=== PATIENT | female | born 1940 | race Caucasian/White ===

== ENCOUNTER → 2019-06-14 13:57 | Outpatient (BNVA) | payer MEDICARE, OTHER, SELFPAY | PROVIDERS: Family Provider Family Medicine; PCP Family Medicine; Visit Provider Urology | DX: N39.0 Urinary tract infection, site not specified (principal); R33.9 Retention of urine, unspecified | CPT/HCPCS: 81001 ==

== ENCOUNTER 2019-09-08 13:03 | Outpatient (RCR) | payer MEDICARE, OTHER, SELFPAY | END 2019-09-08 23:59 | disposition home or self-care (01) | LOC: WOUND 13:03 | PROVIDERS: Family Provider Family Medicine; PCP Family Medicine; Referring Provider Nurse Practitioner Family; Visit Provider Nurse Practitioner Family | DX: E11.621 Type 2 diabetes mellitus with foot ulcer (principal); L97.512 Non-pressure chronic ulcer of other part of right foot with fat layer exposed | CPT/HCPCS: 11042; 99213; A6545; L3260 ==

== ENCOUNTER 2019-09-22 12:56 | Outpatient (CLI) | payer MEDICARE, OTHER, SELFPAY | END 2019-09-22 12:57 | disposition home or self-care (01) | LOC: WOUND 12:59 | PROVIDERS: Family Provider Family Medicine; PCP Family Medicine; Visit Provider Nurse Practitioner Family | DX: E11.621 Type 2 diabetes mellitus with foot ulcer (principal); L97.512 Non-pressure chronic ulcer of other part of right foot with fat layer exposed | CPT/HCPCS: 11042 ==

== ENCOUNTER → 2019-10-05 12:59 | Outpatient (BNVA) | payer MEDICARE, OTHER, SELFPAY | PROVIDERS: Family Provider Family Medicine; PCP Family Medicine; Visit Provider Nurse Practitioner Family | DX: N39.0 Urinary tract infection, site not specified (principal) | CPT/HCPCS: 81001 ==

== ENCOUNTER 2019-12-26 10:13 | Day surgery (SDC) | payer MEDICARE, OTHER, SELFPAY ==
[2019-12-23 08:43] VITALS: BMI 20.2
[2019-12-26 10:37] VITALS: BP 118/62; PULSE 63; RESP 18; TEMP 37.1; O2SAT 98
[2019-12-26] MEDS: sodium chloride 0.9% 1,000 ML 30 ML IV (10:45)
[2019-12-26 10:52] LABS: Glucose Point of Care 121 mg/dL (70-110)
--- NOTE | 2019-12-26 11:08 | ANES.PREANE2 ---
Pre-Anesthetic Assessment Pre-Anesthetic Assessment: Height/Weight: Height 1.65 m Weight 55.338 kg Temp Pulse Resp BP Pulse Ox 98.7 F 63 18 118/62 98 12/26/19 10:37 12/26/19 10:37 12/26/19 10:37 12/26/19 10:37 12/26/19 10:37 Preop Diagnosis: history of BE Proposed Procedure: Operation Date: 12/26/19 11:30 Proposed Procedures p EGD 64779 K22.70(Not Applicable) - Shahriar Lee MD Familial anesthetic complications: none Was Beta Chris taken within 24 hours: Yes Last intake: Intake Last Liquid Date 12/25/19 Last Liquid Time 17:00 Last Solid Date 12/25/19 Last Solid Time 17:00 Social: Social History: No alcohol and No tobacco Airway: Submandibular: WNL Cervical ROM: WNL MP: 1 Dentition: Chipped and False Pulmonary: Pulmonary: None reported CV/HEM: CV/HEM: Afib and HTN : : UTI Hepatic: Hepatic: None reported GI: GI: GERD (controlled) Metabolic: Metabolic: DM and Hyperlipidemia Musc/skel: Musc/skel: OA/DJD Neuropsych: Neuropsych: None reported Anesthetic Plan: ASA status: 3 Anesthesia: MAC Risk of > 500 ml blood loss (7ml/kg in children): No Meds/Allergies Current Medications: Current Medications Generic Name Dose Route Start Last Admin Trade Name Freq PRN Reason Stop Dose Admin Sodium Chloride 1,000 mls @ 30 ml s/hr 12/26/19 10:30 12/26/19 10:45 Sodium Chloride 0.9% IV 12/27/19 10:29 30 mls/hr .Q24H PARVIN Administration PFSH Anesthesia PFSH: Medical History (Updated 12/22/19 @ 15:03 by Shahriar Lee MD) Amputated toe of right foot Cataract BILATERAL REMOVAL Incomplete emptying of bladder Recurrent UTI Surgical History H/O shoulder surgery History of appendectomy History of hysterectomy History of knee replacement RIGHT KNEE History of tonsillectomy Family History Other Bleeding disorder Diabetes Seizure Social History (Updated 12/22/19 @ 14:20 by Manjula Pleasant, CT) Smoking and tobacco status: never smoked Alcohol intake: never Adopted: No Caregiver/support person: No Lives independently: Yes Marital status: / Current occupational status: retired History of recent travel: No Data Anesthesia Other Labs: Laboratory Results - last 48 hr 12/26/19 10:47 POC Glucose 121 Cardiac Studies: No Data to Display
--- NOTE | 2019-12-26 11:14 | W.PM.OPSUD ---
Surgery/Procedure H&P Update DATE OF PROCEDURE: December 26, 2019 DATE H&P PERFORMED: 12/22/19 PREOP DIAGNOSIS: history of BE PLANNED PROCEDURE: Operation Date: 12/26/19 11:30 Proposed Procedures p EGD 62000 K22.70(Not Applicable) - Shahriar Lee MD
[2019-12-26 11:24] VITALS: BP 106/54; PULSE 54; RESP 16; TEMP 36.6; O2SAT 98
[2019-12-26 11:40] VITALS: BP 100/55; PULSE 55; RESP 18; O2SAT 98
== END 2019-12-26 11:55 | disposition home or self-care (01) ==
PROVIDERS: PCP Family Medicine; Visit Provider Internal Medicine
PROC: 0DJ08ZZ Inspection of Upper Intestinal Tract, Via Natural or Artificial Opening Endoscopic (ICD-10-PCS; CPT 43235; principal; 2019-12-26 11:30)
DX: K22.70 Barrett's esophagus without dysplasia (principal); K44.9 Diaphragmatic hernia without obstruction or gangrene; R63.4 Abnormal weight loss; I48.91 Unspecified atrial fibrillation; I10 Essential (primary) hypertension; E11.9 Type 2 diabetes mellitus without complications; E78.5 Hyperlipidemia, unspecified; Z79.01 Long term (current) use of anticoagulants; Z79.84 Long term (current) use of oral hypoglycemic drugs
CPT/HCPCS: 12345; 36416; 43239; 82962; 88305; J2704; J7030

== ENCOUNTER 2020-01-11 15:08 | Outpatient (CLI) | payer MEDICARE, OTHER, SELFPAY | END 2020-01-11 15:09 | disposition home or self-care (01) | LOC: WOUND 15:09 | PROVIDERS: PCP Family Medicine; Visit Provider Emergency Medicine | DX: E11.621 Type 2 diabetes mellitus with foot ulcer (principal); L97.512 Non-pressure chronic ulcer of other part of right foot with fat layer exposed; L97.422 Non-pressure chronic ulcer of left heel and midfoot with fat layer exposed | CPT/HCPCS: 11042; 87070; 87077; 87176; 87186; 87205; G0463 ==

== ENCOUNTER 2020-01-17 12:44 | Outpatient (CLI) | payer MEDICARE, OTHER, SELFPAY ==
--- NOTE | 2020-01-17 12:51 | XRR_ITS ---
PROCEDURE INFORMATION: Exam: XR Right Foot Complete Exam date and time: 01/17/2020 1:16 PM Age: 79 years old Clinical indication: Condition or disease; Other: Pain/redness/non healing ulcer/? Osteomyelitis; Prior surgery; Surgery type: Digit amputation TECHNIQUE: Imaging protocol: XR Right foot. Views: 3 or more views. COMPARISON: CR Foot 3 views, RIGHT* [id number] 08/15/2016 2:35 PM FINDINGS: Bones/joints: No acute fracture. Interval amputation of the 1st distal phalanx, prior amputations of the distal 2nd and 3rd phalanges. No definite cortical destruction. Soft tissues: Soft tissue swelling in the great toe. XR/XR foot RT min 3V* [id number] IMPRESSION: Postoperative changes, soft tissue swelling. Consider follow-up MRI if indicated.
--- NOTE | 2020-01-17 12:51 | XRR_ITS ---
PROCEDURE INFORMATION: Exam: XR Left Foot Complete Exam date and time: 01/17/2020 1:26 PM Age: 79 years old Clinical indication: Condition or disease; Other: Pain/redness/nonhealing ulcer/? Osteomyelitis; Prior surgery; Surgery type: Digit amputation TECHNIQUE: Imaging protocol: XR Left foot. Views: 3 or more views. COMPARISON: CR Foot 3 views, LEFT* [id number] 07/23/2016 2:58 PM FINDINGS: Bones/joints: No fracture or destructive bone lesion. Osteopenia. Soft tissues: Soft tissue swelling. No soft tissue air/gas. XR/XR foot LT min 3V* [id number] IMPRESSION: Soft tissue swelling.
== END 2020-01-17 12:45 | disposition home or self-care (01) ==
LOC: RAD 12:48
PROVIDERS: PCP Family Medicine; Visit Provider Emergency Medicine
DX: M79.672 Pain in left foot (principal); M79.671 Pain in right foot; M79.89 Other specified soft tissue disorders; L53.9 Erythematous condition, unspecified; L97.529 Non-pressure chronic ulcer of other part of left foot with unspecified severity; L97.519 Non-pressure chronic ulcer of other part of right foot with unspecified severity
CPT/HCPCS: 73630

== ENCOUNTER 2020-01-18 14:45 | Outpatient (CLI) | payer MEDICARE, OTHER, SELFPAY | END 2020-01-18 14:46 | disposition home or self-care (01) | LOC: WOUND 14:46 | PROVIDERS: PCP Family Medicine; Visit Provider Emergency Medicine | DX: E11.621 Type 2 diabetes mellitus with foot ulcer (principal); L97.512 Non-pressure chronic ulcer of other part of right foot with fat layer exposed; L97.422 Non-pressure chronic ulcer of left heel and midfoot with fat layer exposed | CPT/HCPCS: 11042 ==

== ENCOUNTER 2020-01-24 12:38 | Outpatient (CLI) | payer MEDICARE, OTHER, SELFPAY ==
--- NOTE | 2020-01-24 12:48 | USCV_ITS ---
Stella Kang Age: 79 Gender: F : 1940 Exam Date: 01/24/2020 12:38 Ordering Phys: Jodi Menchaca DO Technologist: Exam Location: [facility] – [place]_ Indication: PAIN, REDNESS NONHEALING ULCER RIGHT LEFT Brachial 134.00 mmHg Brachial 137.00 mmHg Pressure (mmHg) Waveform Pressure (mmHg) Waveform Above Knee 167.00 135.00 Below Knee 188.00 145.00 SEISMIC PROSPECTING OBSERVER HELPER 168.00 163.00 DPA 141.00 1.19 Ankle/Brachial Index 1.23 102.00 Pre-Exercise Toe Pressure 88.00 0.74 Pre-Exercise Toe/Brachial Index 0.64 FINDINGS Normal resting ABIs bilaterally Normal resting TBI on the right side with a slightly diminished resting TBI on the left side CONCLUSIONS 1. No significant arterial obstruction on the right side. 2. Normal resting SUKI with a slightly diminished resting TBI on the left side, suggestive of mild peripheral artery disease, involving the distal vessels Dr Selam Mitchell MD [facility] (Electronically Signed) Final Date: 24 January 2020 13:49 S
== END 2020-01-24 12:39 | disposition home or self-care (01) ==
LOC: RAD 12:42
PROVIDERS: PCP Family Medicine; Visit Provider Emergency Medicine
DX: M79.604 Pain in right leg (principal); M79.605 Pain in left leg; L53.9 Erythematous condition, unspecified; L97.529 Non-pressure chronic ulcer of other part of left foot with unspecified severity; L97.519 Non-pressure chronic ulcer of other part of right foot with unspecified severity
CPT/HCPCS: 93923

== ENCOUNTER 2020-01-25 14:19 | Outpatient (CLI) | payer MEDICARE, OTHER, SELFPAY ==
[2020-01-25 16:03] LABS: Basophils % 0.6 %; Eosinophils # 0.1 10^3/uL (0.0-0.8); Eosinophils % 2.6 %; Hematocrit 33.7 % (37.0-47.0); Hemoglobin 10.6 g/dL (11.5-15.3); Lymphocytes # 1.1 10^3/uL (0.8-4.8); Lymphocytes % 19.6 %; Mean Corpuscular HGB Conc 31.5 g/dL (30.0-36.0); Mean Corpuscular Volume 92.3 fL (81-99); Mean Platelet Volume 9.6 fL (7.4-10.4); Monocytes # 0.5 10^3/uL (0.2-0.9); Monocytes % 8.8 %; Neutrophils % 67.8 %; Nucleated Red Blood Cells % 0 %; Platelet Count 319 10^3/cmm (130-400); Red Blood Count 3.65 10^6/uL (4.1-5.3); Red Cell Distribution Width 14.3 % (12.1-15.1); White Blood Count 5.5 10^3/uL (4.0-10.0)
[2020-01-25 16:46] LABS: Estmated Average Glucose 123; Hemoglobin A1C 5.9 % (4.0-6.0)
[2020-01-25 17:21] LABS: Alanine Aminotransferase 8 U/L (0-33); Albumin Level 3.9 g/dL (3.5-5.2); Alkaline Phosphatase 59 IU/L (35-105); Anion Gap 15.6 (5-19); Aspartate Amino Transferase 12 U/L (0-32); Blood Urea Nitrogen 13 mg/dL (8-23); Calcium 8.8 mg/dL (8.5-10.5); Carbon Dioxide 25 mmol/L (22-29); Chloride 99 mmol/L (98-107); Globulin 3.5 g/dL (1.3-4.6); Glucose 139 mg/dL (65-115); Osmolality Calculated 282 mOsm/kg (285-295); Potassium 4.6 mmol/L (3.5-5.1); Prealbumin 19.7 mg/dL (20-40); Sodium 135 mmol/L (136-145); Total Bilirubin 0.3 mg/dL (0.15-1.2); Total Protein 7.4 g/dL (6.6-8.7)
[2020-01-25 17:54] LABS: Erythrocyte Sedimentation Rate 54 mm/hr (0-15)
== END 2020-01-25 14:20 | disposition home or self-care (01) ==
LOC: WOUND 14:20
PROVIDERS: PCP Family Medicine; Visit Provider Emergency Medicine
DX: E11.621 Type 2 diabetes mellitus with foot ulcer (principal); L97.512 Non-pressure chronic ulcer of other part of right foot with fat layer exposed; L97.422 Non-pressure chronic ulcer of left heel and midfoot with fat layer exposed
CPT/HCPCS: 11042; 36415; 80053; 83036; 84134; 85025; 85651; 86140

== ENCOUNTER 2020-01-30 09:16 | Outpatient (RCR) | payer MEDICARE, OTHER, SELFPAY ==
--- NOTE | 2020-01-23 07:41 | XR_ITS ---
WS: [id number] EXAM: LEFT FOOT: 3 VIEWS DATE OF EXAMINATION: 01/23/2020, 0839 hours COMPARISON: Left foot examination from 01/17/2020. HISTORY: 79 years old with pain and redness. Nonhealing ulcer. FINDINGS: Bone density is markedly decreased. Slight arthritis first metatarsal phalangeal joint with slight bu nion formation medial first metatarsal head as well as slight hallux valgus deformity. Slight arteria l calcified plaque changes. Slight arthritis talonavicular articulation. 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 Slight talar beaking. Generalized soft tissue edema seen over the metatarsal r egions. No fracture, lytic or blastic process is seen. No gas in the soft tissue seen. Arterial ather osclerotic plaque changes noted. XR/XR foot LT min 3V* [id number] IMPRESSION: Decreased bone density. Changes as described. Findings suggesting subtalar coal ition. No acute bony abnormality. Generalized soft tissue edema suggesting cell ulitis.
--- NOTE | 2020-01-23 07:41 | XR_ITS ---
WS: [id number] EXAM: RIGHT FOOT: 3 VIEWS DATE OF EXAMINATION: 01/23/2020, 0835 hours COMPARISON: Right foot examination from 01/17/2020 and 08/15/2016 HISTORY: 79 years old with nonhealing ulcers. Status post distal first great toe resection. FINDINGS: Bone density remains decreased. Amputation of the distal phalanx of the great toe is similar. General ized soft tissue edema seen in the foot. There is amputation of the second and third toes beyond the proximal phalanges again noted. No bony destruction to suggest ongoing osteomyelitis is seen. There a ppears to be irregularity involving the great toe remaining tip soft tissues suggesting a nonhealing wound. Soft tissue edema in the lower leg with calcifications suggesting multiple bouts of prior cell ulitis. Heel spur plantar aponeurosis insertion. No fracture, lytic or blastic process is seen. No so ft tissue abnormality noted. XR/XR foot RT min 3V* [id number] IMPRESSION: Amputation of the first, second and third distal toes as described. No definite findings of osteomyelitis. Generalized soft tissue edema suggesting cellulitis.
--- NOTE | 2020-01-23 07:41 | USCV_ITS ---
Stella Kang Age: 79 Gender: F : 1940 Exam Date: 01/23/2020 07:55 Ordering Phys: Jodi Menchaca DO Technologist: He Modi Exam Location: [facility] [place] Indication: HISTORY: Lower extremity edema. PROCEDURES: FINDINGS: All deep veins demonstrated compressibility without evidence of intraluminal thrombus or increased echogenicity. Spectral analysis of Doppler signals demonstrates normal response to compression maneuvers indicating patency without obstruction. Reflux determinations were made with the patient in the dependent position, the weight being on the contralateral leg. Vein measurements and reflux times are listed below were applicable. SIGNIFICANT REFLUX IN RT LESSER SAPH. SIGNIFICANT REFLUX IN LT GSV DIST CONCLUSIONS No evidence of DVT in the above-mentioned identifiable veins. Significant venous reflux of greater than 500 milliseconds(2529) were noted at the right proximal small saphenous vein segment, which was 0.3 cm in diameter and 1.2 cm deep from the surface. Significant venous reflux of greater than 500 ms(2009) was also noted at the distal greater saphenous vein segment on the left side, found to be 0.58 cm in diameter and 1.64 cm deep from the surface. No significant venous reflux was noted in the deep veins. Dr Selam Mitchell MD [facility] (Electronically Signed) Final Date: 23 January 2020 17:42 S
--- NOTE | 2020-01-23 07:41 | NM_ITS ---
WS: [id number] THREE-PHASE BONE SCAN HISTORY: PAIN/REDNESS/NONHEALING ULCER COMPARISON: RIGHT foot 01/23/2020 Patient is is injected with 26.4 mCi Tc99m HDP intravenously. Immediate angiographic phase imaging is performed over the area of concern. Static blood pool imaging also performed. Two-hour whole-body sc intigrams performed in anterior and posterior projections. Additional large field of view imaging sub mitted as necessary. 3 phase bone scan imaging is directed to the feet. 3 phase imaging of the distal RIGHT first toe is positive for changes of cellulitis and osteomyelitis . Involve the very distal first toe at the amputation site. Normal soft tissue uptake and renal uptake. Advanced degenerative changes at the LEFT knee joint and prior RIGHT knee arthroplasty. NM/NM bone 3 phase [id number] IMPRESSION: Acute focal osteomyelitis and cellulitis involving the very distal first RIGHT great toe.
--- NOTE | 2020-01-30 10:06 | XR_ITS ---
WS: [id number] CHEST XRAY TECHNIQUE: Portable chest. CLINICAL INFORMATION: PICC PLACEMENT COMPARISON: Mid SVC FINDINGS: Left PICC line with tip in the mid SVC. Heart: Cardiomegaly. Lungs: Lungs are clear. No consolidation or pleural effusion. Chronic emphysematous changes. Bones: Bilateral total shoulder arthroplasties. Osteopenia. Thoracic curve convex right. XR/XR chest 1V portable [id number] IMPRESSION: Left PICC line with tip in the mid SVC. No pneumothorax.
[2020-01-30] MEDS: vancomycin 1,000 MG in sodium chloride 0.9% 250 ML 250 MG IV (11:15)
[2020-01-30 12:32] LABS: Anion Gap 14.2 (5-19); Blood Urea Nitrogen 9 mg/dL (8-23); Calcium 8.6 mg/dL (8.5-10.5); Carbon Dioxide 24 mmol/L (22-29); Chloride 95 mmol/L (98-107); Glucose 127 mg/dL (65-115); Osmolality Calculated 268 mOsm/kg (285-295); Potassium 4.2 mmol/L (3.5-5.1); Sodium 129 mmol/L (136-145)
== END 2020-02-08 23:59 | disposition home or self-care (01) ==
LOC: OPS 09:16
PROVIDERS: PCP Family Medicine; Referring Provider Nurse Practitioner Family; Visit Provider Nurse Practitioner Family
DX: M79.671 Pain in right foot (principal); M79.672 Pain in left foot; R60.9 Edema, unspecified; L03.031 Cellulitis of right toe; M86.8X7 Other osteomyelitis, ankle and foot; Z89.421 Acquired absence of other right toe(s); Z45.2 Encounter for adjustment and management of vascular access device
CPT/HCPCS: 36569; 36592; 71045; 73630; 78315; 80048; 93970; 96365; A9561; J3370; J7050

== ENCOUNTER 2020-02-01 10:15 | Outpatient (CLI) | payer MEDICARE, OTHER, SELFPAY ==
[2020-02-01 10:56] LABS: Anion Gap 14.3 (5-19); Blood Urea Nitrogen 9 mg/dL (8-23); Calcium 8.2 mg/dL (8.5-10.5); Carbon Dioxide 25 mmol/L (22-29); Chloride 98 mmol/L (98-107); Glucose 124 mg/dL (65-115); Osmolality Calculated 276 mOsm/kg (285-295); Potassium 4.3 mmol/L (3.5-5.1); Sodium 133 mmol/L (136-145)
[2020-02-01 11:00] LABS: Vancomycin Trough 11.4 ug/mL (10-15)
== END 2020-02-01 10:16 | disposition home or self-care (01) ==
LOC: LAB 10:17
PROVIDERS: PCP Family Medicine; Visit Provider Emergency Medicine
DX: M86.9 Osteomyelitis, unspecified (principal)
CPT/HCPCS: 80048; 80202

== ENCOUNTER 2020-02-06 20:27 | Outpatient (CLI) | payer MEDICARE, OTHER, SELFPAY ==
[2020-02-06 21:12] LABS: Anion Gap 16.8 (5-19); Blood Urea Nitrogen 12 mg/dL (8-23); Calcium 8.9 mg/dL (8.5-10.5); Carbon Dioxide 26 mmol/L (22-29); Chloride 99 mmol/L (98-107); Glucose 172 mg/dL (65-115); Osmolality Calculated 290 mOsm/kg (285-295); Potassium 3.8 mmol/L (3.5-5.1); Sodium 138 mmol/L (136-145)
== END 2020-02-06 20:28 | disposition home or self-care (01) ==
LOC: LAB 20:30
PROVIDERS: PCP Family Medicine; Visit Provider Emergency Medicine
DX: M86.171 Other acute osteomyelitis, right ankle and foot (principal)
CPT/HCPCS: 80048; 80202

== ENCOUNTER 2020-02-08 14:20 | Outpatient (CLI) | payer MEDICARE, OTHER, SELFPAY | END 2020-02-08 14:21 | disposition home or self-care (01) | LOC: WOUND 14:21 | PROVIDERS: PCP Family Medicine; Visit Provider Nurse Practitioner Family | DX: E11.621 Type 2 diabetes mellitus with foot ulcer (principal); L97.512 Non-pressure chronic ulcer of other part of right foot with fat layer exposed; L97.522 Non-pressure chronic ulcer of other part of left foot with fat layer exposed | CPT/HCPCS: G0463 ==

== ENCOUNTER 2020-02-09 09:02 | Outpatient (CLI) | payer MEDICARE, OTHER, SELFPAY ==
[2020-02-09 09:53] LABS: Anion Gap 15.4 (5-19); Blood Urea Nitrogen 8 mg/dL (8-23); Calcium 8.8 mg/dL (8.5-10.5); Carbon Dioxide 24 mmol/L (22-29); Chloride 99 mmol/L (98-107); Glucose 132 mg/dL (65-115); Osmolality Calculated 278 mOsm/kg (285-295); Potassium 4.4 mmol/L (3.5-5.1); Sodium 134 mmol/L (136-145)
[2020-02-09 10:02] LABS: Vancomycin Trough 26.5 ug/mL (10-15)
== END 2020-02-09 09:03 | disposition home or self-care (01) ==
LOC: LAB 09:04
PROVIDERS: PCP Family Medicine; Visit Provider Emergency Medicine
DX: E11.9 Type 2 diabetes mellitus without complications (principal)
CPT/HCPCS: 80048; 80202

== ENCOUNTER 2020-02-13 08:20 | Outpatient (CLI) | payer MEDICARE, OTHER, SELFPAY ==
[2020-02-13 08:59] LABS: Vancomycin Trough 19.2 ug/mL (10-15)
[2020-02-13 09:07] LABS: Blood Urea Nitrogen 14 mg/dL (8-23); Calcium 8.7 mg/dL (8.5-10.5); Carbon Dioxide 26 mmol/L (22-29); Chloride 98 mmol/L (98-107); Glucose 113 mg/dL (65-115); Osmolality Calculated 283 mOsm/kg (285-295); Sodium 136 mmol/L (136-145)
== END 2020-02-13 08:21 | disposition home or self-care (01) ==
LOC: LAB 08:26
PROVIDERS: PCP Family Medicine; Visit Provider Emergency Medicine
DX: M86.10 Other acute osteomyelitis, unspecified site (principal)
CPT/HCPCS: 80048; 80202

== ENCOUNTER 2020-02-20 09:32 | Outpatient (CLI) | payer MEDICARE, OTHER, SELFPAY ==
[2020-02-20 11:00] LABS: Anion Gap 18.1 (5-19); Blood Urea Nitrogen 10 mg/dL (8-23); Calcium 8.9 mg/dL (8.5-10.5); Carbon Dioxide 24 mmol/L (22-29); Chloride 104 mmol/L (98-107); Glucose 154 mg/dL (65-115); Osmolality Calculated 296 mOsm/kg (285-295); Potassium 4.1 mmol/L (3.5-5.1); Sodium 142 mmol/L (136-145)
[2020-02-20 11:04] LABS: Vancomycin Trough 17.3 ug/mL (10-15)
== END 2020-02-20 09:33 | disposition home or self-care (01) ==
LOC: LAB 09:35
PROVIDERS: PCP Family Medicine; Visit Provider Emergency Medicine
DX: E11.9 Type 2 diabetes mellitus without complications (principal)
CPT/HCPCS: 80048; 80202; 81001

== ENCOUNTER 2020-02-22 13:22 | Outpatient (CLI) | payer MEDICARE, OTHER, SELFPAY | END 2020-02-22 13:23 | disposition home or self-care (01) | LOC: WOUND 13:23 | PROVIDERS: PCP Family Medicine; Visit Provider Nurse Practitioner Family | DX: E11.621 Type 2 diabetes mellitus with foot ulcer (principal); L97.512 Non-pressure chronic ulcer of other part of right foot with fat layer exposed; L97.422 Non-pressure chronic ulcer of left heel and midfoot with fat layer exposed | CPT/HCPCS: 99212 ==

== ENCOUNTER 2020-02-27 10:03 | Outpatient (CLI) | payer MEDICARE, OTHER, SELFPAY ==
[2020-02-27 11:01] LABS: Vancomycin Trough 17.9 ug/mL (10-15)
[2020-02-27 11:02] LABS: Anion Gap 16.7 (5-19); Blood Urea Nitrogen 14 mg/dL (8-23); Calcium 8.6 mg/dL (8.5-10.5); Carbon Dioxide 22 mmol/L (22-29); Chloride 104 mmol/L (98-107); Glucose 195 mg/dL (65-115); Osmolality Calculated 294 mOsm/kg (285-295); Potassium 3.7 mmol/L (3.5-5.1); Sodium 139 mmol/L (136-145)
== END 2020-02-27 10:04 | disposition home or self-care (01) ==
LOC: LAB 10:05
PROVIDERS: PCP Family Medicine; Visit Provider Emergency Medicine
DX: E11.9 Type 2 diabetes mellitus without complications (principal)
CPT/HCPCS: 80048; 80202

== ENCOUNTER 2020-03-01 11:14 | Outpatient (CLI) | payer MEDICARE, OTHER, SELFPAY | END 2020-03-01 11:15 | disposition home or self-care (01) | LOC: WOUND 11:17 | PROVIDERS: PCP Family Medicine; Visit Provider Nurse Practitioner Family | DX: E11.621 Type 2 diabetes mellitus with foot ulcer; L97.512 Non-pressure chronic ulcer of other part of right foot with fat layer exposed; L97.522 Non-pressure chronic ulcer of other part of left foot with fat layer exposed | CPT/HCPCS: 99212 ==

== ENCOUNTER 2020-03-05 16:05 | Outpatient (CLI) | payer MEDICARE, OTHER, SELFPAY ==
[2020-03-05 18:30] LABS: Blood Urea Nitrogen 18 mg/dL (8-23); Calcium 8.3 mg/dL (8.5-10.5); Carbon Dioxide 21 mmol/L (22-29); Chloride 100 mmol/L (98-107); Glucose 204 mg/dL (65-115); Osmolality Calculated 290 mOsm/kg (285-295); Sodium 136 mmol/L (136-145); Vancomycin Trough 19.6 ug/mL (10-15)
[2020-03-05 18:39] LABS: Anion Gap 19.6 (5-19)
[2020-03-05 18:40] LABS: Potassium 4.6 mmol/L (3.5-5.1)
== END 2020-03-05 16:06 | disposition home or self-care (01) ==
LOC: LAB 17:29
PROVIDERS: PCP Family Medicine; Visit Provider Emergency Medicine
DX: E11.9 Type 2 diabetes mellitus without complications (principal)
CPT/HCPCS: 80048; 80202

== ENCOUNTER 2020-03-08 13:19 | Outpatient (CLI) | payer MEDICARE, OTHER, SELFPAY | END 2020-03-08 13:20 | disposition home or self-care (01) | LOC: WOUND 13:20 | PROVIDERS: PCP Family Medicine; Visit Provider Nurse Practitioner Family | DX: L30.9 Dermatitis, unspecified (principal) | CPT/HCPCS: 99211 ==

== ENCOUNTER 2020-03-12 18:55 | Outpatient (CLI) | payer MEDICARE, OTHER, SELFPAY ==
[2020-03-12 20:05] LABS: Anion Gap 17.6 (5-19); Blood Urea Nitrogen 19 mg/dL (8-23); Calcium 8.5 mg/dL (8.5-10.5); Carbon Dioxide 23 mmol/L (22-29); Chloride 101 mmol/L (98-107); Glucose 149 mg/dL (65-115); Osmolality Calculated 289 mOsm/kg (285-295); Potassium 4.6 mmol/L (3.5-5.1); Sodium 137 mmol/L (136-145)
[2020-03-12 20:14] LABS: Vancomycin Trough 20.8 ug/mL (10-15)
== END 2020-03-12 18:56 | disposition home or self-care (01) ==
LOC: LAB 18:57
PROVIDERS: PCP Family Medicine; Visit Provider Emergency Medicine
DX: E11.9 Type 2 diabetes mellitus without complications (principal)
CPT/HCPCS: 80048; 80053; 80202; 82607; 82746; 83036; 84443; 85025; 85651; 86140

== ENCOUNTER → 2020-03-14 13:14 | Outpatient (BNVA) | payer MEDICARE, OTHER, SELFPAY | PROVIDERS: PCP Family Medicine; Visit Provider Nurse Practitioner Family | DX: N39.0 Urinary tract infection, site not specified (principal); R33.9 Retention of urine, unspecified | CPT/HCPCS: 81003 ==

== ENCOUNTER 2020-03-15 10:20 | Outpatient (CLI) | payer MEDICARE, OTHER, SELFPAY | END 2020-03-15 10:21 | disposition home or self-care (01) | LOC: WOUND 10:21 | PROVIDERS: PCP Family Medicine; Visit Provider Nurse Practitioner Family | DX: Z09 Encounter for follow-up examination after completed treatment for conditions other than malignant neoplasm (principal) | CPT/HCPCS: 99211; G0463 ==

== ENCOUNTER 2020-04-10 10:56 | Outpatient (CLI) | payer MEDICARE, OTHER, SELFPAY | END 2020-04-10 10:57 | disposition home or self-care (01) | LOC: WOUND 10:57 | PROVIDERS: PCP Family Medicine; Visit Provider Thoracic Surgery (Cardiothoracic Vascular Surgery) | DX: E11.621 Type 2 diabetes mellitus with foot ulcer (principal); L97.512 Non-pressure chronic ulcer of other part of right foot with fat layer exposed | CPT/HCPCS: 11042; L3260 ==

== ENCOUNTER 2020-04-16 14:16 | Outpatient (CLI) | payer MEDICARE, OTHER, SELFPAY ==
--- NOTE | 2020-04-16 14:39 | XR_ITS ---
WS: [id number] [place] [id number] REASON FOR EXAM: M25.561 - Pain in right knee FINDINGS: Total right knee arthroplasty. Prosthetic parts are in proper position and alignment. No significant bony abnormality. The left knee demonstrates [id number] in the lateral knee joint space, with significant sclerosis a nd deformity of the subarticular lateral femoral condyle. Severe narrowing of the medial knee joint s pace with subchondral sclerosis. Severe narrowing of the patellofemoral joint space with osteophytic spurring of the femur and patella . XR/[place] [id number] IMPRESSION: Efrp-wl-[id number] articulation in the lateral left knee joint space. Severe osteoart hritic changes in the medial and patellofemoral joint spaces. Total right knee arthroplasty without abnormality.
== END 2020-04-16 14:17 | disposition home or self-care (01) ==
PROVIDERS: PCP Internal Medicine; Visit Provider Internal Medicine
DX: M25.561 Pain in right knee (principal); Z96.651 Presence of right artificial knee joint
CPT/HCPCS: 73565

== ENCOUNTER 2020-04-25 15:16 | Outpatient (CLI) | payer MEDICARE, OTHER, SELFPAY | END 2020-04-25 15:17 | disposition home or self-care (01) | LOC: WOUND 15:17 | PROVIDERS: PCP Internal Medicine; Visit Provider Thoracic Surgery (Cardiothoracic Vascular Surgery) | DX: E11.621 Type 2 diabetes mellitus with foot ulcer (principal); L97.512 Non-pressure chronic ulcer of other part of right foot with fat layer exposed | CPT/HCPCS: 11042 ==

== ENCOUNTER 2020-05-09 11:01 | Outpatient (CLI) | payer MEDICARE, OTHER, SELFPAY | END 2020-05-09 11:02 | disposition home or self-care (01) | LOC: WOUND 11:02 | PROVIDERS: PCP Internal Medicine; Visit Provider Nurse Practitioner Family | DX: E11.621 Type 2 diabetes mellitus with foot ulcer (principal); L97.512 Non-pressure chronic ulcer of other part of right foot with fat layer exposed | CPT/HCPCS: 97597 ==

== ENCOUNTER 2020-05-16 10:41 | Outpatient (CLI) | payer MEDICARE, OTHER, SELFPAY | END 2020-05-16 10:42 | disposition home or self-care (01) | LOC: WOUND 10:43 | PROVIDERS: PCP Internal Medicine; Visit Provider Thoracic Surgery (Cardiothoracic Vascular Surgery) | DX: E11.621 Type 2 diabetes mellitus with foot ulcer (principal); L97.512 Non-pressure chronic ulcer of other part of right foot with fat layer exposed | CPT/HCPCS: 99212 ==

== ENCOUNTER → 2020-05-17 11:39 | Outpatient (BNVA) | payer MEDICARE, OTHER, SELFPAY | PROVIDERS: PCP Internal Medicine; Visit Provider Specialist | DX: M25.561 Pain in right knee (principal); M25.562 Pain in left knee; Z96.651 Presence of right artificial knee joint | CPT/HCPCS: 73560 ==

== ENCOUNTER 2020-05-23 09:38 | Outpatient (CLI) | payer MEDICARE, OTHER, SELFPAY ==
--- NOTE | 2020-05-23 11:08 | USCV_ITS ---
Stella Kang Age: 79 Gender: F : 1940 Exam Date: 05/23/2020 11:40 Ordering Phys: Godfrey Amezquita MD (Andy) ([email or web address] – [place]) Technologist: Usama Hines Exam Location: [facility] – [place] Indication: PAIN REDNESS SWELLING PROCEDURES: Venous duplex imaging was performed in only the right lower extremity. The following venous structures were evaluated: common femoral vein, profunda vein, proximal portion of the greater saphenous vein, superficial femoral vein, and the popliteal vein. In addition, the posterior tibial and peroneal trunk were evaluated. Serial compression, augmentation maneuvers, and spectral Doppler flow evaluation were performed. FINDINGS: Normal 2-D Doppler and augmentation and compressibility throughout the lower extremity venous structures. Additional imaging through the proximal calf veins also reveals no thrombus. Limited evaluation of the greater saphenous vein is patent with no thrombus.. CONCLUSIONS No evidence of right lower extremity DVT. Paolo Mars MD (Electronically Signed) Final Date: 23 May 2020 12:59 S
== END 2020-05-23 09:39 | disposition home or self-care (01) ==
LOC: WOUND 09:40
PROVIDERS: PCP Internal Medicine; Visit Provider Thoracic Surgery (Cardiothoracic Vascular Surgery)
DX: E11.621 Type 2 diabetes mellitus with foot ulcer (principal); L97.512 Non-pressure chronic ulcer of other part of right foot with fat layer exposed; M79.661 Pain in right lower leg
CPT/HCPCS: 93971; G0463

== ENCOUNTER 2020-05-28 13:33 | Outpatient (CLI) | payer MEDICARE, OTHER, SELFPAY | END 2020-05-28 13:34 | disposition home or self-care (01) | LOC: WOUND 13:36 | PROVIDERS: PCP Internal Medicine; Visit Provider Nurse Practitioner Family | DX: E11.621 Type 2 diabetes mellitus with foot ulcer (principal); L97.512 Non-pressure chronic ulcer of other part of right foot with fat layer exposed; L97.812 Non-pressure chronic ulcer of other part of right lower leg with fat layer exposed | CPT/HCPCS: 11042; 87070; 87176; 87205 ==

== ENCOUNTER 2020-06-05 11:00 | Outpatient (CLI) | payer MEDICARE, OTHER, SELFPAY ==
--- NOTE | 2020-06-05 11:13 | US_ITS ---
WS: [id number] INDICATION: Right knee infection TECHNIQUE: Ultrasound right knee FINDINGS: Ultrasound right knee area of concern. Soft tissue edema. Skin thickening consistent with i nfection and cellulitis. Diffuse soft tissue edema deep to the area of ulceration. Fluid collection m easuring 3.9 x 1.9 x 1.2 cm with internal debris. This is consistent with phlegmon/abscess and does n ot appear easily drainable. US/US soft tissue/extremity [id number] IMPRESSION: Diffuse soft tissue edema deep to the area of ulceration with irreg ular complex small fluid collection measuring 3.9 x 1.9 x 1.2 cm with internal debris consistent with phlegmon/abscess. This is not well encapsulated and does not appear easily drainable.
== END 2020-06-05 11:01 | disposition home or self-care (01) ==
LOC: RAD 11:06
PROVIDERS: PCP Internal Medicine; Visit Provider Thoracic Surgery (Cardiothoracic Vascular Surgery)
DX: M25.561 Pain in right knee (principal); L53.9 Erythematous condition, unspecified; R60.0 Localized edema
CPT/HCPCS: 76882

== ENCOUNTER 2020-06-06 13:45 | Outpatient (CLI) | payer MEDICARE, OTHER, SELFPAY | END 2020-06-06 13:46 | disposition home or self-care (01) | LOC: WOUND 13:46 | PROVIDERS: PCP Internal Medicine; Visit Provider Thoracic Surgery (Cardiothoracic Vascular Surgery) | DX: L97.812 Non-pressure chronic ulcer of other part of right lower leg with fat layer exposed (principal) | CPT/HCPCS: 99212 ==

== ENCOUNTER 2020-06-06 17:53 | Inpatient (IN) | payer MEDICARE, OTHER, SELFPAY ==
[2020-06-06 18:00] VITALS: BP 131/67; PULSE 73; RESP 16; TEMP 36.7; O2SAT 100; BMI 21.6
--- NOTE | 2020-06-06 18:14 | ED_ITS ---
HPI - General Adult General: Chief complaint: Medical Clearance Stated complaint: direct admit-medical clearance Time Seen by Provider: 06/06/20 18:06 Source: patient Mode of arrival: ambulatory Limitations: no limitations History of Present Illness: HPI narrative: 79-year-old female who was seen by wound care Dr. Amezquita today. He is concerned as she has a new wound over her gonzalez rgical scar on her right knee. He had spoke to the hospitalist and was going to send over for direct admission. Patient stopped the ER for medical clearance and for Covid clearance. She has no Covid complaints. States his wound has been going on for the last week. She denies any fever. Denies any worsening improving factors. Associated symptoms: Deny chest pain, dyspnea, headache(s), nausea, rash or vomiting Review of Systems Const: Denies: fever(s), chills, body aches or change in appetite Eyes: Denies: blurry vision or eye discomfort ENMT: Denies: throat pain or dental pain Card: Denies: chest pain Resp: Denies: dyspnea GI: Denies: abdominal pain, nausea, vomiting or diarrhea : Denies: dysuria Musc: Reports: joint redness; Denies: neck pain or back pain Skin/Breast: Denies: rash Neuro: Denies: headache(s) Psych: Denies: depression Shailesh/Lymph: Denies: easy bruising All/Imm: Denies: urticaria PFSH ED PFSH: Medical History (Updated 06/06/20 @ 18:29 by Wood Rosenberg MD) Afib 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 Incomplete emptying of bladder Muscular deconditioning Recurrent UTI Surgical History (Updated 06/06/20 @ 18:29 by Wood Rosenberg MD) H/O shoulder surgery History of appendectomy History of hysterectomy History of knee replacement RIGHT KNEE History of tonsillectomy Family History Other Bleeding disorder Diabetes Seizure Social History Smoking and tobacco status: never smoked Alcohol intake: never Adopted: No Caregiver/support person: No Lives independently: Yes Marital status: / Current occupational status: retired History of recent travel: No Physical Exam Const: COMMON NORMALS: no acute distress, patient oriented x3 and healthy appearing HENMT: COMMON NORMALS: normocephalic and atraumatic HEAD & SCALP: normocephalic and atraumatic Eye: COMMON NORMALS: Equal, round and reactive pupils present and EOMs intact bilaterally PUPIL: Yes Equal, round and reactive pupils present Neck/C-Spine: COMMON NORMALS: full ROM and supple Chest: COMMONS NORMALS: normal inspection of the chest and normal palpation of entire chest wall Resp: COMMON NORMALS: normal respiratory effort, No retractions, No use of accessory muscles and clear to auscultation bilaterally AUSCULTATION: clear to auscultation bilaterally Cardio: COMMON NORMALS: regular rate, regular rhythm and No murmurs present (Cardio) RATE: regular rate RHYTHM: regular rhythm GI: COMMON NORMALS: Normal to inspection, nondistended, normoactive bowel sounds present, Soft to palpation, non-tender and no masses PALPATION: Yes Soft to palpation Extremity: COMMON NORMALS: full ROM NARRATIVE EXTREMITY EXAM: Dime size wound to right knee with slight erythema. Neuro: COMMON NORMALS: patient oriented x3, moves all extremities and no focal motor deficits Psych: COMMON NORMALS: mental status grossly normal, Normal thought process present and cooperative THOUGHT PROCESS: Normal thought process present Skin: COMMON NORMALS: no rashes or lesions noted and no wounds GENERAL SKIN EXAM: no rashes or lesions noted Course Vital Signs: Vital signs: Vital Signs Temperature 98.0 F 06/06/20 18:00 Pulse Rate 73 06/06/20 18:00 Respiratory Rate 16 06/06/20 18:00 Blood Pressure 131/67 06/06/20 18:00 Pulse Oximetry 100 06/06/20 18:00 MDM - General Adult MDM Narrative: Medical decision making narrative: Patient presents here with open wound to right knee. Patient was sent here for direct admission. Patient did stop by the ER for medical clearance and has no Covid-like symptoms. I spoke to hospitalist Dr. Norton and will admit at this time. We will get blood work and antibiotics started. Discharge Plan Discharge Patient Disposition: Admitted As Inpatient Clinical Impression: History of knee replacement Open wound of right knee Qualifiers: Encounter type: initial encounter Qualified Code(s): S81.001A - Unspecified open wound, right knee, initial encounter Condition: Stable Coding Level of Care Code ED Chief Engineer'S Helper for Inez Fwd Exam Comprehensive
[2020-06-06] MEDS: vancomycin 1,000 MG in sodium chloride 0.9% 250 ML 250 MG IV (18:27)
--- NOTE | 2020-06-06 18:37 | CTR_ITS ---
PROCEDURE INFORMATION: Exam: CT Right Lower Extremity Without Contrast, Knee Exam date and time: 06/06/2020 6:38 PM Age: 79 years old Clinical indication: Swelling or effusion of joint; Knee; Prior surgery; Surgery date: 1-6 months; Additional info: H/o knee replacement, R/O osteo vs joint infection TECHNIQUE: Imaging protocol: CT of the Right lower extremity without contrast was performed. Exam focused on the knee. Radiation optimization: All CT scans at this facility use at least one of these dose optimization techniques: automated exposure control; mA and/or kV adjustment per patient size (includes targeted exams where dose is matched to clinical indication); or iterative reconstruction. COMPARISON: US soft tissue/extremity [id number] 06/05/2020 11:21 AM RADIATION DOSE METRICS: Total DLP (mGy-cm): 234.62 FINDINGS: Bones/joints: There is a total knee prosthesis in satisfactory alignment. Components are intact. No sign of loosening. No acute fracture is visible. There is limited evaluation of the periarticular bone due to streak artifact. There is a moderate size joint effusion visible in the suprapatellar recess. The fluid is of intermediate density. Bones are diffusely osteopenic. No bone erosions are seen. Soft tissues: Limited evaluation of periarticular soft tissues due to streak artifact. There is diffuse subcutaneous edema in the upper calf. There is a focus of pretibial skin ulceration and adjacent skin thickening. There is adjacent medial pretibial fluid and/or edematous soft tissues measuring 6.4 x 2.3 cm axial. The region is partially obscured by streak artifact and the presence of a fluid collection cannot be determined on this exam. Vasculature: There is extensive vascular calcification in the distal thigh and proximal calf. CT/CT knee RT wo con* [id number] IMPRESSION: 1. Fluid collection and/or edematous soft tissues anteromedial to the proximal tibia. Evaluation is very limited by streak artifact. It is unclear whether this finding correlates to the suspected abscess on ultrasound. 2. Intact and well aligned total knee prosthesis. 3. No fracture or bone erosion. Limited evaluation of the periprosthetic bone due to streak artifact. 4. Intermediate density knee effusion. Possible hemorrhagic or exudative fluid. Joint aspiration would be required to exclude infection. Radiation Dose CTDIVOL = (mGy): DLP = 234.62 (mGy-cm)
[2020-06-06 18:44] LABS: Basophils % 0.4 %; Eosinophils # 0.1 10^3/uL (0.0-0.8); Eosinophils % 1.3 %; Hematocrit 32.7 % (37.0-47.0); Hemoglobin 10.4 g/dL (11.5-15.3); Lymphocytes # 1.1 10^3/uL (0.8-4.8); Lymphocytes % 12.9 %; Mean Corpuscular HGB Conc 31.8 g/dL (30.0-36.0); Mean Corpuscular Volume 87.9 fL (81-99); Mean Platelet Volume 9.3 fL (7.4-10.4); Monocytes # 0.7 10^3/uL (0.2-0.9); Neutrophils # 6.26 10^3/uL (1.8-7.7); Nucleated Red Blood Cells % 0 %; Platelet Count 315 10^3/cmm (130-400); Red Blood Count 3.72 10^6/uL (4.1-5.3); Red Cell Distribution Width 15.8 % (12.1-15.1); White Blood Count 8.2 10^3/uL (4.0-10.0)
--- NOTE | 2020-06-06 18:48 | PC.NURSE ---
report called to ajay landa
--- NOTE | 2020-06-06 18:54 | PC.NURSE ---
pt reports itching with vancomycin. states the last time she was on this medicine, it took several days but eventually developed hives. discussed this with erp and he states give benadryl then continue vanc
[2020-06-06] MEDS: diphenhydrAMINE 50 mg/mL SDV 1mL 25 MG IVP (18:57)
[2020-06-06 18:59] LABS: Alanine Aminotransferase 7 U/L (0-33); Albumin Level 3.8 g/dL (3.5-5.2); Alkaline Phosphatase 77 IU/L (35-105); Anion Gap 15.9 (5-19); Aspartate Amino Transferase 11 U/L (0-32); Blood Urea Nitrogen 34 mg/dL (8-23); Calcium 9.6 mg/dL (8.5-10.5); Carbon Dioxide 25 mmol/L (22-29); Chloride 97 mmol/L (98-107); Glucose 130 mg/dL (65-115); Osmolality Calculated 285 mOsm/kg (285-295); Potassium 4.9 mmol/L (3.5-5.1); Sodium 133 mmol/L (136-145); Total Bilirubin 0.4 mg/dL (0.15-1.2); Total Protein 7.8 g/dL (6.6-8.7)
--- NOTE | 2020-06-06 19:26 | PM.HP ---
Providers/Chief Complaint Admitting Physician: Mathew Hickey MD Primary Care Provider: Shahriar Lee MD Chief Complaint: P/DR SOLIS - OPEN NON-HEALING R AMPUTATION WOUND History of Present Illness Stella Kang is a 79 year old female who has complex past medical history of atrial fibrillation chronic anticoagulation, status post total knee arthroplasty 5 to 6 years ago at [place] by Dr. Kauffman, patient follows up with wound care clinic for right toe ulcer which seems to be improving and healing however patient started experiencing pain and worsening edema of right leg she was diagnosed with cellulitis, she was started on Augmentin while she was following up with Dr. Webber and wound care clinic, because of worsening edema and pain and redness antibiotics were switched to Zyvox, for last 1 week she has been on this regimen, followed up with wound care clinic today on evaluation purulent drainage was found from right knee surgical site, she was sent to the ER for concern of right knee hardware infection. Of note, she also received vancomycin via PICC line for right total ulcer blood culture positive on 01/28 with Enterococcus faecalis and staph aureus which was vancomycin sensitive, 05/28 specimen from right knee was sterile. Patient is stating that her symptoms started about 10 to 12 days ago with right knee pain for which she has seen wound care and Dr. Webber she has been compliant with her antibiotics but her cellulitis seem to worse over time, she did not experience any nausea, vomiting, fever, chills, initially she noticed 2 small blisters which have ruptured. Her right knee pain has been getting worse gradually. Today when she went to wound care clinic she was asked to come to the hospital for further exploration and evaluation. She is not complaining of any active chest pain shortness of breath orthopnea and PND. Her last Eliquis dose was at 5:30 PM which he took before coming to the hospital. Diagnostics revealed stable hemoglobin, significantly high ESR, digoxin level is 2.0 creatinine 0.7 potassium 4.9, procalcitonin is pending along CRP, patient is not complaining of any active chest pain, heart rate 67 she is hemodynamically stable would request EKG Review of Systems Const: Reports: body aches and fatigue; Denies: fever(s) or chills Eyes: Denies: change in vision ENMT: Denies: throat pain Card: Denies: chest pain Resp: Denies: dyspnea GI: Denies: abdominal pain : Denies: flank pain Musc: Reports: extremity pain, joint pain, joint swelling, joint redness, joint warmth, joint stiffness, limited range of motion and muscle cramps Skin/Breast: Reports: new lesions and lesions Neuro: Denies: headache(s) or weakness in extremities Psych: Denies: anxiety Endo: Denies: polyuria Shailesh/Lymph: Denies: easy bruising All/Imm: Denies: urticaria Medications/Allergies Home Medications Medication Instructions Recorded Confirmed Last Taken Type acetaminophen 325 mg capsule 325 mg PO QID PRN 06/14/19 06/06/20 12/25/19 History apixaban 2.5 mg tablet 2.5 mg PO BID 06/14/19 06/06/20 06/06/20 17:30 History atorvastatin 10 mg tablet 10 mg PO BEDTIME 06/14/19 06/06/20 06/06/20 17:30 History digoxin 250 mcg (0.25 mg) tablet 250 mcg PO DAILY 06/14/19 06/06/20 06/06/20 08:30 History lisinopril 40 mg tablet 40 mg PO DAILY 06/14/19 06/06/20 06/06/20 08:30 History magnesium 250 mg tablet 250 mg PO DAILY 06/14/19 06/06/20 06/06/20 08:30 History methenamine hippurate 1 gram tablet 1 gm PO BID 06/14/19 06/06/20 06/06/20 17:30 History metoprolol succinate 25 mg 25 mg PO DAILY 06/14/19 06/06/20 06/06/20 08:30 History tablet,extended release 24 hr pantoprazole 40 mg tablet,delayed 40 mg PO BIDAC 06/14/19 06/06/20 06/06/20 17:30 History release furosemide 40 mg tablet 40 mg PO DAILY 10/05/19 06/06/20 06/06/20 08:30 History celecoxib 200 mg capsule 200 mg PO BID #60 cap 05/17/20 06/06/20 06/06/20 17:30 Rx hydrocodone 5 mg-acetaminophen 325 1 tab PO TID PRN 30 Days #90 tab 05/17/20 06/06/20 06/06/20 17:30 Rx mg tablet cetirizine 10 mg capsule 10 mg PO DAILY PRN 05/30/20 06/06/20 Unknown History Allergies Allergy/AdvReac Type Severity Reaction Status Date / Time aspirin Allergy unknown Verified 05/17/20 13:00 ezetimibe [From Zetia] Allergy unknown Verified 05/17/20 13:00 fenofibrate Allergy unknown Verified 05/17/20 13:00 lovastatin Allergy unknown Verified 05/17/20 13:00 NSAIDS (Non-Steroidal Allergy unknown Verified 05/17/20 13:00 Anti-Inflamma simvastatin [From Vytorin] Allergy unknown Verified 05/17/20 13:00 PFSH Acute PFSH: Medical History (Updated 06/06/20 @ 21:21 by Amara Murillo MD) Afib 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 Cataract BILATERAL REMOVAL Chronic anticoagulation Chronic venous insufficiency DM type 2 (diabetes mellitus, type 2) Improved after weight loss not on any antihyperglycemics Incomplete emptying of bladder Muscular deconditioning Recurrent UTI Surgical History H/O shoulder surgery History of appendectomy History of hysterectomy History of knee replacement RIGHT KNEE History of tonsillectomy Family History Other Bleeding disorder Diabetes Seizure Social History Smoking and tobacco status: never smoked Alcohol intake: never Adopted: No Caregiver/support person: No Lives independently: Yes Marital status: / Current occupational status: retired History of recent travel: No Vitals/I&O/Wt Last Vital Signs Temp 98.0 F 06/06/20 18:00 Pulse 73 06/06/20 18:00 Resp 16 06/06/20 18:00 BP 131/67 06/06/20 18:00 Pulse Ox 100 06/06/20 18:00 Weight last 48 hrs Weight 57.153 kg Physical Exam Narrative: EXAM NARRATIVE: Very pleasant elderly female who appears stated age not in any active distress S1, S2 variable no active murmur appreciated hemodynamically stable Saturating well on room air Abdomen soft nontender No acute respiratory distress Awake alert oriented x3 No neurological deficit GCS 15 EOMI, PERRLA Right lower extremity swelling noticed with venous stasis dermatitis hyperemia purulent cellulitis changes around right knee with purulent drainage around pustules Tender to touch, warm as compared to left leg No vascular compromise of lower extremities, right toe wound seems to be healing well it has clean base with good granulation tissue Appropriate mood and affect Data : 06/06/20 18:17 06/06/20 18:17 A&P Assessment and plan (1) Cellulitis of right knee: Status: Acute (2) Chronic venous insufficiency: Status: Acute (3) Afib: Status: Acute (4) History of knee replacement: Status: Acute Additional A&P Information Purulent cellulitis right knee Concern for infection of right knee hardware, she has history of right knee total arthroplasty about 5 to 6 years ago which was done at [place] I will continue her vancomycin and Zosyn for purulent cellulitis, obtain wound and blood culture, 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 fib, rate controlled no acute exacerbation, would request EKG, potassium is normal digoxin 2.0 heart rate 67 no active digoxin toxicity signs, no active signs of CHF, I will hold her Lasix which she was taking for right leg swelling, obtain venous Doppler I highly doubt patient will go for any surgical exploration in next 24 hours because of recent use of Eliquis I will keep her on cardiac diet for now DVT prophylaxis: SCDs Full code Attestations Medical Necessity Statement*: Anticipating stay in the hospital to cross more than 2 midnights continued IV antibiotics and surgical exploration of right knee for purulent cellulitis, rule out septic joint Time Spent in Patient Care: (>than 50% of time spent in counselling and/or direct pt care on unit). 50mins Coding Level of Care Code Acute Science Faculty Member for Chg Fwd Diagnoses Cellulitis of right knee L03.115 Chronic venous insufficiency I87.2 Afib I48.91 History of knee replacement Z96.659
[2020-06-06 19:50] LABS: Erythrocyte Sedimentation Rate 114 mm/hr (0-15)
[2020-06-06 20:01] VITALS: BP 118/50; PULSE 67; RESP 18; TEMP 36.6; O2SAT 97
--- NOTE | 2020-06-06 20:49 | PC.PHAR ---
Pharmacokinetic dosing service Date: 06/06/19 Time: 2100 Objective: Patient: Stella Vo Floor: 261-1 Age: 79 yo Serum creatinine: 0.7 mg/dL Height: 64.0 Inches Weight (kg): 57.153 Diagnosis: Relevant medical/social history: Cultures and sensitivities: Other labs: Assessment: IBW (kg): 54.70 Dosing wt(kg): 57.153 Estimated Creatinine clearance (ml/min): 57.2 CRCL method: Cockcroft and Gault using ibw(default). Drug selected: Vancomycin Loading dose (mg): 0 Vd (liters): 51.4 (factor used: 0.9 L/kg) Jam (hr-1): 0.052 Half life (hrs): 13.33 Recommended dose: 1000 mg Interval: 18 hrs Infusion time (hrs): 1.5 Predicted peak (mcg/mL): 30.8 Predicted trough (mcg/mL): 13.06 Total body weight is being used for vancomycin dosing. Renal function is stable [ ] /unstable [ ] Recommendations: Give Vancomycin 1000 mg q 18 hrs with an expected Cpeak of 30.8 mcg/ml and an expected Ctrough of 13.06 mcg/ml Renal dosing of other antibiotics (review renal dosing of other medications and list guidelines here): Thank you for the consult, will continue to follow. Signature: Montse Yarbrough [facility]
[2020-06-06] MEDS: piperacillin-tazobactam 3.375 GM in sodium chloride 0.9% (plus) 50 ML IV (20:53)
[2020-06-06 21:28] VITALS: PULSE 69
[2020-06-07] VITALS (9 sets, daily range): BP systolic 98–122; BP diastolic 38–64; PULSE 66–100; RESP 17–23; TEMP 36.7–37.2; O2SAT 94–99
[2020-06-07] MEDS: acetaminophen 325 mg Tablet PO ×2 (00:49→14:16)
[2020-06-07] MEDS: ondansetron 2 mg/ML SDV 2 mL 4 MG IVP (00:49)
[2020-06-07 00:56] LABS: Procalcitonin 0.11 ng/mL (0-0.5)
[2020-06-07 01:07] LABS: Iron 27 ug/dL (37-145); Percent Saturation 9.9 % (20-50); Total Iron Binding Capacity 272 mcg/dl; Unsaturated Iron Binding 245 ug/dL (112-347)
[2020-06-07] MEDS: piperacillin-tazobactam 3.375 GM in sodium chloride 0.9% (plus) 50 ML IV ×3 (03:33→22:23)
[2020-06-07 04:59] LABS: Basophils % 0.3 %; Eosinophils % 0.3 %; Hematocrit 27.9 % (37.0-47.0); Hemoglobin 8.8 g/dL (11.5-15.3); Lymphocytes # 0.3 10^3/uL (0.8-4.8); Lymphocytes % 2.7 %; Mean Corpuscular HGB Conc 31.5 g/dL (30.0-36.0); Mean Corpuscular Hemoglobin 27.7 pg (28.0-34.0); Mean Corpuscular Volume 87.7 fL (81-99); Mean Platelet Volume 9.3 fL (7.4-10.4); Monocytes # 0.3 10^3/uL (0.2-0.9); Monocytes % 2.4 %; Neutrophils # 11.18 10^3/uL (1.8-7.7); Nucleated Red Blood Cells % 0 %; Platelet Count 258 10^3/cmm (130-400); Red Blood Count 3.18 10^6/uL (4.1-5.3); Red Cell Distribution Width 15.9 % (12.1-15.1); White Blood Count 11.9 10^3/uL (4.0-10.0)
[2020-06-07 05:36] LABS: Alanine Aminotransferase < 5 U/L (0-33); Alkaline Phosphatase 58 IU/L (35-105); Anion Gap 13.9 (5-19); Aspartate Amino Transferase 10 U/L (0-32); Blood Urea Nitrogen 37 mg/dL (8-23); Calcium 8.8 mg/dL (8.5-10.5); Carbon Dioxide 26 mmol/L (22-29); Chloride 99 mmol/L (98-107); Glucose 130 mg/dL (65-115); Osmolality Calculated 288 mOsm/kg (285-295); Potassium 4.9 mmol/L (3.5-5.1); Sodium 134 mmol/L (136-145); Total Bilirubin 0.5 mg/dL (0.15-1.2)
[2020-06-07 05:46] LABS: Estmated Average Glucose 123; Hemoglobin A1C 5.9 % (4.0-6.0)
[2020-06-07 06:22] LABS: C Reactive Protein 39.2 mg/L (0.0-4.9)
[2020-06-07] MEDS: metoprolol succinate ER (24 HR) 25 mg Tablet PO (08:40)
[2020-06-07] MEDS: atorvastatin 40 mg Tablet 20 MG PO (08:40)
[2020-06-07] MEDS: sennosides-docusate Tablet 1 TAB PO (08:40)
[2020-06-07] MEDS: pantoprazole DR 40 mg Tablet PO (08:40)
--- NOTE | 2020-06-07 10:35 | PC.CHAP ---
Pastoral Care Encounter/Spiritual Assessment Type of Contact [] Declined graphic design intern visit [] Patient/Family/Request visit [] Outpatient visit [x] Follow-up visit [] Physician referral [] Code/Alert [] Routine visit [] Staff referral [] Actively dying [] Patient sleeping [] Family support [] [] Out of room [] Palliative care [] [] Receiving care in room [] Pre-surgical visit [] Trauma [] Long length of stay [] ICU visit [x] Other: Under medications Relational/Emotional Strength [] Patient feels connected with others/family/visitors/staff [] Distress [] Loneliness/isolation [] Abandonment Spirituality of Patient [] Person of Celina [] Attends Voodoo of their Celina [] Believes in Prayer [] Reads Bible or Lutheran materials [] There are Spiritual issues to be addressed Home Service Consultant Interventions [] Prayer [] Active listening [] Non-anxious presence [] Spiritual/emotional support [] Crisis/trauma care [] Spiritual counseling [] Bereavement support [] Provided bereavement packet [] Provided Bible/devotional materials [] Provided toy/stuffed animal, coloring book to patient or family member [] Provided Communion [] Anointing/Elton [] Salvation [] Completed spiritual assessment [] Other: Impact on Illness or Injury [] Angry [] Fearful [] Anxious [] Often cries [] Exhaustion [] Unable to work [] Unable to attend scientologist [] Unable to walk/stand [] Unable to read [] Unable to drive [] Unable to eat/drink [] Unable to sleep [] Unable to be with family [] Patient intubated [] Other: Summary Under medications probably needs a Follow-up visit Time spent with patient 5 mins
--- NOTE | 2020-06-07 11:29 | P.PN_ITS ---
Vitals/I&O/Wt Last Vital Signs Temp 98.7 F 06/07/20 10:51 Pulse 67 06/07/20 10:51 Resp 17 06/07/20 10:51 BP 108/49 06/07/20 10:51 Pulse Ox 99 06/07/20 10:51 06/06/20 06/07/20 06/07/20 22:59 06:59 14:59 Intake Total 50 / 50 120 / 120 Balance 50 / 50 120 / 120 Weight last 48 hrs Weight 57.153 kg Data : 06/07/20 04:46 06/07/20 04:46 Micro: Microbiology 06/06/20 18:21 Blood Culture - Preliminary Blood SPECIMEN COLLECTED 06/06/20 18:17 Blood Culture - Preliminary Blood SPECIMEN COLLECTED A&P Assessment and plan (1) Cellulitis of right knee: Status: Acute (2) Chronic venous insufficiency: Status: Acute (3) Afib: Status: Acute (4) History of knee replacement: Status: Acute Additional A&P Information Purulent cellulitis right knee Concern for infection of right knee hardware, she has history of right knee total arthroplasty about 5 to 6 years ago which was done at [place] I will continue her vancomycin and Zosyn for purulent cellulitis, obtain wound and blood culture, 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 fib, rate controlled no acute exacerbation, would request EKG, potassium is normal digoxin 2.0 heart rate 67 no active digoxin toxicity signs, no active signs of CHF, I will hold her Lasix which she was taking for right leg swelling, obtain venous Doppler I highly doubt patient will go for any surgical exploration in next 24 hours because of recent use of Eliquis I will keep her on cardiac diet for now DVT prophylaxis: SCDs Full code Coding Level of Care Code Acute Dynamite Packing Machine Feeder for Chg Fwd Diagnoses Cellulitis of right knee L03.115 Chronic venous insufficiency I87.2 Afib I48.91 History of knee replacement Z96.659
[2020-06-07 11:51] LABS: Thyroid Stimulating Hormone 2.58 uIU/mL (0.27-4.20)
[2020-06-07] MEDS: vancomycin 1,000 MG in sodium chloride 0.9% 250 ML 250 MG IV (12:49)
--- NOTE | 2020-06-07 15:58 | P.CONIM_ITS ---
Providers/Reason For Consult Consulting Physican/Specialty*: Dr. Glendy Webber Reason for Consult*: Infection Right TKA, placed in [place] ~5 years ago with subsequent revision shortly after Requesting Physcian: Mathew Hickey MD Attending Physician: Mathew Hickey MD Primary Care Provider: Shahriar Lee MD History of Present Illness History of Present Illness Stella Kang is a 79 year old female who I saw once in the office on May 17, 2020. She was seen at that time with cellulitis of the right lower extremity and with history of a right total knee placed in [place] approximately 5 years ago. There was no evidence of skin breakdown at that time. The patient was advised that as she was having pain in the knee, she would need to return to the primary surgeon. The patient actually has had this knee replaced and subsequently revised by Dr. Goodwin in [place]. He is still actively practicing there. She understood at the time of that visit that she would need to have care for this knee obtained there. She presented via direct admit from the wound care center clinic to the hospitalist team. I was called today to consult on the patient. I was not digital operations analyst, but the patient had skin breakdown i n the distal aspect of her previous incision. There was fluctuance medially. And the patient was draining. As previously discussed, it was recommended that the patient have her subsequent care in [place] with her index procedure physician. Review of Systems Const: Reports: body aches and fatigue; Denies: fever(s), chills or change in appetite Eyes: Denies: change in vision, blurry vision or eye discomfort ENMT: Denies: throat pain or dental pain Card: Denies: chest pain Resp: Denies: dyspnea GI: Denies: abdominal pain, nausea, vomiting or diarrhea : Denies: flank pain or dysuria Musc: Reports: extremity pain, joint pain, joint swelling, joint redness, joint warmth, joint stiffness, limited range of motion and muscle cramps; Denies: neck pain or back pain Skin/Breast: Reports: new lesions and lesions; Denies: rash Neuro: Denies: headache(s) or weakness in extremities Psych: Denies: anxiety or depression Endo: Denies: polyuria Shailesh/Lymph: Denies: easy bruising All/Imm: Denies: urticaria Meds/Allergies Home Medications and Allergies Home Medications Medication Instructions Recorded Confirmed Last Taken Type acetaminophen 325 mg capsule 325 mg PO QID PRN 06/14/19 06/06/20 12/25/19 History apixaban 2.5 mg tablet 2.5 mg PO BID 06/14/19 06/06/20 06/06/20 17:30 History atorvastatin 10 mg tablet 10 mg PO BEDTIME 06/14/19 06/06/20 06/06/20 17:30 History digoxin 250 mcg (0.25 mg) tablet 250 mcg PO DAILY 06/14/19 06/06/20 06/06/20 08:30 History lisinopril 40 mg tablet 40 mg PO DAILY 06/14/19 06/06/20 06/06/20 08:30 History magnesium 250 mg tablet 250 mg PO DAILY 06/14/19 06/06/20 06/06/20 08:30 History methenamine hippurate 1 gram tablet 1 gm PO BID 06/14/19 06/06/20 06/06/20 17:30 History metoprolol succinate 25 mg 25 mg PO DAILY 06/14/19 06/06/20 06/06/20 08:30 History tablet,extended release 24 hr pantoprazole 40 mg tablet,delayed 40 mg PO BIDAC 06/14/19 06/06/20 06/06/20 17:30 History release furosemide 40 mg tablet 40 mg PO DAILY 10/05/19 06/06/20 06/06/20 08:30 History celecoxib 200 mg capsule 200 mg PO BID #60 cap 05/17/20 06/06/20 06/06/20 17:30 Rx hydrocodone 5 mg-acetaminophen 325 1 tab PO TID PRN 30 Days #90 tab 05/17/20 06/06/20 06/06/20 17:30 Rx mg tablet cetirizine 10 mg capsule 10 mg PO DAILY PRN 05/30/20 06/06/20 Unknown History Allergies Allergy/AdvReac Type Severity Reaction Status Date / Time aspirin Allergy unknown Verified 05/17/20 13:00 ezetimibe [From Zetia] Allergy unknown Verified 05/17/20 13:00 fenofibrate Allergy unknown Verified 05/17/20 13:00 lovastatin Allergy unknown Verified 05/17/20 13:00 NSAIDS (Non-Steroidal Allergy unknown Verified 05/17/20 13:00 Anti-Inflamma simvastatin [From Vytorin] Allergy unknown Verified 05/17/20 13:00 Current Medications Current Medications Generic Name Dose Route Start Last Admin Trade Name Freq PRN Reason Stop Dose Admin Acetaminophen 325 mg 06/06/20 19:58 06/07/20 14:16 Acetaminophen 325 Mg Tablet PO 325 mg QID PRN Administration Pain Atorvastatin Calcium 20 mg 06/07/20 09:00 06/07/20 08:40 Atorvastatin 40 Mg Tablet PO 20 mg DAILY PARVIN Administration Piperacillin Sod/Tazobactam 50 mls @ 12.5 mls/hr 06/06/20 20:00 06/07/20 14:14 Sod 3.375 gm/ Sodium Chloride IV 12.5 mls/hr Q8H PARVIN Administration Protocol Vancomycin HCl 1,000 mg/ 250 mls @ 250 mls/hr 06/07/20 13:00 06/07/20 13:49 Sodium Chloride IV Infused Q18H PARVIN Infusion Metoprolol Succinate 25 mg 06/07/20 09:00 06/07/20 08:40 Metoprolol Succinate Er (24 Hr) 25 Mg Tablet PO 25 mg DAILY PARVIN Administration Ondansetron HCl 4 mg 06/07/20 00:43 06/07/20 00:49 Ondansetron 2 Mg/Ml Sdv 2 Ml IVP 4 mg Q6H PRN Administration NAUSEA AND VOMITING Pantoprazole Sodium 40 mg 06/07/20 09:00 06/07/20 08:[address] 40 Mg Tablet PO 40 mg DAILY PARVIN Administration Senna/Docusate Sodium 1 tab 06/07/20 09:00 06/07/20 08:40 Sennosides-Docusate Tablet PO 1 tab DAILY PARVIN Administration PFSH Acute PFSH: Medical History Afib 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 Cataract BILATERAL REMOVAL Chronic anticoagulation Chronic venous insufficiency DM type 2 (diabetes mellitus, type 2) Improved after weight loss not on any antihyperglycemics Incomplete emptying of bladder Muscular deconditioning Recurrent UTI Surgical History H/O shoulder surgery History of appendectomy History of hysterectomy History of knee replacement RIGHT KNEE History of tonsillectomy Family History Other Bleeding disorder Diabetes Seizure Social History Smoking and tobacco status: never smoked Alcohol intake: never Adopted: No Caregiver/support person: No Lives independently: Yes Marital status: / Current occupational status: retired History of recent travel: No Dietary Habits: Current diet type/program: regular Vitals/I&O/Wt Last Vital Signs Temp 99.0 F 06/07/20 15:24 Pulse 66 06/07/20 15:24 Resp 18 06/07/20 15:24 BP 117/60 06/07/20 15:24 Pulse Ox 98 06/07/20 15:24 06/07/20 06/07/20 06/07/20 06:59 14:59 22:59 Intake Total 50 / 50 540 / 540 Balance 50 / 50 540 / 540 Weight last 48 hrs Weight 126 lb Physical Exam Const: COMMON NORMALS: no acute distress, average body habitus, patient oriented x3 and alert GENERAL APPEARANCE: cooperative and comfortable ORIENTATION/CONSCIOUSNESS: Yes awake HENMT: COMMON NORMALS: normocephalic and atraumatic HEAD & SCALP: normocephalic and atraumatic Eye: GENERAL EYE: appearance normal, both eyes and all related structures Chest: COMMONS NORMALS: normal inspection of the chest Resp: COMMON NORMALS: normal respiratory effort EFFORT & INSPECTION: Yes able to speak in complete sentences and Yes symmetric chest movement Extremity: RIGHT LOWER EXTREMITY: Yes knee joint (Draining ulcer at the distal aspect of the prior incision) Right knee: Yes inspection (There is cellulitis to the area of the proximal tibia.), Yes palpation (I am able to express purulent fluid with palpation of the joint), Yes ROM (Patient is able to actively lift her leg.) and Yes neurovascular exam (Intact distally with cellulitis) Neuro: COMMON NORMALS: patient oriented x3 SENSORIUM/ORIENTATION: Yes alert Psych: COMMON NORMALS: mental status grossly normal APPEARANCE: Yes grossly normal ATTITUDE: Yes calm and Yes engaged ATTENTION/CONCENTRATION: Yes attention grossly intact Skin: COMMON NORMALS: no rashes or lesions noted GENERAL SKIN EXAM: no rashes or lesions noted Data Micro: Micro: Microbiology 06/06/20 18:21 Blood Culture - Pr eliminary Blood [facility] 06/06/20 18:17 Blood Culture - Pr eliminary Blood [facility] A&P Assessment and plan (1) Infection of total right knee replacement: Status: Acute Qualifiers: Encounter type: initial encounter Qualified Code(s): T84.53XA - Infection and inflammatory reaction due to internal right knee prosthesis, initial encounter (2) History of knee replacement: The patient saw me one time in the office for an evaluation of bilateral knees which were painful. She had history of a right total knee arthroplasty with subsequent revision on the right knee. This was the more painful knee for her. She also had a ulceration on her foot and cellulitis of her leg. At that time, I advised her that she would need to proceed with treatment in [place] at the practice of the index surgeon. She understood that. Unfortunately, she was direct admitted last evening from wound care clinic to the hospital with an open draining sinus to the right total knee. I was able to express purulent fluid by palpation of the slight knee effusion. This fluid was thickened and purulent at the same time. I again advised the patient that there are multiple reasons for transfer to the index procedure surgeon. This will likely require removal of his previous prosthesis. There will likely be large bone loss, and we do not have the expertise at this institution to proceed with something along the lines of a distal femoral replacement. Additionally, she has quite thinned skin anteriorly and may require plastics expertise for wound closure and coverage of this prosthesis. Given the multiple potential issues and complexity, I once again advised that she is transferred to the practice of the index surgeon. If he is not comfortable proceeding with treatment of this, she would require further upper level of care such as [facility], [facility] or [place]. Comment has been made that the cellulitis has improved significantly with current IV antibiotic treatment. She could delay transfer for 2 to 3 days if necessary. She will continue on current IV treatment. Also, she chronically is on apixaban and would require time off of this prior to surgical intervention. Status: Acute Qualifiers: Laterality: right Qualified Code(s): Z96.651 - Presence of right artificial knee joint Consult Attestations Medical Necessity Statement: Per hospitalist team. Coding Level of Care Code Acute Commercial Stripper for Inez Michelle Diagnoses Infection of total right knee replacement T84.53XA Encounter type: initial encounter History of knee replacement Z96.651 Laterality: right
--- NOTE | 2020-06-07 16:07 | PM.TDS ---
Transfer Summary Providers Date of Admission: 06/06/20 18:23 Date of Discharge: 06/08/20 Attending Provider at Admission: Mathew Hickey MD Attending Provider at Transfer: Mathew Hickey MD Consults: Orthopedics: Dr. Webber Primary Care Provider: Shahriar Lee MD Anticipated Date of Transfer: Anticipated date of transfer: 06/08/20 Receiving Facility & Provider: Receiving Provider: [Dr. Christie] Receiving facility: [[facility] orthopedic service] Diagnoses at Discharge Discharge Diagnosis (1) Cellulitis of right knee: Status: Acute (2) Chronic venous insufficiency: Status: Acute (3) Afib: Status: Acute (4) History of knee replacement: Status: Acute Permanent problem details: RIGHT KNEE (5) Septic arthritis: Status: Acute Reason for Visit Reason for Visit: P/DR SOLIS - OPEN NON-HEALING R AMPUTATION WOUND Hospital Course Hospital Course Stella Kang is a 79 year old female who has complex past medical history of atrial fibrillation chronic anticoagulation, 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 Kauffman, patient follows up with wound care clinic for right toe ulcer which seems to be improving and healing however patient started experiencing pain and worsening edema of right leg she was diagnosed with cellulitis, she was started on Augmentin while she was following up with Dr. Webber and wound care clinic, because of worsening edema and pain and redness antibiotics were switched to Zyvox, for last 1 week she has been on this regimen, followed up with wound care clinic today on evaluation purulent drainage was found from right knee surgical site, she was sent to the ER for concern of right knee hardware infection. Of note, she also received vancomycin via PICC line for right total ulcer blood culture positive on 01/28 with Enterococcus faecalis and staph aureus which was vancomycin sensitive, 05/28 specimen from right knee was sterile. Patient is stating that her symptoms started about 10 to 12 days ago with right knee pain for which she has seen wound care and Dr. Webber she has been compliant with her antibiotics but her cellulitis seem to worse over time, she did not experience any nausea, vomiting, fever, chills, initially she noticed 2 small blisters which have ruptured. Her right knee pain has been getting worse gradually. Today when she went to wound care clinic she was asked to come to the hospital for further exploration and evaluation. She is not complaining of any active chest pain shortness of breath orthopnea and PND. Her last Eliquis dose was at 5:30 PM which he took before coming to the hospital. Diagnostics revealed stable hemoglobin, significantly high ESR, digoxin level is 2.0 creatinine 0.7 potassium 4.9, procalcitonin is pending along CRP, patient is not complaining of any active chest pain, heart rate 67 she is hemodynamically stable would request EKG. Patient admitted to the hospital and was started on broad-spectrum antibiotics. CT knee was done which was concerning for fluid collection/edema to soft tissue material anterior medial to proximal tibia with possible streak artifact, intermediate density knee effusion possible exudative fluid versus hemorrhagic fluid. As they have a high concern of septic arthritis versus infected prosthesis from previous knee replacement and knee revision in last 5 to 6 years orthopedics was consulted. Orthopedics service recommended transfer to hospital where she had primary knee replacement. Case was further discussed with Dr. Christie from [facility] and he graciously accepted patient under his team. Patient is been discharged in hemodynamically stable condition. Of note, patient's last dose of Eliquis was on June 06 at 5:30 PM. Physical Exam Narrative: EXAM NARRATIVE: General: No acute distress, AO x3, pleasant, frail HEENT: PERRLA, pupils bilaterally equal and reactive Chest: Normal vesicular breath sounds, no added sounds, equal good air entry bilaterally CVS: S1-S2 irregularly irregular, soft pansystolic murmur at apex, no tachycardia, no gallops, no rubs Abdomen: Soft, nontender, no organomegaly, bowel sounds present Neuro: No focal deficits, no facial deformity, AO x3, power 5/5 in all limbs Extremities: Right knee and anteromedial leg shiny, warm, erythematous. Anterior medial aspect of right knee fluctuant with elevated temperature to touch. TS Data Data Completed and Pending: Completed Studies During Hospitalization Category Date Time Status CT knee RT wo con * [id number] Urgent Cat Scan 06/06/20 18:37 Completed Pending at discharge Category Date Time Status Blood Culture Sta t Lab 06/06/20 18:21 Results Complete Blood Co unt w/Auto AM LABS Lab 06/08/20 04:00 Ordered Comprehensive Met abolic Panel AM LA BS Lab 06/08/20 04:00 Ordered Miscellaneous Maggie t Routine Lab 06/07/20 03:50 Received Vancomycin Trough Timed Lab 06/08/20 06:00 Ordered Wound Culture Sta t Lab 06/06/20 18:29 Received Labs from last 24 hours 06/07/20 06/07/20 06/07/20 04:46 04:46 04:46 WBC RBC Hgb Hct MCV MCH MCHC RDW Plt Count MPV Neut % (Auto) Lymph % (Auto) [place] % (Auto) Eos % (Auto) Baso % (Auto) Neut # (Auto) Lymph # (Auto) [place] # (Auto) Eos # (Auto) Baso # (Auto) Nucleated RBC % (a uto) Nucleated RBCs # ESR Sodium 134 L Potassium 4.9 Chloride 99 Carbon Dioxide 26 Anion Gap 13.9 BUN 37 H Creatinine 1.0 H GFR Calculation Not Reportable Glucose 130 H Estimat Average Gl ucose 123 Hemoglobin A1c 5.9 Calculated Osmolal ity 288 Calcium 8.8 Iron TIBC % Saturation Unsat Iron Binding Total Bilirubin 0.5 AST 10 ALT < 5 Alkaline Phosphata se 58 C-Reactive Protein Total Protein 6.0 L D Albumin 3.0 L Globulin 3.0 Procalcitonin TSH 2.58 Digoxin Misc Test Referenc e 06/07/20 06/07/20 06/06/20 04:46 03:50 20:20 WBC 11.9 H RBC 3.18 L Hgb 8.8 L Hct 27.9 L MCV 87.7 MCH 27.7 L MCHC 31.5 RDW 15.9 H Plt Count 258 MPV 9.3 Neut % (Auto) 94.0 Lymph % (Auto) 2.7 [place] % (Auto) 2.4 Eos % (Auto) 0.3 Baso % (Auto) 0.3 Neut # (Auto) 11.18 H Lymph # (Auto) 0.3 L [place] # (Auto) 0.3 Eos # (Auto) 0.0 Baso # (Auto) 0.0 Nucleated RBC % (a uto) 0 Nucleated RBCs # 0.0 ESR Sodium Potassium Chloride Carbon Dioxide Anion Gap BUN Creatinine GFR Calculation Glucose Estimat Average Gl ucose Hemoglobin A1c Calculated Osmolal ity Calcium Iron TIBC % Saturation Unsat Iron Binding Total Bilirubin AST ALT Alkaline Phosphata se C-Reactive Protein Total Protein Albumin Globulin Procalcitonin TSH Digoxin 2.0 H Misc Test Referenc e Pending 06/06/20 06/06/20 06/06/20 18:17 18:17 18:17 WBC RBC Hgb Hct MCV MCH MCHC RDW Plt Count MPV Neut % (Auto) Lymph % (Auto) [place] % (Auto) Eos % (Auto) Baso % (Auto) Neut # (Auto) Lymph # (Auto) [place] # (Auto) Eos # (Auto) Baso # (Auto) Nucleated RBC % (a uto) Nucleated RBCs # ESR 114 H Sodium 133 L Potassium 4.9 Chloride 97 L Carbon Dioxide 25 Anion Gap 15.9 BUN 34 H Creatinine 0.7 GFR Calculation Not Reportable Glucose 130 H Estimat Average Gl ucose Hemoglobin A1c Calculated Osmolal ity 285 Calcium 9.6 Iron 27 L TIBC 272 % Saturation 9.9 L Unsat Iron Binding 245 Total Bilirubin 0.4 AST 11 ALT 7 Alkaline Phosphata se 77 C-Reactive Protein 39.2 H Total Protein 7.8 Albumin 3.8 Globulin 4.0 Procalcitonin 0.11 TSH Digoxin Misc Test Referenc e 06/06/20 18:17 WBC 8.2 RBC 3.72 L Hgb 10.4 L Hct 32.7 L MCV 87.9 MCH 28.0 MCHC 31.8 RDW 15.8 H Plt Count 315 MPV 9.3 Neut % (Auto) 76.0 Lymph % (Auto) 12.9 [place] % (Auto) 9.0 Eos % (Auto) 1.3 Baso % (Auto) 0.4 Neut # (Auto) 6.26 Lymph # (Auto) 1.1 [place] # (Auto) 0.7 Eos # (Auto) 0.1 Baso # (Auto) 0.0 Nucleated RBC % (a uto) 0 Nucleated RBCs # 0.0 ESR Sodium Potassium Chloride Carbon Dioxide Anion Gap BUN Creatinine GFR Calculation Glucose Estimat Average Gl ucose Hemoglobin A1c Calculated Osmolal ity Calcium Iron TIBC % Saturation Unsat Iron Binding Total Bilirubin AST ALT Alkaline Phosphata se C-Reactive Protein Total Protein Albumin Globulin Procalcitonin TSH Digoxin Misc Test Referenc e Vitals: Last Vital Signs Temp 99.0 F 06/07/20 15:24 Pulse 66 06/07/20 15:24 Resp 18 06/07/20 15:24 BP 117/60 06/07/20 15:24 Pulse Ox 98 06/07/20 15:24 TS Medications Medications Home Medications acetaminophen 325 mg capsule 325 mg PO QID PRN 06/14/19 [History Confirmed 06/06/20] apixaban 2.5 mg tablet 2.5 mg PO BID 06/14/19 [History Confirmed 06/06/20] atorvastatin 10 mg tablet 10 mg PO BEDTIME 06/14/19 [History Confirmed 06/06/20] digoxin 250 mcg (0.25 mg) tablet 250 mcg PO DAILY 06/14/19 [History Confirmed 06/06/20] lisinopril 40 mg tablet 40 mg PO DAILY 06/14/19 [History Confirmed 06/06/20] magnesium 250 mg tablet 250 mg PO DAILY 06/14/19 [History Confirmed 06/06/20] methenamine hippurate 1 gram tablet 1 gm PO BID 06/14/19 [History Confirmed 06/06/20] metoprolol succinate 25 mg tablet,extended release 24 hr 25 mg PO DAILY 06/14/19 [History Confirmed 06/06/20] pantoprazole 40 mg tablet,delayed release 40 mg PO BIDAC 06/14/19 [History Confirmed 06/06/20] furosemide 40 mg tablet 40 mg PO DAILY 10/05/19 [History Confirmed 06/06/20] celecoxib 200 mg capsule 200 mg PO BID #60 cap 05/17/20 [Rx Confirmed 06/06/20] hydrocodone 5 mg-acetaminophen 325 mg tablet 1 tab PO TID PRN 30 Days #90 tab 05/17/20 [Rx Confirmed 06/06/20] cetirizine 10 mg capsule 10 mg PO DAILY PRN 05/30/20 [History Confirmed 06/06/20] Active Medications Acetaminophen (Acetaminophen 325 Mg Tablet) 325 mg PO QID PRN PRN Reason: Pain Last Admin: 06/07/20 14:16 Dose: 325 mg Documented by: Atorvastatin Calcium (Atorvastatin 40 Mg Tablet) 20 mg PO DAILY PARVIN Last Admin: 06/07/20 08:40 Dose: 20 mg Documented by: Hydromorphone HCl (Hydromorphone 1 Mg/Ml Inj 1 Ml) 0.5 mg IVP Q4H PRN PRN Reason: pain Piperacillin Sod/Tazobactam (Sod 3.375 gm/ Sodium Chloride) 50 mls @ 12.5 mls/hr IV Q8H [facility]; Protocol Last Admin: 06/07/20 14:14 Dose: 12.5 mls/hr Documented by: Vancomycin HCl 1,000 mg/ (Sodium Chloride) 250 mls @ 250 mls/hr IV Q18H [facility] Last Infusion: 06/07/20 13:49 Dose: Infused Documented by: Lisinopril (Lisinopril 20 Mg Tablet) 20 mg PO DAILY [facility] Metoprolol Succinate (Metoprolol Succinate Er (24 Hr) 25 Mg Tablet) 25 mg PO DAILY [facility] Last Admin: 06/07/20 08:40 Dose: 25 mg Documented by: Ondansetron HCl (Ondansetron 2 Mg/Ml Sdv 2 Ml) 4 mg IVP Q6H PRN PRN Reason: NAUSEA AND VOMITING Last Admin: 06/07/20 00:49 Dose: 4 mg Documented by: Pantoprazole Sodium (Pantoprazole Dr 40 Mg Tablet) 40 mg PO DAILY [facility] Last Admin: 06/07/20 08:40 Dose: 40 mg Documented by: Senna/Docusate Sodium (Sennosides-Docusate Tablet) 1 tab PO DAILY [facility] Last Admin: 06/07/20 08:40 Dose: 1 tab Documented by: Discharge Plan Discharge Patient Disposition: Xfer Short-Term Hosp Condition: Stable Prescriptions: No Action furosemide 40 mg tablet 40 mg PO DAILY RF: 0 methenamine hippurate 1 gram tablet 1 gm PO BID RF: 0 acetaminophen [Tylenol] 325 mg capsule 325 mg PO QID PRN (Reason: Pain) RF: 0 magnesium 250 mg tablet 250 mg PO DAILY RF: 0 metoprolol succinate 25 mg tablet extended release 24 hr 25 mg PO DAILY RF: 0 atorvastatin 10 mg tablet 10 mg PO BEDTIME RF: 0 digoxin [Lanoxin] 250 mcg (0.25 mg) tablet 250 mcg PO DAILY RF: 0 pantoprazole [Protonix] 40 mg tablet,delayed release (DR/EC) 40 mg PO BIDAC RF: 0 lisinopril 40 mg tablet 40 mg PO DAILY RF: 0 Eliquis 2.5 mg tablet 2.5 mg PO BID RF: 0 cetirizine 10 mg capsule 10 mg PO DAILY PRN (Reason: Allergy Symptoms) RF: 0 celecoxib [Celebrex] 200 mg capsule 200 mg PO BID Qty: 60 RF: 6 hydrocodone-acetaminophen [[place]] 5-325 mg tablet 1 tab PO TID PRN (Reason: pain) 30 Days Qty: 90 RF: 0 Referrals: Shahriar Lee MD [Primary Care Provider] - Transfer Attestations Time Spent in Transfer Care*: greater than 30 min Specific Discharge Activities: Specific discharge activities: educating patient, discussing with pcp/other providers, discussing with case technician/social workers/dc planners, documenting/other paperwork and evaluating patient/reviewing data Status at Transfer: Cognitive status at transfer: cognitively intact, Behavioral status at transfer: cooperative, Functional status at transfer: uses cane/walker Overall status at transfer: patient is progressing back to baseline Quality Metrics Clinical Quality Measures: During this hospital stay, did patient experience: None Coding Level of Care Code Acute 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
--- NOTE | 2020-06-07 23:15 | PC.NURSE ---
Called Miriam BRENNAN at [facility] and let her know that patient has just left.
== END 2020-06-07 11:20 | disposition short-term general hospital (02) | DRG 560 ==
LOC: ER 18:29 → MEDSURG 18:36
PROVIDERS: Internal Medicine; Admitting Provider Student in an Organized Health Care Education/Training Program; Emergency Provider Emergency Medicine; PCP Internal Medicine; Visit Provider Student in an Organized Health Care Education/Training Program
DX: T84.53XA Infection and inflammatory reaction due to internal right knee prosthesis, initial encounter (principal); L03.115 Cellulitis of right lower limb; L97.518 Non-pressure chronic ulcer of other part of right foot with other specified severity; L97.818 Non-pressure chronic ulcer of other part of right lower leg with other specified severity; Y79.1 Therapeutic (nonsurgical) and rehabilitative orthopedic devices associated with adverse incidents; I48.91 Unspecified atrial fibrillation; Z89.421 Acquired absence of other right toe(s); K22.70 Barrett's esophagus without dysplasia; E11.621 Type 2 diabetes mellitus with foot ulcer; E11.51 Type 2 diabetes mellitus with diabetic peripheral angiopathy without gangrene; R33.9 Retention of urine, unspecified; Z87.440 Personal history of urinary (tract) infections; Z79.01 Long term (current) use of anticoagulants; Z79.891 Long term (current) use of opiate analgesic
CPT/HCPCS: 12345; 36415; 73700; 76882; 80053; 80162; 83036; 83540; 83550; 84145; 84443; 85025; 85651; 86140; 87040; 87070; 87641; 99212; 99282; J1200; J2405; J2543; J3370; J7050

== ENCOUNTER → 2020-09-11 14:09 | Outpatient (BNVA) | payer MEDICARE, OTHER, SELFPAY | PROVIDERS: PCP Internal Medicine; Visit Provider Urology | DX: N39.0 Urinary tract infection, site not specified (principal); R33.9 Retention of urine, unspecified | CPT/HCPCS: 81003; 87086 ==

== ENCOUNTER 2020-10-22 13:21 | Outpatient (CLI) | payer MEDICARE, OTHER, SELFPAY | END 2020-10-22 13:22 | disposition home or self-care (01) | LOC: WOUND 13:23 | PROVIDERS: PCP Internal Medicine; Visit Provider Thoracic Surgery (Cardiothoracic Vascular Surgery) | DX: E11.621 Type 2 diabetes mellitus with foot ulcer (principal); L97.512 Non-pressure chronic ulcer of other part of right foot with fat layer exposed | CPT/HCPCS: 11042; G0463 ==

== ENCOUNTER 2020-10-29 13:48 | Outpatient (CLI) | payer MEDICARE, OTHER, SELFPAY | END 2020-10-29 13:49 | disposition home or self-care (01) | LOC: WOUND 13:51 | PROVIDERS: PCP Internal Medicine; Visit Provider Nurse Practitioner Family | DX: Z09 Encounter for follow-up examination after completed treatment for conditions other than malignant neoplasm (principal) | CPT/HCPCS: 99212 ==

== ENCOUNTER 2021-02-12 13:08 | Outpatient (CLI) | payer MEDICARE, OTHER, SELFPAY | END 2021-02-12 13:09 | disposition home or self-care (01) | LOC: WOUND 13:09 | PROVIDERS: PCP Internal Medicine; Visit Provider Thoracic Surgery (Cardiothoracic Vascular Surgery) | DX: E11.621 Type 2 diabetes mellitus with foot ulcer (principal); L97.511 Non-pressure chronic ulcer of other part of right foot limited to breakdown of skin; Z89.421 Acquired absence of other right toe(s) | CPT/HCPCS: 97597; 99203 ==

== ENCOUNTER 2021-02-19 14:56 | Outpatient (CLI) | payer MEDICARE, OTHER, SELFPAY | END 2021-02-19 14:57 | disposition home or self-care (01) | LOC: WOUND 14:58 | PROVIDERS: PCP Internal Medicine; Visit Provider Thoracic Surgery (Cardiothoracic Vascular Surgery) | DX: Z09 Encounter for follow-up examination after completed treatment for conditions other than malignant neoplasm (principal) | CPT/HCPCS: 99212 ==

== ENCOUNTER → 2021-03-13 13:36 | Outpatient (BNVA) | payer MEDICARE, OTHER, SELFPAY | PROVIDERS: PCP Internal Medicine; Visit Provider Nurse Practitioner Family | DX: N39.0 Urinary tract infection, site not specified (principal); R33.9 Retention of urine, unspecified; N39.41 Urge incontinence | CPT/HCPCS: 81003 ==

== ENCOUNTER → 2021-07-16 12:08 | Outpatient (BNVA) | payer MEDICARE, OTHER, SELFPAY | PROVIDERS: PCP Internal Medicine; Visit Provider Internal Medicine | DX: N39.41 Urge incontinence (principal) | CPT/HCPCS: 81003 ==

== ENCOUNTER → 2021-07-31 10:22 | Outpatient (BNVA) | payer MEDICARE, OTHER, SELFPAY | PROVIDERS: PCP Internal Medicine; Visit Provider Internal Medicine Cardiovascular Disease | DX: E78.5 Hyperlipidemia, unspecified (principal); I11.0 Hypertensive heart disease with heart failure; I50.33 Acute on chronic diastolic (congestive) heart failure; I48.19 Other persistent atrial fibrillation; R06.02 Shortness of breath; R60.0 Localized edema; T84.53XA Infection and inflammatory reaction due to internal right knee prosthesis, initial encounter; E11.42 Type 2 diabetes mellitus with diabetic polyneuropathy | CPT/HCPCS: 80048; 80061; 80162; 81003; 83721; 83880; 99214 ==

== ENCOUNTER → 2021-08-29 10:53 | Outpatient (BNVA) | payer MEDICARE, OTHER, SELFPAY | PROVIDERS: PCP Internal Medicine; Visit Provider Internal Medicine Cardiovascular Disease | DX: I10 Essential (primary) hypertension (principal); R60.0 Localized edema; R78.89 Finding of other specified substances, not normally found in blood; E78.5 Hyperlipidemia, unspecified; E11.42 Type 2 diabetes mellitus with diabetic polyneuropathy; N39.0 Urinary tract infection, site not specified | CPT/HCPCS: 80048; 80162; 83880 ==

== ENCOUNTER → 2021-10-11 10:45 | Outpatient (BNVA) | payer MEDICARE, OTHER, SELFPAY | PROVIDERS: PCP Internal Medicine; Visit Provider Specialist | DX: G30.9 Alzheimer's disease, unspecified (principal); F02.80 Dementia in other diseases classified elsewhere, unspecified severity, without behavioral disturbance, psychotic disturbance, mood disturbance, and anxiety; T84.53XA Infection and inflammatory reaction due to internal right knee prosthesis, initial encounter | CPT/HCPCS: 96116; 99204; 99205 ==

== ENCOUNTER 2021-11-04 11:59 | Outpatient (CLI) | payer MEDICARE, OTHER, SELFPAY ==
--- NOTE | 2021-11-04 12:31 | USCV_ITS ---
Stella Kang Age: 80 Gender: F : 1940 Exam Date: 11/04/2021 12:51 Ordering Phys: Selam Mitchell MD ([email or web address]) Technologist: Exam Location: [facility] [place] Indication: Atrial fibrillation, HTN BP: 110 / 65 HR: 57 Rhythm: Sinus Technical Quality: Adequate MEASUREMENTS (Male / Female) Normal Values 2D ECHO LV Diastolic Diameter PLAX 3.1 cm 4.2 - 5.9 / 3.9 - 5.3 cm LV Systolic Diameter PLAX 2.2 cm IVS Diastolic Thickness 1.3 cm 0.6 - 1.0 / 0.6 - 0.9 cm IVS Systolic Thickness 1.3 cm LVPW Diastolic Thickness 1.3 cm 0.6 - 1.0 / 0.6 - 0.9 cm LVPW Systolic Thickness 1.4 cm RV Chamber Size 2.1 cm LVOT Diameter 2.0 cm LV Ejection Fraction 2D Teich 56.0 % LV Ejection Fraction MOD 2C 69.6 % LV Ejection Fraction 2C AL 70.3 % LA Diameter 3.2 cm LA Width 4.0 cm LA Height 3.9 cm RA Width 2.9 cm RA Height 3.5 cm Aorta at Sinotubular Diameter 2.6 cm IVC Diameter 1.8 cm M-MODE Aortic Annulus Diameter 3.8 cm LA Ao Ratio MM 0.9 MV E Point Septal Separation 1.1 cm DOPPLER AV Peak Velocity 124.0 cm/s LVOT Peak Velocity 87.0 cm/s AV Area Cont Eq vti 3.1 cm squared AV Area Cont Eq pk 2.2 cm squared MV Area PHT 5.0 cm squared Mitral E to A Ratio 1.1 MV E' Velocity 47.0 cm/s Mitral E to MV E' Ratio 14.4 Mitral E to LV E' Lateral Ratio 14.4 Mitral E to LV E' Septal Ratio 14.4 TR Peak Velocity 214.0 cm/s TR Peak Gradient 18.3 mmHg Right Atrial Pressure 3.0 mmHg Pulmonary Artery Systolic Pressu 21.3 mmHg PV Peak Velocity 80.0 cm/s RV Acceleration Time 0.1 s RV Ejection Time 0.3 s RV AcT/ET 0.3 FINDINGS Left Ventricle Normal left ventricular size and systolic function, EF 65 %. No regional wall motion abnormalities. Grade I/IV diastolic dysfunction (abnormal relaxation filling pattern), normal to mildly elevated filling pressures. Right Ventricle Normal right ventricular size and systolic function. Right Atrium The right atrium is normal in size. Left Atrium Mildly increased left atrial size. Mitral Valve Thickened mitral valve. Mild to moderate mitral valve regurgitation. Appears to have multiple relative jets. Moderate mitral annular calcification. Aortic Valve Thickened aortic valve. Trace aortic valve regurgitation. Tricuspid Valve Mild tricuspid valve regurgitation. Pulmonic Valve Pulmonic valve not well visualized. Pericardium Normal pericardium without effusion. Aorta Normal ascending aorta dimension. IVC Mildly dilated IVC with normal collapsibility CONCLUSIONS Normal left ventricular size and systolic function, EF 65 %. No regional wall motion abnormalities. Grade I/IV diastolic dysfunction (abnormal relaxation filling pattern), normal to mildly elevated filling pressures. Mildly increased left atrial size. Thickened mitral valve. Mild to moderate mitral valve regurgitation. Appears to have multiple relative jets. Moderate mitral annular calcification. Thickened aortic valve. Trace aortic valve regurgitation. Mild tricuspid valve regurgitation. Estimated pulmonary artery peak systolic pressure 21 mmHg. No similar previous studies are available for comparison Dr Selam Mitchell MD [facility] (Electronically Signed) Final Date: 04 November 2021 20:30 S
== END 2021-11-04 12:00 | disposition home or self-care (01) ==
PROVIDERS: PCP Internal Medicine; Visit Provider Internal Medicine Cardiovascular Disease
DX: I10 Essential (primary) hypertension (principal); I48.19 Other persistent atrial fibrillation; R09.89 Other specified symptoms and signs involving the circulatory and respiratory systems; I08.3 Combined rheumatic disorders of mitral, aortic and tricuspid valves
CPT/HCPCS: 93306

== ENCOUNTER 2021-12-27 04:33 | Emergency (ER) | payer MEDICARE, OTHER, SELFPAY ==
[2021-12-27 04:55] VITALS: BP 132/65; PULSE 55; RESP 18; TEMP 36.6; O2SAT 99; BMI 21.6
--- NOTE | 2021-12-27 05:11 | W.ED.FEMALGU ---
HPI - Female Genitourinary General: Chief complaint: Urogenital-Female Stated complaint: UTI Time Seen by Provider: 12/27/21 04:36 Source: patient Mode of arrival: ambulatory Limitations: no limitations History of Present Illness: 81-year-old female states over the last 2 days she has been having some burning with urination along with some slight hematuria. She denies any abdominal pain she denies any fever she denies any vomiting or diarrhea she states she had multiple urinary tract infections in the past and this is similar she is not on any blood thinners. Associated symptoms: Deny abdominal pain, headache(s) or nausea Review of Systems Const: Denies: fever(s), chills, body aches or change in appetite Eyes: Denies: blurry vision or eye discomfort ENMT: Denies: throat pain or dental pain Card: Denies: chest pain Resp: Denies: dyspnea GI: Denies: abdominal pain, nausea, vomiting or diarrhea : Reports: dysuria and hematuria Musc: Denies: neck pain or back pain Skin/Breast: Denies: rash Neuro: Denies: headache(s) Psych: Denies: depression Shailesh/Lymph: Denies: easy bruising All/Imm: Denies: urticaria PFSH ED PFSH: Medical History Afib 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 Cataract BILATERAL REMOVAL Chronic anticoagulation Chronic venous insufficiency DM type 2 (diabetes mellitus, type 2) Improved after weight loss not on any antihyperglycemics Incomplete emptying of bladder Lower extremity edema Muscular deconditioning Recurrent UTI Urgency incontinence Surgical History H/O shoulder surgery History of appendectomy History of hysterectomy History of knee replacement RIGHT KNEE History of tonsillectomy Family History Father , at age 80 Cancer Bleeding disorder Diabetes Mother , at age 36 complication Other Seizure Denies family history of CAD (coronary artery disease) Clotting disorder Dementia Chronic kidney disease (CKD) Suicide Anesthesia complication Lung disease Stroke Social History Smoking and tobacco status: never smoked Alcohol intake: never Adopted: No Caregiver/support person: No Lives independently: Yes Marital status: / Current occupational status: retired History of recent travel: No Physical Exam Const: COMMON NORMALS: no acute distress, patient oriented x3 and healthy appearing HENMT: COMMON NORMALS: normocephalic and atraumatic HEAD & SCALP: normocephalic and atraumatic Eye: COMMON NORMALS: Equal, round and reactive pupils present and EOMs intact bilaterally PUPIL: Yes Equal, round and reactive pupils present Neck/C-Spine: COMMON NORMALS: full ROM and supple Chest: COMMONS NORMALS: normal inspection of the chest and normal palpation of entire chest wall Resp: COMMON NORMALS: normal respiratory effort, No retractions, No use of accessory muscles and clear to auscultation bilaterally AUSCULTATION: clear to auscultation bilaterally Cardio: COMMON NORMALS: regular rate, regular rhythm and No murmurs present (Cardio) RATE: regular rate RHYTHM: regular rhythm GI: COMMON NORMALS: Normal to inspection, nondistended, normoactive bowel sounds present, Soft to palpation, non-tender and no masses PALPATION: Yes Soft to palpation Extremity: COMMON NORMALS: normal to inspection and full ROM Neuro: COMMON NORMALS: patient oriented x3, moves all extremities and no focal motor deficits Psych: COMMON NORMALS: mental status grossly normal, Normal thought process present and cooperative THOUGHT PROCESS: Normal thought process present Skin: COMMON NORMALS: no rashes or lesions noted and no wounds GENERAL SKIN EXAM: no rashes or lesions noted Course Vital Signs: Vital signs: Vital Signs Temperature 97.9 F 12/27/21 04:55 Pulse Rate 55 L 12/27/21 04:55 Respiratory Rate 18 12/27/21 04:55 Blood Pressure 132/65 12/27/21 04:55 Pulse Oximetry 99 12/27/21 04:55 Oxygen Delivery Me thod 12/27/21 04:55 MDM - Female Medical Decision Making Patient presents with dysuria she states that she had hematuria at home and her urinalysis here showed no hematuria but she does have a urinary tract infection we will treat her with Keflex she is stable for discharge she is to follow-up with PCP and return if worsening she understands agrees plan. Lab Data Laboratory Results Urine Color [place] (Yellow) 12/27/21 05:08 Urine Appearance Clear (CLEAR) 12/27/21 05:08 Urine pH 5 (5-7) 12/27/21 05:08 Ur Specific [place] 1.010 (1.005-1.030) 12/27/21 05:08 Urine Protein Trace (Negative) 12/27/21 05:08 Urine Glucose (UA) Norm (Normal) 12/27/21 05:08 Urine Ketones Negative (Negative) 12/27/21 05:08 Urine Blood Neg (Negative) 12/27/21 05:08 Urine Nitrate Positive (Negative) H 12/27/21 05:08 Urine Bilirubin 1+ (Negative) H 12/27/21 05:08 Urine Urobilinogen 1 mg/dL (Negative) H 12/27/21 05:08 Ur Leukocyte Esterase Negative (Negative) 12/27/21 05:08 Urine RBC None /hpf (0-2) 12/27/21 05:08 Urine WBC 0-4 /hpf (0-5) H 12/27/21 05:08 Ur Squamous Epith Cells 0-4 /hpf (0-5) H 12/27/21 05:08 Amorphous Sediment Not Reportable 12/27/21 05:08 Urine Bacteria 3+ /hpf (NONE) H 12/27/21 05:08 Ur Oval Fat Bodies 1+ /hpf 12/27/21 05:08 Discharge Plan Discharge Patient Disposition: Home Clinical Impression: Urinary tract infection Qualifiers: Urinary tract infection type: acute cystitis Hematuria presence: with hematuria Qualified Code(s): N30.01 - Acute cystitis with hematuria Condition: Stable Prescriptions: New cephalexin 500 mg capsule 500 mg PO TID 7 Days Qty: 21 0RF No Action doxazosin 1 mg tablet 1 mg PO DAILY ascorbic acid (vitamin C) 250 mg tablet 250 mg PO DAILY calcium carb-vitamin D3-vit K2 500 mg calcium- 200 unit-90 mcg tablet PO acetaminophen [Tylenol] 325 mg capsule 325 mg PO QID PRN (Reason: Pain) magnesium 250 mg tablet 250 mg PO DAILY cetirizine 10 mg capsule 10 mg PO DAILY PRN (Reason: Allergy Symptoms) doxycycline hyclate 100 mg tablet 100 mg PO BID Eliquis 5 mg tablet 5 mg PO BID Qty: 180 3RF alprazolam 0.25 mg tablet 0.25 mg PO TID PRN metoprolol succinate 25 mg tablet extended release 24 hr 25 mg PO DAILY Qty: 90 3RF atorvastatin 10 mg tablet 10 mg PO BEDTIME Qty: 90 3RF pantoprazole [Protonix] 40 mg tablet,delayed release (DR/EC) 40 mg PO BID Qty: 180 3RF methenamine hippurate 1 gram tablet See Rx Instructions .ROUTE .COMPLEX Qty: 180 3RF Dose Instruction: TAKE 1 TABLET (1 GRAM) TWICE A DAY. TAKE 1000 MG OF VITAMIN C WITH EACH DOSE OF METHENAMINE Rx Instructions: TAKE 1 TABLET (1 GRAM) TWICE A DAY. TAKE 1000 MG OF VITAMIN C WITH EACH DOSE OF METHENAMINE furosemide 40 mg tablet 40 mg PO .qod Qty: 45 3RF digoxin 125 mcg (0.125 mg) tablet 125 mcg PO .qod Qty: 45 3RF Rx Instructions: Take 1 tab (125mcg) every other day - no longer taking 0.25mg dose galantamine 4 mg tablet See Rx Instructions .ROUTE .COMPLEX Qty: 180 0RF Dose Instruction: TAKE 1 TABLET BY MOUTH TWICE DAILY WITH THE MORNING AND EVENING MEAL Rx Instructions: TAKE 1 TABLET BY MOUTH TWICE DAILY WITH THE MORNING AND EVENING MEAL lisinopril 10 mg tablet 10 mg PO DAILY Qty: 90 3RF celecoxib [Celebrex] 200 mg capsule 200 mg PO BID Qty: 60 6RF Rx Instructions: Pt has NSAIDs listed on her allergy list, but can not remember ever having an issue with them. Discharge Orders: Discharge ED (Routine); Ordered 12/27/21 Ordered By: Wood Rosenberg Referrals: Shahriar Lee MD [Primary Care Provider] - 1-3 days Discharge Diet: Advance as tolerated Discharge Activity: Resume usual activity Patient Instructions: Urinary Tract Infection in Women (ED) Coding Level of Care Code ED Client Success Specialist for Inez Fwd Exam Comprehensive
[2021-12-27 05:32] LABS: Blood Urine Neg (Negative); Glucose Urine UA Norm (Normal); Ketones Urine Negative (Negative); Protein Urine Trace (Negative); Urine Appearance Clear (CLEAR); Urine Color Orange (Yellow); pH Urine 5 (5-7)
[2021-12-27 05:34] LABS: Bilirubin Urine 1+ (Negative); Leukocyte Esterase Urine Negative (Negative); Nitrate Urine Positive (Negative); Urobilinogen Urine 1 mg/dL (Negative)
[2021-12-27 05:35] LABS: Add Urine Microscopic? YES
[2021-12-27 05:36] LABS: Bacteria Urine 3+ /hpf; Squamous Epithelial Cell Urine 0-4 /hpf (0-5); WBC Urine 0-4 /hpf (0-5)
[2021-12-27 05:37] LABS: Add Urine Culture? Yes; Oval Fat Bodies Urine 1+ /hpf
[2021-12-27] MEDS: cephALEXin 500 mg Capsule PO (05:54)
[2021-12-27 05:55] VITALS: BP 132/65
== END 2021-12-27 05:57 | disposition home or self-care (01) ==
PROVIDERS: Emergency Provider Emergency Medicine; PCP Internal Medicine
DX: N30.01 Acute cystitis with hematuria (principal); Z79.01 Long term (current) use of anticoagulants; E11.9 Type 2 diabetes mellitus without complications; Z87.440 Personal history of urinary (tract) infections
CPT/HCPCS: 81001; 87086; 99283

== ENCOUNTER → 2022-01-15 14:50 | Outpatient (BNVA) | payer MEDICARE, OTHER, SELFPAY | PROVIDERS: PCP Internal Medicine; Visit Provider Specialist | DX: G30.9 Alzheimer's disease, unspecified (principal); F02.80 Dementia in other diseases classified elsewhere, unspecified severity, without behavioral disturbance, psychotic disturbance, mood disturbance, and anxiety; L03.115 Cellulitis of right lower limb; T84.53XA Infection and inflammatory reaction due to internal right knee prosthesis, initial encounter; Z96.651 Presence of right artificial knee joint | CPT/HCPCS: 99214 ==

== ENCOUNTER → 2022-01-16 13:19 | Outpatient (BNVA) | payer MEDICARE, OTHER, SELFPAY | PROVIDERS: PCP Internal Medicine; Visit Provider Nurse Practitioner Family | DX: I10 Essential (primary) hypertension (principal); I48.19 Other persistent atrial fibrillation; Z79.01 Long term (current) use of anticoagulants | CPT/HCPCS: 99214 ==

== ENCOUNTER → 2022-01-28 16:33 | Outpatient (BNVA) | payer MEDICARE, OTHER, SELFPAY | PROVIDERS: PCP Internal Medicine; Visit Provider Urology | DX: N39.0 Urinary tract infection, site not specified (principal); R31.0 Gross hematuria; R33.9 Retention of urine, unspecified | CPT/HCPCS: 51798; 99213 ==

== ENCOUNTER → 2022-02-03 09:57 | Outpatient (BNVA) | payer MEDICARE, OTHER, SELFPAY | PROVIDERS: PCP Internal Medicine; Visit Provider Urology | DX: N39.0 Urinary tract infection, site not specified (principal); R33.9 Retention of urine, unspecified; R31.0 Gross hematuria | CPT/HCPCS: 81003 ==

== ENCOUNTER → 2022-04-21 14:34 | Outpatient (BNVA) | payer MEDICARE, OTHER, SELFPAY | PROVIDERS: PCP Internal Medicine; Visit Provider Specialist | DX: G30.9 Alzheimer's disease, unspecified (principal); F02.80 Dementia in other diseases classified elsewhere, unspecified severity, without behavioral disturbance, psychotic disturbance, mood disturbance, and anxiety | CPT/HCPCS: 99213 ==

== ENCOUNTER 2022-04-23 06:00 | Outpatient (RCR) | payer MEDICARE, OTHER, SELFPAY | END 2022-05-10 23:59 | disposition home or self-care (01) | LOC: SPT 06:00 | PROVIDERS: PCP Internal Medicine; Visit Provider Nurse Practitioner Acute Care | DX: I89.0 Lymphedema, not elsewhere classified (principal) | CPT/HCPCS: 29581; 97140; 97161 ==

== ENCOUNTER 2022-05-11 06:00 | Outpatient (RCR) | payer MEDICARE, OTHER, SELFPAY | END 2022-05-20 23:59 | disposition home or self-care (01) | LOC: SPT 06:00 | PROVIDERS: PCP Internal Medicine; Visit Provider Nurse Practitioner Acute Care | DX: I89.0 Lymphedema, not elsewhere classified (principal) | CPT/HCPCS: 97140 ==

== ENCOUNTER → 2022-05-23 13:08 | Outpatient (BNVA) | payer MEDICARE, OTHER, SELFPAY | PROVIDERS: PCP Internal Medicine; Visit Provider Thoracic Surgery (Cardiothoracic Vascular Surgery) | DX: T81.31XD Disruption of external operation (surgical) wound, not elsewhere classified, subsequent encounter (principal); Y83.8 Other surgical procedures as the cause of abnormal reaction of the patient, or of later complication, without mention of misadventure at the time of the procedure | CPT/HCPCS: 11042; 87070; 87176; 87205; 99212; A6212 ==

== ENCOUNTER → 2022-05-30 11:39 | Outpatient (BNVA) | payer MEDICARE, OTHER, SELFPAY | PROVIDERS: PCP Internal Medicine; Visit Provider Thoracic Surgery (Cardiothoracic Vascular Surgery) | DX: T81.31XD Disruption of external operation (surgical) wound, not elsewhere classified, subsequent encounter (principal); Y83.8 Other surgical procedures as the cause of abnormal reaction of the patient, or of later complication, without mention of misadventure at the time of the procedure | CPT/HCPCS: 97597; A6212 ==

== ENCOUNTER 2022-06-06 07:38 | Outpatient (CLI) | payer MEDICARE, OTHER, SELFPAY ==
--- NOTE | 2022-06-06 07:30 | CT_ITS ---
WS: [id number] CT RIGHT KNEE, WITH CONTRAST TECHNIQUE: Contrast-enhanced CT of the RIGHT knee with coronal and sagittal reformatted images. CLINI EMILIANO INFORMATION: T81.31XD - Disruption of external operation (surgical) wo... COMPARISON: May 27, 2020 DLP: 303.[address] scans at [facility] use at least one of these dose optimization techniques: automated e xposure control; mA and/or kV adjustment per patient size (includes targeted exams where dose is matc hed to clinical indication); or iterative reconstruction. FINDINGS: Exam limited due to beam hardening artifact from RIGHT TKA. Vascular calcification. Patellar resurfac ing. Small joint effusion with chronic appearing synovial thickening.Dense vascular calcification. Mo derate to severe segmental narrowing of the popliteal artery with high-grade narrowing above the knee . Streak artifact degrades images in the popliteal fossa. Dense vascular calcification at the tibiope roneal trunk. Mild soft tissue edema. Osteopenia. Hardware appears intact. No evidence of hardware loosening. Demineralization with lucency involving distal femur similar in appearance to 2020 likely due to osteopenia/osteoporosis. No cortical destruction to indicate osteomyelitis. Chronic appearing synovial thickening with small joint effusion. Joint effusion has improved since 2020 CT/CT knee RT w con [id number] IMPRESSION: Images limited due to beam hardening artifact from RIGHT TKA. 1. No evidence of drainable abscess or fluid collection. 2. Postoperative changes RIGHT TKA with patellar resurfacing. Small joint effu feliciano with chronic synovial thickening. 3. No evidence of osteomyelitis considering beam hardening artifact which limi ts examination. 4. No evidence of hardware loosening. 5. Dense vascular calcification with high-grade severe narrowing above the kne e. Distal popliteal artery appears patent with dense calcification tibioperonea l trunk. 6. Mottled lucency with demineralization in the distal femur likely due to ost eopenia/osteoporosis similar in appearance to 202.
[2022-06-06 08:01] LABS: Blood Urea Nitrogen 30 mg/dL (8-23)
[2022-06-06] MEDS: iohexol 350 mg/mL 500 mL Btl (per mL) IV (08:21)
== END 2022-06-06 07:39 | disposition home or self-care (01) ==
LOC: RAD 07:39
PROVIDERS: PCP Family Medicine; Visit Provider Thoracic Surgery (Cardiothoracic Vascular Surgery)
DX: T81.31XD Disruption of external operation (surgical) wound, not elsewhere classified, subsequent encounter (principal); X58.XXXD Exposure to other specified factors, subsequent encounter
CPT/HCPCS: 11042; 73701; 82565; 84520; 87070; 87176; 87205; A6212; A6252; Q9967

== ENCOUNTER → 2022-06-13 11:30 | Outpatient (BNVA) | payer MEDICARE, OTHER, SELFPAY | PROVIDERS: PCP Family Medicine; Visit Provider Thoracic Surgery (Cardiothoracic Vascular Surgery) | DX: I96 Gangrene, not elsewhere classified (principal); T81.31XD Disruption of external operation (surgical) wound, not elsewhere classified, subsequent encounter; Y83.8 Other surgical procedures as the cause of abnormal reaction of the patient, or of later complication, without mention of misadventure at the time of the procedure | CPT/HCPCS: 97597 ==

== ENCOUNTER 2022-06-16 07:44 | Inpatient (IN) | payer MEDICARE, OTHER, SELFPAY ==
[2022-06-16] VITALS (16 sets, daily range): BP systolic 156–191; BP diastolic 64–97; PULSE 51–80; RESP 14–17; TEMP 36.6–36.8; O2SAT 94–99; BMI 21.4; BMI 22.8
[2022-06-16 08:31] LABS: Basophils % 0.4 %; Eosinophils # 0.1 10^3/uL (0.0-0.8); Eosinophils % 1.5 %; Hematocrit 30.1 % (37.0-47.0); Hemoglobin 9.5 g/dL (11.5-15.3); Lymphocytes # 0.8 10^3/uL (0.8-4.8); Lymphocytes % 10.4 %; Mean Corpuscular HGB Conc 31.6 g/dL (30.0-36.0); Mean Corpuscular Hemoglobin 29.1 pg (28.0-34.0); Mean Platelet Volume 9.3 fL (7.4-10.4); Monocytes # 0.4 10^3/uL (0.2-0.9); Monocytes % 5.9 %; Neutrophils % 81.1 %; Nucleated Red Blood Cells % 0 %; Platelet Count 263 10^3/cmm (130-400); Red Blood Count 3.27 10^6/uL (4.1-5.3); Red Cell Distribution Width 13.6 % (12.1-15.1); White Blood Count 7.4 10^3/uL (4.0-10.0)
[2022-06-16 08:43] LABS: Alanine Aminotransferase 7 U/L (0-33); Albumin Level 3.6 g/dL (3.5-5.2); Alkaline Phosphatase 73 U/L (35-105); Anion Gap 12.6 (5-19); Aspartate Amino Transferase 10 U/L (0-32); Blood Urea Nitrogen 27 mg/dL (8-23); Calcium 8.8 mg/dL (8.5-10.5); Carbon Dioxide 27 mmol/L (22-29); Chloride 103 mmol/L (98-107); Creatinine Clr Calc Pharmacy 51.0046; Globulin 2.4 g/dL (1.3-4.6); Glucose 105 mg/dL (65-115); Osmolality Calculated 291 mOsm/kg (285-295); Potassium 4.6 mmol/L (3.5-5.1); Sodium 138 mmol/L (136-145); Total Bilirubin 0.4 mg/dL (0.15-1.2)
[2022-06-16 09:04] LABS: Digoxin 0.6 ng/mL (0.6-1.2)
--- NOTE | 2022-06-16 09:35 | CT_ITS ---
WS: [id number] CT ABDOMEN PELVIS TECHNIQUE: Contrast-enhanced CT of the abdomen and pelvis with coronal and sagittal reformatted image s. CLINICAL INFORMATION: abd pain COMPARISON: None. DLP: 399.[address] scans at [facility] [place] use at least one of these dose optimization techniques: automated e xposure control; mA and/or kV adjustment per patient size (includes targeted exams where dose is matc hed to clinical indication); or iterative reconstruction. FINDINGS: Bibasilar atelectasis. Trace pleural fluid lung bases. Diffuse fatty infiltration liver. Normal mitchell l vein and splenic vein. Mild intrahepatic biliary duct dilatation. Common bile duct tapers normally at the pancreatic head. Cholelithiasis. Splenic artery calcification. RIGHT adrenal adenoma measuring 11 mm. LEFT adrenal gland is normal. Normal renal parenchymal enhance ment. No hydronephrosis. Small renal cysts. 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 Peripheral enhancing RIGHT renal cortical lesion measuring 10 mm. No hydronephrosis in either kidney. Celiac and SMA are patent. Normal caliber abdominal aorta. Urine distended bladder. Sigmoid diverticulosis. No definite evidence of acute diverticulitis. Moderate dif fuse pancolonic fecal retention. Lumbar scoliosis. CT/CT abdomen pelvis w con* [id number] IMPRESSION: 1. Sigmoid diverticulosis. No definite evidence of acute diverticulitis. 2. Urine distended bladder. 3. Bibasilar atelectasis with trace pleural fluid. 4. Moderate pancolonic constipation. 5. Cholelithiasis with mild intrahepatic biliary duct dilatation. 6. Diffuse fatty infiltration liver. 7. Peripherally enhancing RIGHT renal cortical lesion measuring 10 mm not defi nitely cystic. Recommend 6 month follow-up CT abdomen pelvis. 8. No other acute findings.
--- NOTE | 2022-06-16 09:37 | ED_ITS ---
HPI - GI Bleed General: Chief complaint: GI Bleed Stated complaint: blood in stool Time Seen by Provider: 06/16/22 08:38 Source: patient Mode of arrival: ambulatory History of Present Illness: 81-year-old female who presents to the emergency room with complaints of blood in her stool she had 2 bloody bowel movements overnight bright red blood. She not had any abdominal pain she describes feeling a gurgling sensation in her abdomen and then suddenly hydrated these 2 sequential large bowel movements. No fever sweats chills no known history of any colon cancer no previous colonoscopy. She is on apixaban for atrial fibrillation as well as digoxin. MD complaint: gross hematochezia Onset (ago): hour(s) Pain Consistency: intermittent Relieving factors: none Exacerbating factors: none Associated symptoms: Denies abdominal pain, chills, easy bruising, epistaxis, fever(s), headache(s), malaise, nausea, other bleeding, poor appetite, rash, syncope, vomiting or weakness Treatments Prior to Arrival: none Review of Systems Const: Denies: fever(s), chills, fatigue or malaise ENMT: Denies: throat pain, nasal congestion, nasal obstruction or epistaxis Card: Denies: chest pain, palpitations, irregular heart rhythm, edema, swelling of feet/ankles or syncope Resp: Denies: dyspnea, productive cough or non-productive cough GI: Denies: abdominal pain, nausea or vomiting : Denies: flank pain, difficulty voiding, dysuria, urinary frequency or urinary urgency Musc: Denies: neck pain or back pain Skin/Breast: Denies: rash Neuro: Denies: headache(s) Shailesh/Lymph: Denies: easy bruising PFS ED PFSH: Medical History (Updated 06/16/22 @ 21:10 by Carolina Pimentel MD) Afib on digoxin, metoprolol, eliquis, follows with Dr Mitchell 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 Chronic anticoagulation eliquis, secondary to atrial fibrillation 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, treated with chronic doxycycline, followed by Dr Catina CHÁVEZ in [place], and referred to specialist in [facility] Chronic venous insufficiency Diabetic peripheral neuropathy associated with type 2 diabetes mellitus diabetes resolved with weight loss, neuropathy persisted DM type 2 (diabetes mellitus, type 2) Improved after weight loss not on any antihyperglycemics Dyslipidemia Essential hypertension Incomplete emptying of bladder follows with Saez Primary osteoarthritis of left knee Recurrent UTI Urgency incontinence Valgus deformity, not elsewhere classified, left knee Surgical History (Updated 06/16/22 @ 16:38 by Carolina Pimentel MD) Amputated toe of right foot H/O shoulder surgery History of appendectomy History of bilateral cataract extraction History of hysterectomy History of knee replacement right knee, with subsequent revision and later infection in replaced joint, treated with chronic doxycycline, followed by ID History of tonsillectomy Family History Father , at age 80 Cancer Bleeding disorder Diabetes Mother , at age 36 complication Other Seizure Denies family history of CAD (coronary artery disease) Clotting disorder Dementia Chronic kidney disease (CKD) Suicide Anesthesia complication Lung disease Stroke Social History (Updated 06/16/22 @ 16:11 by Carolina Pimentel MD) Smoking and tobacco status: never smoked Second hand smoke exposure: No Alcohol intake: current Alcohol intake frequency: holidays/special occasions only Alcohol type: wine Adopted: No Caregiver/support person: No Lives independently: Yes Marital status: / Current occupational status: retired Physical Exam Const: COMMON NORMALS: no acute distress GENERAL APPEARANCE: cooperative and comfortable ORIENTATION/CONSCIOUSNESS: Yes awake, Yes oriented to person, Yes oriented to place and Yes oriented to time HENMT: COMMON NORMALS: normocephalic, atraumatic and hearing grossly normal bilaterally HEAD & SCALP: normocephalic and atraumatic Resp: COMMON NORMALS: normal respiratory effort, No retractions, No use of accessory muscles and clear to auscultation bilaterally AUSCULTATION: clear to auscultation bilaterally Cardio: COMMON NORMALS: regular rate, regular rhythm and No murmurs present (Cardio) RATE: regular rate RHYTHM: regular rhythm GI: COMMON NORMALS: Soft to palpation and No hepatosplenomegaly present AUSCULTATION: Yes normoactive bowel sounds PALPATION: Yes Soft to palpation, No Tenderness to palpation present (GI), No Guarding due to palpation present (GI) and Yes No hepatosplenomegaly present Extremity: COMMON NORMALS: normal to inspection, capillary refill normal, no clubbing, cyanosis or edema, no calf tenderness and no pedal edema Neuro: SENSORIUM/ORIENTATION: Yes oriented to person, Yes oriented to place and Yes oriented to time Skin: COMMON NORMALS: no rashes or lesions noted GENERAL SKIN EXAM: no rashes or lesions noted Course Vital Signs: Vital signs: Vital Signs Temperature 99.0 F 06/18/22 13:50 Pulse Rate 70 06/18/22 13:50 Respiratory Rate 18 06/18/22 13:50 Blood Pressure 132/62 06/18/22 13:50 Pulse Oximetry 98 06/18/22 13:50 Oxygen Delivery Me thod 06/18/22 12:00 MDM - GI Bleed Medical Decision Making reviewed labs and imaging. There is no significant finding on the imaging. Her hemoglobin is actually slightly above where she has been in the past about generally average. We are preparing to discharge patient home with close follow-up with a repeat hemoglobin prophylactic treatment for diverticulitis and holding her Eliquis. Before she was discharged she had a large bowel movement and bright red blood or discharge was put on hold and we waited 1 hour and rechecked her hemoglobin her second hemoglobin was down to 8.2 from her previous of 9.5. Given this change will now place patient on observation keep her n.p.o. Discussed with hospitalist orders written Medical Records I reviewed the patient's medical records. Lab Data I reviewed the patient's lab results. 06/16/22 08:19 06/16/22 08:19 Radiology Impressions Abdomen/Pelvis CT 06/16/22 09:35 IMPRESSION: 1. Sigmoid diverticulosis. No definite evidence of acute diverticulitis. 2. Urine distended bladder. 3. Bibasilar atelectasis with trace pleural fluid. 4. Moderate pancolonic constipation. 5. Cholelithiasis with mild intrahepatic biliary duct dilatation. 6. Diffuse fatty infiltration liver. 7. Peripherally enhancing RIGHT renal cortical lesion measuring 10 mm not definitely cystic. Recommend 6 month follow-up CT abdomen pelvis. 8. No other acute findings. Laboratory Results WBC 7.4 10^3/uL (4.0-10.0) 06/16/22 08:19 RBC 3.27 10^6/uL (4.1-5.3) L 06/16/22 08:19 Hgb 8.2 g/dL (11.5-15.3) L 06/16/22 13:15 Hct 30.1 % (37.0-47.0) L 06/16/22 08:19 MCV 92.0 fl (81-99) 06/16/22 08:19 MCH 29.1 pg (28.0-34.0) 06/16/22 08:19 MCHC 31.6 g/dL (30.0-36.0) 06/16/22 08:19 RDW 13.6 % (12.1-15.1) 06/16/22 08:19 Plt Count 263 10^3/cmm (130-400) 06/16/22 08:19 MPV 9.3 fL (7.4-10.4) 06/16/22 08:19 Neut % (Auto) 81.1 % 06/16/22 08:19 Lymph % (Auto) 10.4 % 06/16/22 08:19 Stephens % (Auto) 5.9 % 06/16/22 08:19 Eos % (Auto) 1.5 % 06/16/22 08:19 Baso % (Auto) 0.4 % 06/16/22 08:19 Neut # (Auto) 6.00 10^3/uL (1.8-7.7) 06/16/22 08:19 Lymph # (Auto) 0.8 10^3/uL (0.8-4.8) 06/16/22 08:19 Stephens # (Auto) 0.4 10^3/uL (0.2-0.9) 06/16/22 08:19 Eos # (Auto) 0.1 10^3/uL (0.0-0.8) 06/16/22 08:19 Baso # (Auto) 0.0 10^3/uL (0.0-0.1) 06/16/22 08:19 Nucleated RBC % (auto) 0 % 06/16/22 08:19 Nucleated RBCs # 0.0 /100WBC 06/16/22 08:19 Sodium 138 mmol/L (136-145) 06/16/22 08:19 Potassium 4.6 mmol/L (3.5-5.1) 06/16/22 08:19 Chloride 103 mmol/L (98-107) 06/16/22 08:19 Carbon Dioxide 27 mmol/L (22-29) 06/16/22 08:19 Anion Gap 12.6 (5-19) 06/16/22 08:19 BUN 27 mg/dL (8-23) H 06/16/22 08:19 Creatinine 0.7 mg/dL (0.5-0.9) 06/16/22 08:19 GFR Calculation Not Reportable 06/16/22 08:19 Glucose 105 mg/dL (65-115) 06/16/22 08:19 Calculated Osmolality 291 mOsm/kg (285-295) 06/16/22 08:19 Calcium 8.8 mg/dL (8.5-10.5) 06/16/22 08:19 Total Bilirubin 0.4 mg/dL (0.15-1.2) 06/16/22 08:19 AST 10 U/L (0-32) 06/16/22 08:19 ALT 7 U/L (0-33) 06/16/22 08:19 Alkaline Phosphatase 73 U/L (35-105) 06/16/22 08:19 Total Protein 6.0 g/dL (6.6-8.7) L 06/16/22 08:19 Albumin 3.6 g/dL (3.5-5.2) 06/16/22 08:19 Globulin 2.4 g/dL (1.3-4.6) 06/16/22 08:19 Digoxin 0.6 ng/mL (0.6-1.2) 06/16/22 08:19 Discharge Plan Discharge Patient Disposition: Placed in Observation Admit Provider: Carolina Pimentel Clinical Impression: Rectal bleeding, Diverticulosis Discharge Diet: Usual diet Discharge Activity: Resume usual activity Coding Level of Care Code ED Set Up Mechanic Automatic Line for Inez Michelle
[2022-06-16] MEDS: iohexol 350 mg/mL 500 mL Btl (per mL) IV (10:41)
[2022-06-16 13:24] LABS: Hemoglobin 8.2 g/dL (11.5-15.3)
--- NOTE | 2022-06-16 16:10 | PM.HP ---
Providers/Chief Complaint Admitting Physician: Carolina Pimentel MD Primary Care Provider: Rob Grant MD Chief Complaint: blood in stool History of Present Illness Stella Kang is a 81 year old female who presented to the emergency room with chief complaint of 2 episodes of bright red blood in her stools overnight. She reports being constipated the day prior but otherwise bowels have been normal for her lately, no change in caliber or color. Overnight she noted what seemed to be increased bowel gas. This was followed by 2 episodes of loose bright red bloody stools. She denies any abdominal pain or rectal pain. No history of chronic straining or known problems with bleeding hemorrhoids. She has never had anything like this before. She has never had a colonoscopy. No recent nausea or vomiting. No significant reflux symptoms. No fevers. She is on chronic anticoagulation with Eliquis due to a history of atrial fibrillation. Work-up in the emergency room revealed a hemoglobin of 9.5. CT of the abdomen and pelvis showed some sigmoid diverticulosis but no definite evidence of diverticulitis. Pancolonic constipation was also noted. Previous hemoglobin values from more than 2 years ago ranged 8.8-10.8. Initial plan had been for empiric treatment for possible diverticulitis, holding of Eliquis and outpatient follow-up. While in the emergency room however and before she could be discharged, she had another large bright red bloody bowel movement. She was monitored. Repeat hemoglobin an hour later was down to 8.2. Given drop in hemoglobin with persistent bright red blood per rectum, she is being admitted for further evaluation and treatment. History is obtained from Mrs. Kang. She does have a history of some mild dementia but able to state when she does not remember something and is consistent in her answers regarding prior history. Some details she recalls when prompted. Previous records have also been reviewed including wound care clinic notes, neurology notes and office visit with Dr. Grant in April. Patient reports that for the last 2 to 3 weeks she has had increasing swelling in both of her lower extremities. She takes Lasix every other day. Denies recent change in dosing. She tries to keep her legs elevated when she can. She was referred to lymphedema clinic but does not recall if that visit took place. Last echocardiogram in October of last year showed an ejection fraction of 65% with grade 1/4 diastolic dysfunction. Beyond lower extremity edema she does not have issues with orthopnea, PND or significant dyspnea on exertion. No reports of any dizziness or gait instability lately although she will use a cane when she leaves the house. Patient follows with wound care clinic for chronic wound to her right lower extremity at the knee. Review of records indicates that this wound is longstanding and potentially related to joint infection, prosthetic knee. She is chronically on doxycycline for this. She has been referred to specialist in [place] but has not yet had an appointment. From what she knows, she needs repeat knee surgery but is considered high risk. She has been following with infectious disease in [place] but would ideally like to get all of her providers local. In addition to the wound at the right knee she has had what sounds like recent scraping of a callus on her right great toe and has an associated wound there. She keeps a Band-Aid over it. Review of Systems General: Reports: Other (Review of systems as per HPI and as noted below) Card: Denies: chest pain GI: Denies: heartburn, early satiety, bloating, GI cramping or melena : Reports: urinary incontinence; Denies: dysuria or hematuria Neuro: Denies: frequent falls Medications/Allergies Home Medications Medication Instructions Recorded Confirmed Last Taken Type acetaminophen 325 mg capsule 325 mg PO QID PRN Pain 06/14/19 06/16/22 12/25/19 History (Tylenol) magnesium 250 mg tablet 250 mg PO DAILY 06/14/19 06/16/22 06/15/22 History ascorbic acid (vitamin C) 250 mg 250 mg PO DAILY 12/26/20 06/16/22 06/15/22 History tablet calcium carbonate 500 mg-vitamin 1 tab PO DAILY 12/26/20 06/16/22 06/15/22 History D3 200 unit-vitamin K2 90 mcg tablet celecoxib 200 mg capsule (Celebrex) 200 mg PO BID #60 caps 12/25/21 06/16/22 06/15/22 Rx metoprolol succinate 25 mg 25 mg PO DAILY #90 tabs 01/27/22 06/16/22 06/15/22 Rx tablet,extended release 24 hr lisinopril 10 mg tablet 10 mg PO DAILY #90 tabs 03/05/22 06/16/22 06/15/22 Rx atorvastatin 10 mg tablet 10 mg PO BEDTIME #90 tabs 04/08/22 06/16/22 06/15/22 Rx hydroxyzine HCl 10 mg tablet 10 mg PO BID PRN itching #14 tabs 04/18/22 06/16/22 Unknown Rx loratadine 10 mg tablet 10 mg PO DAILY #14 tabs 04/18/22 06/16/22 06/15/22 Rx galantamine 8 mg tablet See Rx Instructions .Route 04/21/22 06/16/22 06/15/22 Rx .COMPLEX #180 tabs methenamine hippurate 1 gram tablet See Rx Instructions .Route 06/09/22 06/16/22 06/15/22 Rx .COMPLEX #180 tabs apixaban 5 mg tablet (Eliquis) 5 mg PO BID 06/16/22 06/16/22 06/15/22 History ascorbic acid (vitamin C) 1,000 mg 1,000 mg PO BID 06/16/22 06/16/22 06/15/22 History tablet (Vitamin C) digoxin 125 mcg (0.125 mg) tablet 125 mcg PO EVERY OTHER DAY 06/16/22 06/16/22 06/15/22 History doxycycline hyclate 100 mg tablet 100 mg PO BID 06/16/22 06/16/22 06/15/22 History furosemide 40 mg tablet 40 mg PO EVERY OTHER DAY 06/16/22 06/16/22 06/15/22 History Allergies Allergy/AdvReac Type Severity Reaction Status Date / Time ezetimibe [From Zetia] Allergy unknown Verified 04/21/22 14:55 fenofibrate Allergy unknown Verified 04/21/22 14:55 lovastatin Allergy unknown Verified 04/21/22 14:55 NSAIDS (Non-Steroidal Allergy unknown Verified 04/21/22 14:55 Anti-Inflamma simvastatin [From Vytorin] Allergy unknown Verified 04/21/22 14:55 PFSH Acute PFSH: Medical History (Updated 06/16/22 @ 21:10 by Carolina Pimentel MD) Afib on digoxin, metoprolol, eliquis, follows with Dr Mitchell Alzheimer disease follows with [facility] esophagus Chronic anticoagulation eliquis, secondary to atrial fibrillation 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 Chronic venous insufficiency Diabetic peripheral neuropathy associated with type 2 diabetes mellitus diabetes resolved with weight loss, neuropathy persisted DM type 2 (diabetes mellitus, type 2) Improved after weight loss not on any antihyperglycemics Dyslipidemia Essential hypertension Incomplete emptying of bladder follows with Saez Primary osteoarthritis of left knee Recurrent UTI Urgency incontinence Valgus deformity, not elsewhere classified, left knee Surgical History (Updated 06/16/22 @ 16:38 by Carolina Pimentel MD) Amputated toe of right foot H/O shoulder surgery History of appendectomy History of bilateral cataract extraction History of hysterectomy History of knee replacement right knee, with subsequent revision and later infection in replaced joint, treated with chronic doxycycline, followed by ID History of tonsillectomy Family History Father , at age 80 Cancer Bleeding disorder Diabetes Mother , at age 36 complication Other Seizure Denies family history of CAD (coronary artery disease) Clotting disorder Dementia Chronic kidney disease (CKD) Suicide Anesthesia complication Lung disease Stroke Social History (Updated 06/16/22 @ 16:11 by Carolina Pimentel MD) Smoking and tobacco status: never smoked Second hand smoke exposure: No Alcohol intake: current Alcohol intake frequency: holidays/special occasions only Alcohol type: wine Substance/Drug Use: never Adopted: No Caregiver/support person: No Lives independently: Yes Marital status: / Current occupational status: retired Vitals/I&O/Wt Last Vital Signs Temp 97.8 F 06/16/22 08:03 Pulse 64 06/16/22 14:00 Resp 16 06/16/22 13:07 BP 158/85 06/16/22 13:30 Pulse Ox 98 06/16/22 14:00 O2 Del Method 06/16/22 14:00 Weight last 48 hrs Weight 58.513 kg Physical Exam Narrative: Patient is awake and alert, oriented to person place and situation, able to provide good amount of information regarding history. Normocephalic, moist and pink mucous membranes. Short neck with some limitation in range of motion noted when turning side to side but no pain. Lungs are clear to auscultation without any rales rhonchi or wheezes. Cardiovascular exam reveals an irregularly irregular rhythm, no murmurs. Abdomen is soft, nontender, positive bowel sounds. 3+ pitting edema noted to the knees bilaterally. No calf tenderness. Dressing removed from the approximately 1 cm diameter wound in the medial right knee revealing no odor, mucoid like drainage without surrounding erythema. Bottom of the right great toe with thickened, dark brown discolored skin with some small areas of ecchymotic like erythema, though no erythematous streaks extending from this. No drainage noted. Some thenar wasting is noted bilaterally. Moves all extremities. Gait not assessed. Data 06/16/22 13:15 06/16/22 08:19 Other Labs: Radiology Impressions Abdomen/Pelvis CT 06/16/22 09:35 IMPRESSION: 1. Sigmoid diverticulosis. No definite evidence of acute diverticulitis. 2. Urine distended bladder. 3. Bibasilar atelectasis with trace pleural fluid. 4. Moderate pancolonic constipation. 5. Cholelithiasis with mild intrahepatic biliary duct dilatation. 6. Diffuse fatty infiltration liver. 7. Peripherally enhancing RIGHT renal cortical lesion measuring 10 mm not definitely cystic. Recommend 6 month follow-up CT abdomen pelvis. 8. No other acute findings. Laboratory Results WBC 7.4 10^3/uL (4.0-10.0) 06/16/22 08:19 RBC 3.27 10^6/uL (4.1-5.3) L 06/16/22 08:19 Hgb 8.2 g/dL (11.5-15.3) L 06/16/22 13:15 Hct 30.1 % (37.0-47.0) L 06/16/22 08:19 MCV 92.0 fl (81-99) 06/16/22 08:19 MCH 29.1 pg (28.0-34.0) 06/16/22 08:19 MCHC 31.6 g/dL (30.0-36.0) 06/16/22 08:19 RDW 13.6 % (12.1-15.1) 06/16/22 08:19 Plt Count 263 10^3/cmm (130-400) 06/16/22 08:19 MPV 9.3 fL (7.4-10.4) 06/16/22 08:19 Neut % (Auto) 81.1 % 06/16/22 08:19 Lymph % (Auto) 10.4 % 06/16/22 08:19 [place] % (Auto) 5.9 % 06/16/22 08:19 Eos % (Auto) 1.5 % 06/16/22 08:19 Baso % (Auto) 0.4 % 06/16/22 08:19 Neut # (Auto) 6.00 10^3/uL (1.8-7.7) 06/16/22 08:19 Lymph # (Auto) 0.8 10^3/uL (0.8-4.8) 06/16/22 08:19 [place] # (Auto) 0.4 10^3/uL (0.2-0.9) 06/16/22 08:19 Eos # (Auto) 0.1 10^3/uL (0.0-0.8) 06/16/22 08:19 Baso # (Auto) 0.0 10^3/uL (0.0-0.1) 06/16/22 08:19 Nucleated RBC % (auto) 0 % 06/16/22 08:19 Nucleated RBCs # 0.0 /100WBC 06/16/22 08:19 Sodium 138 mmol/L (136-145) 06/16/22 08:19 Potassium 4.6 mmol/L (3.5-5.1) 06/16/22 08:19 Chloride 103 mmol/L (98-107) 06/16/22 08:19 Carbon Dioxide 27 mmol/L (22-29) 06/16/22 08:19 Anion Gap 12.6 (5-19) 06/16/22 08:19 BUN 27 mg/dL (8-23) H 06/16/22 08:19 Creatinine 0.7 mg/dL (0.5-0.9) 06/16/22 08:19 GFR Calculation Not Reportable 06/16/22 08:19 Glucose 105 mg/dL (65-115) 06/16/22 08:19 Calculated Osmolality 291 mOsm/kg (285-295) 06/16/22 08:19 Calcium 8.8 mg/dL (8.5-10.5) 06/16/22 08:19 Total Bilirubin 0.4 mg/dL (0.15-1.2) 06/16/22 08:19 AST 10 U/L (0-32) 06/16/22 08:19 ALT 7 U/L (0-33) 06/16/22 08:19 Alkaline Phosphatase 73 U/L (35-105) 06/16/22 08:19 Total Protein 6.0 g/dL (6.6-8.7) L 06/16/22 08:19 Albumin 3.6 g/dL (3.5-5.2) 06/16/22 08:19 Globulin 2.4 g/dL (1.3-4.6) 06/16/22 08:19 Digoxin 0.6 ng/mL (0.6-1.2) 06/16/22 08:19 Laboratory Tests 06/16/22 08:19 Hgb 9.5 L A&P Assessment and plan (1) Rectal bleeding: Clinically appears to be diverticular bleeding with lack of pain, diverticulosis noted on imaging without findings of diverticulitis and amount of bright red blood noted. Hemorrhoidal bleeding also within the differential though not noted on examination. She is chronically on Eliquis increasing risk of bleeding. Additionally she is on chronic NSAID therapy in the form of Celebrex. (2) Acute blood loss anemia: With drop in hemoglobin from 9.5 to 8.2 noted on repeat check in the emergency room after recurrent bloody stool. Hemodynamically stable. Review of records indicates chronic normocytic anemia of unknown type, though suspect due to chronic inflammation given longstanding infection of the right knee. (3) Lower extremity edema: Chronic bilateral problem for which she has been started on Lasix dosing though lately has had increasing edema as compared to primary care providers description in April of swelling to the mid calf. Total protein is noted to be low although albumin is within normal range. Right lower extremity is more edematous than left lower extremity. This was also noted on previous examinations. Denies recent changes in diuretic dosing. (4) Chronic anticoagulation: On anticoagulation in the form of Eliquis chronically secondary to known history of atrial fibrillation. (5) NSAID long-term use: Has been on chronic Celebrex for arthritis pain (6) Afib: Chronic atrial fibrillation, rate controlled with digoxin and beta-blockade Qualifiers: Atrial fibrillation type: longstanding persistent Qualified Code(s): I48.11 - Longstanding persistent atrial fibrillation (7) Essential hypertension: With suboptimally controlled blood pressures today at least in part due to not having her usual medications this morning; chronically on Lasix every other day with last dose on Thursday, lisinopril daily and metoprolol daily (8) Alzheimer disease: Mild, on chronic galantamine therapy and follows with Dr. Mcmullen (9) Incomplete emptying of bladder: And urge incontinence, history of recurrent UTIs. Has been followed by Dr. Saez. On chronic methenamine and vitamin C with good result (10) Chronic infection of right knee: On chronic suppressive doxycycline therapy, has followed with infectious disease in [place] and more recently been referred to specialist in [place]. Has associated chronic draining wound that is being followed at wound care clinic. Recent cultures from the wound showed many white blood cells with rare tiny gram-positive cocci. (11) Abrasion of right great toe: Patient reports that she has had callus scraped on her right great toe. She has darkened scabbed area with some surrounding ecchymosis as described. Is not currently being followed in wound care for this that I have been able to discern. (12) Abnormal radiologic findings on diagnostic imaging of renal pelvis, ureter, or bladder: CT imaging today with 10 mm peripherally enhancing right renal cortical lesion for which follow-up CT imaging is recommended by radiology. Also with 11 mm right adrenal adenoma. Plan Dyslipidemia on chronic statin therapy Inpatient admission Hold Eliquis Serial H&H Check TIBC and coagulation studies Clear liquid diet for now Stool softeners If has persistent grossly bloody bowel movements and further drop in hemoglobin will consider inpatient consultation with surgery for further evaluation during hospital stay; if stabilizes will consider outpatient referral for consideration of endoscopy Currently also holding NSAID therapy PPI Ensure adequate blood pressure control We will give a few doses of IV diuresis monitoring response Oral potassium while on IV lasix Watch I's and O's and daily weight Telemetry monitoring Watch renal function Continue digoxin and beta-blockade Digoxin level was 0.6 today Continue home lisinopril If available continue home galantamine and methenamine Continue home doxycycline and wound care to right knee Check sed rate, CRP and stool lactoferrin Monitor wound to right foot for clinical change necessitating intervention Continue home statin therapy Supportive care otherwise Findings, concerns and plans were discussed with patient and she was given an opportunity to ask questions Currently anticipate discharge home with close outpatient follow-up to primary care provider, possibly surgery, wound care clinic/legal specialist for right knee and other providers as indicated. Risk and benefits of continued therapy with Eliquis and Celebrex will need to be reviewed before resumption. Full code Attestations Medical Necessity Statement*: Currently anticipate a stay greater than 2 midnights in this 89-year-old presenting with bright red blood per rectum, on Eliquis. She has had drop in hemoglobin from 9.5 to 8.2. In addition to this she has had increasing edema lately. With her advanced age, comorbid conditions and other medications as described above at risk for continued bleeding and associated complications without close monitoring and other care as described above. Coding Level of Care Code 39810 Moderate MDM includes risk/complexity, reviewing previous or external records, reviewing test results and ordering lab/other test(s) and High Time for a total of 80 minutes, includes reviewing past or interval history, examining/interviewing patient, placing orders, discussing plan of care with staff and documenting encounter Diagnoses Rectal bleeding K62.5 Acute blood loss anemia D62 Lower extremity edema R60.0 Chronic anticoagulation Z79.01 NSAID long-term use Z79.1 Afib I48.11 Atrial fibrillation type: longstanding persistent Essential hypertension I10 Alzheimer disease G30.9; F02.80 Incomplete emptying of bladder R33.9 Chronic infection of right knee M00.9 Abrasion of right great toe S90.411A Abnormal radiologic findings on diagnostic imaging of renal pelvis, ureter, or bladder R93.41
[2022-06-16 18:11] LABS: Hematocrit 28.4 % (37.0-47.0); Hemoglobin 8.8 g/dL (11.5-15.3)
[2022-06-16] MEDS: pantoprazole 40 mg SDV IVP (18:56)
[2022-06-16] MEDS: ascorbic acid 500 mg Tablet 1000 MG PO (18:59)
[2022-06-16] MEDS: doxycycline 100 mg Tablet PO (18:59)
[2022-06-16] MEDS: atorvastatin 40 mg Tablet 20 MG PO (22:09)
[2022-06-16] MEDS: FUROsemide 10 mg/mL SDV 2mL 20 MG IVP (22:10)
[2022-06-16 23:26] LABS: Hematocrit 27.9 % (37.0-47.0); Hemoglobin 8.9 g/dL (11.5-15.3)
[2022-06-17 04:00] VITALS: BP 147/75; PULSE 72; RESP 16; TEMP 36.7; O2SAT 97
[2022-06-17] MEDS: pantoprazole 40 mg SDV IVP ×2 (05:05→18:27)
[2022-06-17 06:09] LABS: Basophils % 0.5 %; Eosinophils # 0.1 10^3/uL (0.0-0.8); Eosinophils % 2.4 %; Hematocrit 25.4 % (37.0-47.0); Hemoglobin 8.2 g/dL (11.5-15.3); Lymphocytes # 0.6 10^3/uL (0.8-4.8); Lymphocytes % 11.5 %; Mean Corpuscular HGB Conc 32.3 g/dL (30.0-36.0); Mean Corpuscular Hemoglobin 29.5 pg (28.0-34.0); Mean Corpuscular Volume 91.4 fl (81-99); Mean Platelet Volume 9.7 fL (7.4-10.4); Monocytes # 0.5 10^3/uL (0.2-0.9); Monocytes % 8.2 %; Neutrophils # 4.23 10^3/uL (1.8-7.7); Neutrophils % 76.9 %; Nucleated Red Blood Cells % 0 %; Platelet Count 223 10^3/cmm (130-400); Red Blood Count 2.78 10^6/uL (4.1-5.3); Red Cell Distribution Width 13.7 % (12.1-15.1); White Blood Count 5.5 10^3/uL (4.0-10.0)
[2022-06-17 06:11] LABS: Erythrocyte Sedimentation Rate 9 mm/hr (0-15)
[2022-06-17 06:19] LABS: INR 1.22 (0.8-1.2)
[2022-06-17 06:20] LABS: Partial Thromboplastin Time 28.6 SECONDS (23.9-36.7)
[2022-06-17 06:31] LABS: Anion Gap 14.9 (5-19); Blood Urea Nitrogen 19 mg/dL (8-23); C Reactive Protein 3.7 mg/L (0.0-4.9); Calcium 8.3 mg/dL (8.5-10.5); Carbon Dioxide 27 mmol/L (22-29); Chloride 102 mmol/L (98-107); Glucose 92 mg/dL (65-115); Iron 31 ug/dL (37-145); Osmolality Calculated 292 mOsm/kg (285-295); Percent Saturation 14.1 % (20-50); Potassium 3.9 mmol/L (3.5-5.1); Sodium 140 mmol/L (136-145); Total Iron Binding Capacity 219 mcg/dl; Unsaturated Iron Binding 188 ug/dL (112-347)
[2022-06-17 07:52] VITALS: BP 147/78; PULSE 90; RESP 18; TEMP 36.7; O2SAT 99
[2022-06-17 08:00] VITALS: O2SAT 96
[2022-06-17 09:49] VITALS: PULSE 90
[2022-06-17] MEDS: magnesium oxide 400 mg tablet PO (09:49)
[2022-06-17] MEDS: digoxin 125 mcg Tablet PO (09:49)
[2022-06-17] MEDS: ascorbic acid 500 mg Tablet 1000 MG PO ×2 (09:50→18:29)
[2022-06-17] MEDS: metoprolol succinate ER (24 HR) 25 mg Tablet PO (09:50)
[2022-06-17] MEDS: loratadine 10 mg Tablet PO (09:50)
[2022-06-17] MEDS: doxycycline 100 mg Tablet PO ×2 (09:50→18:28)
[2022-06-17] MEDS: lisinopril 10 mg Tablet PO (09:50)
[2022-06-17] MEDS: FUROsemide 10 mg/mL SDV 2mL 20 MG IVP (09:51)
[2022-06-17] MEDS: potassium chloride ER 20 mEq Tablet PO (09:51)
--- NOTE | 2022-06-17 10:00 | ECG_ITS ---
[facility] Test Date: 2022-06-17 Pat Name: Stella Kang Department: Room: 262 Gender: Female Inclusion Intern: : 1940 Requested By: Carolina Pimentel Order Number: [id number] Bruno MD: Russell Moreira M.D. Measurements Intervals Nikolai Rate: 71 P: 110 OH: 170 QRS: 189 QRSD: 84 T: 139 QT: 368 QTc: 402 Interpretive Statements SINUS RHYTHM WITH OCCASIONAL SUPRAVENTRICULAR PREMATURE COMPLEXES POSSIBLE RIGHT VENTRICULAR HYPERTROPHY [SOME/ALL OF: PROMINENT R IN V1, LATE TRANSITION, RAD, WOO, SSS] ANTEROLATERAL MYOCARDIAL INFARCTION , OF INDETERMINATE AGE [40+ ms Q WAVE IN I/aVL/V3-V6] Compared to ECG 08/21/2016 14:16:13 Myocardial infarct finding now present Electronically Signed On 06-17-2022 18:12:36 [employer]PER[employer] by Russell Moreira M.D. [id number]
[2022-06-17 16:00] VITALS: BP 139/80; PULSE 68; RESP 15; TEMP 36.6; O2SAT 99
[2022-06-17] MEDS: docusate sodium 100 mg Capsule PO (19:23)
[2022-06-17 19:54] VITALS: BP 137/76; PULSE 59; RESP 17; TEMP 36.8; O2SAT 97
--- NOTE | 2022-06-17 20:31 | PM.PN ---
Subjective Subjective: So far without recurrence of BRBPR. Denies abdominal pain. No nausea vomiting or other GI symptoms. Vitals/I&O/Wt Last Vital Signs Temp 98.2 F 06/17/22 19:54 Pulse 59 L 06/17/22 19:54 Resp 17 06/17/22 19:54 BP 137/76 06/17/22 19:54 Pulse Ox 97 06/17/22 19:54 O2 Del Method 06/17/22 08:00 06/17/22 06/17/22 06/17/22 06:59 14:59 22:59 Intake Total 240 / 240 275 / 515 Balance 240 / 240 275 / 515 Weight last 48 hrs Weight 59.557 kg Weight 62.142 kg Weight 58.513 kg Physical Exam Const: COMMON NORMALS: patient oriented x3 and alert GENERAL APPEARANCE: cooperative ORIENTATION/CONSCIOUSNESS: Yes awake HENMT: COMMON NORMALS: oropharynx normal Neck/C-Spine: COMMON NORMALS: no JVD Resp: COMMON NORMALS: normal respiratory effort and clear to auscultation bilaterally AUSCULTATION: clear to auscultation bilaterally Cardio: COMMON NORMALS: no JVD, regular rhythm, S1 normal heart sound present, S2 normal heart sound present and No murmurs present (Cardio) RHYTHM: regular rhythm HEART SOUNDS: S1 normal heart sound present and S2 normal heart sound present GI: COMMON NORMALS: Normal to inspection, nondistended, normoactive bowel sounds present, Soft to palpation and non-tender PALPATION: Yes Soft to palpation Extremity: COMMON NORMALS: no joint enlargement GENERAL: Yes edema (2+ chronic edema bilateral lower extremities) Neuro: COMMON NORMALS: patient oriented x3 and moves all extremities SENSORIUM/ORIENTATION: Yes alert Data 06/17/22 05:39 06/17/22 05:39 A&P Assessment and plan (1) Rectal bleeding: So far without recurrence. Continue to hold off anticoagulant. CBC reviewed. Hemoglobin slight downtrend to 8.2. Discussed with her. Requested reassessment blood count in the morning. Discontinue NSAID. She is agreeable to a referral for assessment by surgery at discharge for consideration of outpatient arrangement for colonoscopy. We discussed with her consideration of timing of discharge. Consideration was for today versus tomorrow, although given her heart rate has increased from baseline up to 90s we will monitor initially in the hospital and reassess blood counts in the morning. (2) Acute blood loss anemia: H&P reviewed. As above (3) Lower extremity edema: Chronic bilateral problem for which she has been started on Lasix dosing though lately has had increasing edema as compared to primary care providers description in April of swelling to the mid calf. Total protein is noted to be low although albumin is within normal range. Right lower extremity is more edematous than left lower extremity. This was also noted on previous examinations. Denies recent changes in diuretic dosing. (4) Chronic anticoagulation: On anticoagulation in the form of Eliquis chronically secondary to known history of atrial fibrillation. (5) NSAID long-term use: Has been on chronic Celebrex for arthritis pain (6) Afib: Chronic atrial fibrillation, rate controlled with digoxin and beta-blockade Qualifiers: Atrial fibrillation type: longstanding persistent Qualified Code(s): I48.11 - Longstanding persistent atrial fibrillation (7) Essential hypertension: With suboptimally controlled blood pressures today at least in part due to not having her usual medications this morning; chronically on Lasix every other day with last dose on Thursday, lisinopril daily and metoprolol daily (8) Alzheimer disease: Mild, on chronic galantamine therapy and follows with Dr. Mcmullen (9) Incomplete emptying of bladder: And urge incontinence, history of recurrent UTIs. Has been followed by Dr. Saez. On chronic methenamine and vitamin C with good result (10) Chronic infection of right knee: On chronic suppressive doxycycline therapy, has followed with infectious disease in [place] and more recently been referred to specialist in [place]. Has associated chronic draining wound that is being followed at wound care clinic. Recent cultures from the wound showed many white blood cells with rare tiny gram-positive cocci. (11) Abrasion of right great toe: Patient reports that she has had callus scraped on her right great toe. She has darkened scabbed area with some surrounding ecchymosis Follow-up with primary provider. (12) Abnormal radiologic findings on diagnostic imaging of renal pelvis, ureter, or bladder: CT imaging today with 10 mm peripherally enhancing right renal cortical lesion for which follow-up CT imaging is recommended by radiology. Also with 11 mm right adrenal adenoma. Plan Dyslipidemia on chronic statin therapy Attestations Medical Necessity Statement*: Continue admission for assessment management of acute anemia with BRBPR in a lady on anticoagulation. Coding Level of Care Code 04531 Moderate MDM includes risk/complexity, reviewing previous or external records, reviewing test results and ordering lab/other test(s) Diagnoses Rectal bleeding K62.5 Acute blood loss anemia D62 Lower extremity edema R60.0 Chronic anticoagulation Z79.01 NSAID long-term use Z79.1 Afib I48.11 Atrial fibrillation type: longstanding persistent Essential hypertension I10 Alzheimer disease G30.9; F02.80 Incomplete emptying of bladder R33.9 Chronic infection of right knee M00.9 Abrasion of right great toe S90.411A Abnormal radiologic findings on diagnostic imaging of renal pelvis, ureter, or bladder R93.41
[2022-06-17] MEDS: atorvastatin 40 mg Tablet 20 MG PO (21:29)
[2022-06-18] VITALS (8 sets, daily range): BP systolic 131–144; BP diastolic 62–67; PULSE 55–90; RESP 16–18; TEMP 36.3–37.2; O2SAT 94–98; BMI 21.4
[2022-06-18] MEDS: pantoprazole 40 mg SDV IVP (04:40)
[2022-06-18 06:20] LABS: Basophils % 0.2 %; Eosinophils # 0.1 10^3/uL (0.0-0.8); Eosinophils % 2.4 %; Hematocrit 24.4 % (37.0-47.0); Lymphocytes # 0.8 10^3/uL (0.8-4.8); Mean Corpuscular HGB Conc 32.8 g/dL (30.0-36.0); Mean Corpuscular Hemoglobin 30.1 pg (28.0-34.0); Mean Corpuscular Volume 91.7 fl (81-99); Monocytes # 0.5 10^3/uL (0.2-0.9); Neutrophils # 4.33 10^3/uL (1.8-7.7); Neutrophils % 74.7 %; Nucleated Red Blood Cells % 0 %; Platelet Count 230 10^3/cmm (130-400); Red Blood Count 2.66 10^6/uL (4.1-5.3); Red Cell Distribution Width 13.9 % (12.1-15.1); White Blood Count 5.8 10^3/uL (4.0-10.0)
[2022-06-18] MEDS: potassium chloride ER 20 mEq Tablet PO (08:03)
[2022-06-18] MEDS: docusate sodium 100 mg Capsule PO (08:03)
[2022-06-18] MEDS: lisinopril 10 mg Tablet PO (08:03)
[2022-06-18] MEDS: doxycycline 100 mg Tablet PO (08:03)
[2022-06-18] MEDS: metoprolol succinate ER (24 HR) 25 mg Tablet PO (08:03)
[2022-06-18] MEDS: magnesium oxide 400 mg tablet PO (08:03)
[2022-06-18] MEDS: ascorbic acid 500 mg Tablet 1000 MG PO (08:04)
[2022-06-18] MEDS: FUROsemide 10 mg/mL SDV 2mL 20 MG IVP (08:53)
[2022-06-18] MEDS: loratadine 10 mg Tablet PO (08:54)
--- NOTE | 2022-06-18 10:40 | PM.DCS ---
Discharge Providers Date of Admission: 06/16/22 15:39 Date of Discharge: June 18, 2022 Attending Provider at Admission: Carolina Pimentel MD Attending Provider at Discharge: Jw Schmitz Primary Care Provider: Rob Grant MD Diagnoses at Discharge Discharge Diagnosis (1) Rectal bleeding: Status: Acute (2) Acute blood loss anemia: Status: Acute (3) Lower extremity edema: Status: Chronic (4) Chronic anticoagulation: Status: Chronic Permanent problem details: eliquis, secondary to atrial fibrillation (5) NSAID long-term use: Status: Chronic (6) Afib: Status: Chronic Qualifiers: Atrial fibrillation type: longstanding persistent Qualified Code(s): I48.11 - Longstanding persistent atrial fibrillation Permanent problem details: on digoxin, metoprolol, eliquis, follows with Dr Mitchell (7) Essential hypertension: Status: Chronic (8) Alzheimer disease: Status: Chronic Permanent problem details: follows with Benedict (9) Incomplete emptying of bladder: Status: Chronic Permanent problem details: follows with Se (10) 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 (11) Abrasion of right great toe: Status: Acute (12) Abnormal radiologic findings on diagnostic imaging of renal pelvis, ureter, or bladder: Status: Acute Permanent problem details: CT Abd/pelvis 06/16/2022 Peripherally enhancing RIGHT renal cortical lesion measuring 10 mm not definitely cystic. Recommend 6 month follow-up CT abdomen pelvis. Also with 11 mm right adrenal adenoma. Reason for Visit Reason for Visit: blood in stool Hospital Course Hospital Course Pleasant 81-year-old lady with history of atrial fibrillation on anticoagulation with Eliquis, history of osteoarthritis, NSAID use, was hospitalized after presenting with several episodes of bright red blood per rectum. She has never had a colonoscopy. No known history of hemorrhoids. Noted to have acute anemia with prior hemoglobin of 9.5, hemoglobin at presentation noted down to 8.2 after additional bloody bowel movement in ER. On hospitalization her anticoagulant was held. Initially received a dose of antibiotics for consideration of early diverticulitis, however, had no persistent symptoms. Remained without any abdominal pain. While in hospital had no further bloody bowel movements. Hemoglobin reassessed this morning was 8. As she is otherwise feeling better, without recurrence of bleeding, she is discharging with follow-up with surgery for consideration of assessment by colonoscopy. She is for now not resuming anticoagulation until reassessment. She continues on chronic suppressive therapy with doxycycline regarding chronic right knee infection. Also noted to have abrasion of the right great toe, please reassess in office. On imaging incidentally found to have 10 mm peripherally enhancing right renal cortical lesion, follow-up CT recommended by radiology. Also with 11 mm right adrenal adenoma. Incidentally also found to have fatty liver disease. Physical Exam Const: COMMON NORMALS: patient oriented x3 and alert GENERAL APPEARANCE: cooperative ORIENTATION/CONSCIOUSNESS: Yes awake HENMT: COMMON NORMALS: oropharynx normal Neck/C-Spine: COMMON NORMALS: no JVD Resp: COMMON NORMALS: normal respiratory effort and clear to auscultation bilaterally AUSCULTATION: clear to auscultation bilaterally Cardio: COMMON NORMALS: no JVD, regular rhythm, S1 normal heart sound present, S2 normal heart sound present and No murmurs present (Cardio) RHYTHM: regular rhythm HEART SOUNDS: S1 normal heart sound present and S2 normal heart sound present GI: COMMON NORMALS: Normal to inspection, nondistended, normoactive bowel sounds present, Soft to palpation and non-tender PALPATION: Yes Soft to palpation Extremity: COMMON NORMALS: no joint enlargement GENERAL: Yes edema (2+ chronic edema bilateral lower extremities) Neuro: COMMON NORMALS: patient oriented x3 and moves all extremities SENSORIUM/ORIENTATION: Yes alert Skin: COMMON NORMALS: no rashes or lesions noted GENERAL SKIN EXAM: no rashes or lesions noted Discharge Data Studies Completed and Pending Completed Studies During Hospitalization Category Date Time Status CT abdomen pelvis w con* [id number] Stat Cat Scan 06/16/22 09:35 Completed Pending at discharge Category Date Time Status Complete Blood Count w/Auto AM LABS Lab 06/19/22 04:00 Ordered Complete Blood Count w/Auto AM LABS Lab 06/20/22 04:00 Ordered Stool WBC [Lactoferrin] Routine Lab 06/16/22 20:56 Uncollected Radiology Impressions Abdomen/Pelvis CT 06/16/22 09:35 IMPRESSION: 1. Sigmoid diverticulosis. No definite evidence of acute diverticulitis. 2. Urine distended bladder. 3. Bibasilar atelectasis with trace pleural fluid. 4. Moderate pancolonic constipation. 5. Cholelithiasis with mild intrahepatic biliary duct dilatation. 6. Diffuse fatty infiltration liver. 7. Peripherally enhancing RIGHT renal cortical lesion measuring 10 mm not definitely cystic. Recommend 6 month follow-up CT abdomen pelvis. 8. No other acute findings. Laboratory Results WBC 5.8 10^3/uL (4.0-10.0) 06/18/22 05:47 RBC 2.66 10^6/uL (4.1-5.3) L 06/18/22 05:47 Hgb 8.0 g/dL (11.5-15.3) L 06/18/22 05:47 Hct 24.4 % (37.0-47.0) L 06/18/22 05:47 MCV 91.7 fl (81-99) 06/18/22 05:47 MCH 30.1 pg (28.0-34.0) 06/18/22 05:47 MCHC 32.8 g/dL (30.0-36.0) 06/18/22 05:47 RDW 13.9 % (12.1-15.1) 06/18/22 05:47 Plt Count 230 10^3/cmm (130-400) 06/18/22 05:47 MPV 10.0 fL (7.4-10.4) 06/18/22 05:47 Neut % (Auto) 74.7 % 06/18/22 05:47 Lymph % (Auto) 13.0 % 06/18/22 05:47 Teller % (Auto) 9.0 % 06/18/22 05:47 Eos % (Auto) 2.4 % 06/18/22 05:47 Baso % (Auto) 0.2 % 06/18/22 05:47 Neut # (Auto) 4.33 10^3/uL (1.8-7.7) 06/18/22 05:47 Lymph # (Auto) 0.8 10^3/uL (0.8-4.8) 06/18/22 05:47 Teller # (Auto) 0.5 10^3/uL (0.2-0.9) 06/18/22 05:47 Eos # (Auto) 0.1 10^3/uL (0.0-0.8) 06/18/22 05:47 Baso # (Auto) 0.0 10^3/uL (0.0-0.1) 06/18/22 05:47 Nucleated RBC % (auto) 0 % 06/18/22 05:47 Nucleated RBCs # 0.0 /100WBC 06/18/22 05:47 ESR 9 mm/hr (0-15) 06/17/22 05:39 PT 15.80 SECONDS (12.1-14.9) H 06/17/22 05:39 INR 1.22 (0.8-1.2) H 06/17/22 05:39 APTT 28.6 SECONDS (23.9-36.7) 06/17/22 05:39 Sodium 140 mmol/L (136-145) 06/17/22 05:39 Potassium 3.9 mmol/L (3.5-5.1) 06/17/22 05:39 Chloride 102 mmol/L (98-107) 06/17/22 05:39 Carbon Dioxide 27 mmol/L (22-29) 06/17/22 05:39 Anion Gap 14.9 (5-19) 06/17/22 05:39 BUN 19 mg/dL (8-23) 06/17/22 05:39 Creatinine 0.6 mg/dL (0.5-0.9) 06/17/22 05:39 GFR Calculation Not Reportable 06/17/22 05:39 Glucose 92 mg/dL (65-115) 06/17/22 05:39 Calculated Osmolality 292 mOsm/kg (285-295) 06/17/22 05:39 Calcium 8.3 mg/dL (8.5-10.5) L 06/17/22 05:39 Iron 31 ug/dL (37-145) L 06/17/22 05:39 TIBC 219 mcg/dl 06/17/22 05:39 % Saturation 14.1 % (20-50) L 06/17/22 05:39 Unsat Iron Binding 188 ug/dL (112-347) 06/17/22 05:39 Total Bilirubin 0.4 mg/dL (0.15-1.2) 06/16/22 08:19 AST 10 U/L (0-32) 06/16/22 08:19 ALT 7 U/L (0-33) 06/16/22 08:19 Alkaline Phosphatase 73 U/L (35-105) 06/16/22 08:19 C-Reactive Protein 3.7 mg/L (0.0-4.9) 06/17/22 05:39 Total Protein 6.0 g/dL (6.6-8.7) L 06/16/22 08:19 Albumin 3.6 g/dL (3.5-5.2) 06/16/22 08:19 Globulin 2.4 g/dL (1.3-4.6) 06/16/22 08:19 Digoxin 0.6 ng/mL (0.6-1.2) 06/16/22 08:19 Vitals Last Vital Signs Temp 98.3 F 06/18/22 08:00 Pulse 64 06/18/22 08:00 Resp 18 06/18/22 08:00 BP 131/65 06/18/22 08:00 Pulse Ox 94 06/18/22 08:00 O2 Del Method 06/18/22 08:00 Discharge Plan Discharge Patient Disposition: Home Condition: Stable Prescriptions: Continued ascorbic acid (vitamin C) 250 mg tablet 250 mg PO DAILY calcium carb-vitamin D3-vit K2 500 mg calcium- 200 unit-90 mcg tablet 1 tab PO DAILY acetaminophen [Tylenol] 325 mg capsule 325 mg PO QID PRN (Reason: Pain) magnesium 250 mg tablet 250 mg PO DAILY lisinopril 10 mg tablet 10 mg PO DAILY Qty: 90 3RF galantamine 8 mg tablet See Rx Instructions .ROUTE .COMPLEX Qty: 180 0RF Dose Instruction: TAKE 1 TABLET BY MOUTH TWICE DAILY WITH THE MORNING AND EVENING MEAL Rx Instructions: TAKE 1 TABLET BY MOUTH TWICE DAILY WITH THE MORNING AND EVENING MEAL loratadine 10 mg tablet 10 mg PO DAILY Qty: 14 0RF hydroxyzine HCl 10 mg tablet 10 mg PO BID PRN (Reason: itching) Qty: 14 0RF celecoxib [Celebrex] 200 mg capsule 200 mg PO BID Qty: 60 6RF metoprolol succinate 25 mg tablet extended release 24 hr 25 mg PO DAILY Qty: 90 3RF atorvastatin 10 mg tablet 10 mg PO BEDTIME Qty: 90 1RF methenamine hippurate 1 gram tablet See Rx Instructions .ROUTE .COMPLEX Qty: 180 3RF Dose Instruction: TAKE 1 TABLET (1 GRAM) TWICE A DAY. TAKE 1000 MG OF VITAMIN C WITH EACH DOSE OF METHENAMINE Rx Instructions: TAKE 1 TABLET (1 GRAM) TWICE A DAY. TAKE 1000 MG OF VITAMIN C WITH EACH DOSE OF METHENAMINE Vitamin C 1,000 mg Tablet 1,000 mg PO BID doxycycline hyclate 100 mg tablet 100 mg PO BID furosemide 40 mg tablet 40 mg PO EVERY OTHER DAY digoxin 125 mcg (0.125 mg) tablet 125 mcg PO EVERY OTHER DAY Rx Instructions: Take 1 tab (125mcg) every other day Held Eliquis 5 mg tablet 5 mg PO BID Hold Instructions: Resume on 06/26/22. Discharge Orders: Discharge Order (Routine); Ordered 06/18/22 Ordered By: Jw Schmitz Referrals: Howard Chu DO [Physician] - 1 week ([facility]) Rob Grant MD [Primary Care Provider] - Discharge Diet: Usual diet Discharge Activity: Resume usual activity Patient Instructions: Celecoxib (By mouth), GI Bleeding, Non-Alcoholic Fatty Liver Disease (GEN), Kidney Cyst (GEN), Pain Management Activity Restrictions/Additional Instructions: You were seen today for rectal bleeding. Recommend that you stop the use of ibuprofen and Aleve. CT of your abdomen did not show any acute changes but did show diverticulosis without signs of infection. Also recommend that you hold your Eliquis for now. Rechecking hemoglobin with your primary care doctor tomorrow. Do not restart your Eliquis until advised to do so by your primary care physician. You should see your primary care physician within the week. Please follow-up with your primary doctor regarding peripherally enhancing RIGHT renal cortical lesion measuring 10 mm not definitely cystic incidentally seen on CT scan. Recommend 6 month follow-up CT abdomen pelvis. Follow-up with your primary doctor for assessment of toe abrasion. Please follow-up with your primary doctor regarding incidental finding also of fatty liver disease seen on CT scan. Continue follow-up with regards to chronic knee infection as previously. Please be aware of the risks with long-term use of NSAIDs, like Celebrex, with risks including upper GI irritation, ulcers, bleeding, kidney injury. Discharge Attestations Time Spent in Discharge Care*: greater than 30 min Status at Discharge: Cognitive status at discharge: cognitively intact, Behavioral status at discharge: [facility], Quality Metrics Clinical Quality Measures [ No reported AMI, CVA or VTE this stay] Coding Level of Care Code 10207 Total time (in minutes) for Discharge: 40 Diagnoses Rectal bleeding K62.5 Acute blood loss anemia D62 Lower extremity edema R60.0 Chronic anticoagulation Z79.01 NSAID long-term use Z79.1 Afib I48.11 Atrial fibrillation type: longstanding persistent Essential hypertension I10 Alzheimer disease G30.9; F02.80 Incomplete emptying of bladder R33.9 Chronic infection of right knee M00.9 Abrasion of right great toe S90.411A Abnormal radiologic findings on diagnostic imaging of renal pelvis, ureter, or bladder R93.41
== END 2022-06-18 13:51 | disposition home or self-care (01) | DRG 378 ==
LOC: ER 13:45 → MEDSURG 16:24
PROVIDERS: Admitting Provider Hospitalist; Emergency Provider Family Medicine; PCP Family Medicine; Visit Provider Internal Medicine
DX: K92.1 Melena (principal); D62 Acute posthemorrhagic anemia; I48.11 Longstanding persistent atrial fibrillation; Z79.1 Long term (current) use of non-steroidal anti-inflammatories (NSAID); I10 Essential (primary) hypertension; G30.9 Alzheimer's disease, unspecified; F02.80 Dementia in other diseases classified elsewhere, unspecified severity, without behavioral disturbance, psychotic disturbance, mood disturbance, and anxiety; R33.9 Retention of urine, unspecified; T84.53XD Infection and inflammatory reaction due to internal right knee prosthesis, subsequent encounter; Y79.2 Prosthetic and other implants, materials and accessory orthopedic devices associated with adverse incidents; D35.01 Benign neoplasm of right adrenal gland; M19.90 Unspecified osteoarthritis, unspecified site; K76.0 Fatty (change of) liver, not elsewhere classified; K59.00 Constipation, unspecified; K57.30 Diverticulosis of large intestine without perforation or abscess without bleeding; N28.9 Disorder of kidney and ureter, unspecified; Z89.421 Acquired absence of other right toe(s); E78.5 Hyperlipidemia, unspecified; E11.42 Type 2 diabetes mellitus with diabetic polyneuropathy; K22.70 Barrett's esophagus without dysplasia
CPT/HCPCS: 36415; 74177; 80048; 80053; 80162; 83540; 83550; 85014; 85018; 85025; 85610; 85651; 85730; 86140; 93005; 97597; 99285; C9113; J1940; Q9967

== ENCOUNTER → 2022-06-20 12:34 | Outpatient (BNVA) | payer MEDICARE, OTHER, SELFPAY | PROVIDERS: PCP Family Medicine; Visit Provider Family Medicine | DX: E78.5 Hyperlipidemia, unspecified (principal); Z79.01 Long term (current) use of anticoagulants | CPT/HCPCS: 85014; 85018 ==

== ENCOUNTER → 2022-06-27 10:52 | Outpatient (BNVA) | payer MEDICARE, OTHER, SELFPAY | PROVIDERS: PCP Family Medicine; Visit Provider Thoracic Surgery (Cardiothoracic Vascular Surgery) | DX: T81.31XD Disruption of external operation (surgical) wound, not elsewhere classified, subsequent encounter (principal); Y83.8 Other surgical procedures as the cause of abnormal reaction of the patient, or of later complication, without mention of misadventure at the time of the procedure | CPT/HCPCS: 11042; A6212 ==

== ENCOUNTER → 2022-07-08 14:00 | Outpatient (BNVA) | payer MEDICARE, OTHER, SELFPAY | PROVIDERS: PCP Family Medicine; Visit Provider Surgery | DX: K92.1 Melena (principal); D64.9 Anemia, unspecified | CPT/HCPCS: 99203 ==

== ENCOUNTER → 2022-07-11 09:47 | Outpatient (BNVA) | payer MEDICARE, OTHER, SELFPAY | PROVIDERS: PCP Family Medicine; Visit Provider Thoracic Surgery (Cardiothoracic Vascular Surgery) | DX: T81.31XD Disruption of external operation (surgical) wound, not elsewhere classified, subsequent encounter (principal); Y83.8 Other surgical procedures as the cause of abnormal reaction of the patient, or of later complication, without mention of misadventure at the time of the procedure | CPT/HCPCS: 97597; A6212 ==

== ENCOUNTER → 2022-07-17 13:23 | Outpatient (BNVA) | payer MEDICARE, OTHER, SELFPAY | PROVIDERS: PCP Family Medicine; Visit Provider Internal Medicine Cardiovascular Disease | DX: I48.11 Longstanding persistent atrial fibrillation (principal); I10 Essential (primary) hypertension; Z79.01 Long term (current) use of anticoagulants; R60.0 Localized edema | CPT/HCPCS: 99214 ==

== ENCOUNTER → 2022-08-01 10:34 | Outpatient (BNVA) | payer MEDICARE, OTHER, SELFPAY | PROVIDERS: PCP Family Medicine; Visit Provider Nurse Practitioner Family | DX: T81.31XD Disruption of external operation (surgical) wound, not elsewhere classified, subsequent encounter (principal); Y83.8 Other surgical procedures as the cause of abnormal reaction of the patient, or of later complication, without mention of misadventure at the time of the procedure | CPT/HCPCS: 87070; 87176; 87205; 97597 ==

== ENCOUNTER 2022-08-06 06:02 | Day surgery (SDC) | payer MEDICARE, OTHER, SELFPAY ==
[2022-08-04 10:02] VITALS: BMI 21.6
[2022-08-06 06:18] VITALS: BP 142/72; PULSE 64; RESP 16; TEMP 36.6; O2SAT 99
[2022-08-06] MEDS: sodium chloride 0.9% 1,000 ML 30 ML IV (06:25)
[2022-08-06 06:34] LABS: Glucose Point of Care 101 mg/dL (70-110)
--- NOTE | 2022-08-06 06:54 | W.PM.OPSUD ---
Surgery/Procedure H&P Update DATE OF PROCEDURE: August 06, 2022 DATE H&P PERFORMED: 07/08/22 H&P UPDATE INFORMATION: I have reviewed H&P completed within last 30 days, I have examined patient prior to procedure and No changes to prior documentation PREOP DIAGNOSIS: history of BE PLANNED PROCEDURE: Operation Date: 08/06/22 07:30 Proposed Procedures p EGD(Not Applicable) [place] [address] EGD 09712 Colon K92.1 melena D50.9 iron deficiency aniemia(Not Applicable) - Howard Chu DO
--- NOTE | 2022-08-06 06:55 | P.ANESASSM_ITS ---
Pre-Anesthetic Assessment Height/Weight: Height 1.65 m Weight 58.967 kg Temp Pulse Resp BP Pulse Ox O2 Del Method 97.8 F 64 16 142/72 99 08/06/22 06:18 08/06/22 06:18 08/06/22 06:18 08/06/22 06:18 08/06/22 06:18 08/06/22 06:18 Preop Diagnosis: history of BE Operation Date: 08/06/22 07:30 Proposed Procedures p EGD(Not Applicable) - [place] [address] EGD 15032 Colon K92.1 melena D50.9 iron deficiency aniemia(Not Applicable) - Howard Chu DO Was Beta Chris taken within 24 hours: Yes Was Clonidine taken within 24 hours: N/A Last intake: Intake Last Liquid Date 08/05/22 Last Liquid Time 19:00 Last Solid Date 08/04/22 Last Solid Time 19:00 Social No alcohol and No tobacco Exam alert, oriented x 3, clear to auscultation bilaterally and regular rate & rhythm Airway Submandibular: within normal limits Cervical ROM: within normal limits Mallampati: Class I Dentition: full History/ROS No significant history except as noted and No significant complaints Pulmonary None reported CV/HEM Atrial Fibrillation and Hypertension EKG reviewed None reported Hepatic None reported GI None reported Metabolic Diabetes Mellitus and Hyperlipidemia [facility] None reported Neuropsych None reported Anesthetic Plan ASA status: 3 Anesthesia: Anesthesia Evaluation and MAC Risk of > 500 ml blood loss (7ml/kg in children): Yes, adequate IV access and fluids planned Medications/Allergies Home Medications Medication Instructions Recorded Confirmed Last Taken Type acetaminophen 325 mg capsule 325 mg PO QID PRN Pain 06/14/19 08/06/22 08/05/22 History (Tylenol) magnesium 250 mg tablet 250 mg PO DAILY 06/14/19 08/06/22 08/05/22 History calcium carbonate 500 mg-vitamin 1 tab PO DAILY 12/26/20 08/06/22 08/05/22 History D3 200 unit-vitamin K2 90 mcg tablet metoprolol succinate 25 mg 25 mg PO DAILY #90 tabs 01/27/22 08/06/22 08/06/22 Rx tablet,extended release 24 hr lisinopril 10 mg tablet 10 mg PO DAILY #90 tabs 03/05/22 08/06/22 08/05/22 Rx atorvastatin 10 mg tablet 10 mg PO BEDTIME #90 tabs 04/08/22 08/06/22 08/05/22 Rx loratadine 10 mg tablet 10 mg PO DAILY #14 tabs 04/18/22 08/06/22 08/05/22 Rx apixaban 5 mg tablet (Eliquis) 5 mg PO BID 06/16/22 08/06/22 08/03/22 History ascorbic acid (vitamin C) 1,000 mg 1,000 mg PO BID 06/16/22 08/06/22 08/05/22 History tablet (Vitamin C) digoxin 125 mcg (0.125 mg) tablet 125 mcg PO EVERY OTHER DAY 06/16/22 08/06/22 08/06/22 History furosemide 40 mg tablet See Rx Instructions .Route 06/30/22 08/06/22 08/05/22 Rx .COMPLEX #45 tabs metoprolol tartrate 25 mg tablet 25 mg PO BID PRN for tachycardia 07/17/22 08/06/22 08/06/22 Rx #60 tabs sodium hypochlorite 0.5 % solution 1 applic topical BID cellulitis 08/01/22 08/06/22 08/05/22 Rx (Dakin's Solution) #473 mL cyanocobalamin (vitamin B-12) 100 100 mcg PO DAILY 08/04/22 08/06/22 08/05/22 History mcg tablet (Vitamin B-12) galantamine 8 mg tablet 8 mg PO BID 08/04/22 08/06/22 08/05/22 History methenamine hippurate 1 gram tablet 1 g PO BID 08/04/22 08/06/22 08/05/22 History Allergies Allergy/AdvReac Type Severity Reaction Status Date / Time ezetimibe [From Zetia] Allergy unknown Verified 08/06/22 06:20 fenofibrate Allergy unknown Verified 08/06/22 06:20 lovastatin Allergy unknown Verified 08/06/22 06:20 NSAIDS (Non-Steroidal Allergy unknown Verified 08/06/22 06:20 Anti-Inflamma simvastatin [From Vytorin] Allergy unknown Verified 08/06/22 06:20 Current Medications Generic Name Dose Route Start Last Admin Trade Name Freq PRN Reason Stop Dose Admin Sodium Chloride 1,000 mls @ 30 mls/hr 08/06/22 06:15 08/06/22 06:25 Sodium Chloride 0.9% IV 08/07/22 06:14 30 mls/hr .Q24H PARVIN Administration PFSH Anesthesia Medical History Afib on digoxin, metoprolol, eliquis, follows with Dr Mitchell 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 Chronic anticoagulation eliquis, secondary to atrial fibrillation 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, treated with chronic doxycycline, followed by Dr Catina CHÁVEZ in [place], and referred to specialist in [facility] Chronic venous insufficiency Diabetic peripheral neuropathy associated with type 2 diabetes mellitus diabetes resolved with weight loss, neuropathy persisted DM type 2 (diabetes mellitus, type 2) Improved after weight loss not on any antihyperglycemics Dyslipidemia Essential hypertension Incomplete emptying of bladder follows with Saez Primary osteoarthritis of left knee Recurrent UTI Urgency incontinence Valgus deformity, not elsewhere classified, left knee Surgical History Amputated toe of right foot H/O shoulder surgery History of appendectomy History of bilateral cataract extraction History of hysterectomy History of knee replacement right knee, with subsequent revision and later infection in replaced joint, treated with chronic doxycycline, followed by [facility] History of tonsillectomy Family History Father , at age 80 Cancer Bleeding disorder Diabetes Mother , at age 36 complication Other Seizure Denies family history of CAD (coronary artery disease) Clotting disorder Dementia Chronic kidney disease (CKD) Suicide Anesthesia complication Lung disease Stroke Social History Smoking and tobacco status: never smoked Second hand smoke exposure: No Alcohol intake: current Alcohol intake frequency: holidays/special occasions only Alcohol type: wine Adopted: No Caregiver/support person: No Lives independently: Yes Marital status: / Current occupational status: retired Data Anesthesia Cardiac Studies: Echocardiogram 11/04/21
[2022-08-06 08:38] VITALS: BP 97/59; PULSE 64; RESP 16; TEMP 36.1; O2SAT 99
[2022-08-06 08:52] VITALS: BP 136/75; PULSE 70; RESP 16; O2SAT 100
[2022-08-06 09:04] VITALS: BP 144/76; PULSE 70; RESP 16; O2SAT 98
--- NOTE | 2022-08-06 16:41 | ANE.PACU2 ---
Inpatient post-anesthesia follow up: Airway intact: Yes Vital signs: Temperature 97 F Pulse Rate 70 Respiratory Rate 16 Blood Pressure 144/76 Pulse Oximetry 98 Oxygen Delivery Me thod Room Air Oxygen Flow Rate Fraction of Inspir ed Oxygen Hydration adequate: Yes Nausea and vomiting: No Pain level: 2 Mental status: Baseline
== END 2022-08-06 09:25 | disposition home or self-care (01) ==
PROVIDERS: PCP Family Medicine; Visit Provider Surgery
PROC: 0DJ08ZZ Inspection of Upper Intestinal Tract, Via Natural or Artificial Opening Endoscopic (ICD-10-PCS; CPT 43235; principal; 2022-08-06 07:30)
PROC: 0DJD8ZZ Inspection of Lower Intestinal Tract, Via Natural or Artificial Opening Endoscopic (ICD-10-PCS; CPT 45378; 2022-08-06 07:30)
DX: K92.1 Melena (principal); D50.9 Iron deficiency anemia, unspecified; K57.30 Diverticulosis of large intestine without perforation or abscess without bleeding; K29.50 Unspecified chronic gastritis without bleeding; I48.91 Unspecified atrial fibrillation; I10 Essential (primary) hypertension; E78.5 Hyperlipidemia, unspecified; E11.42 Type 2 diabetes mellitus with diabetic polyneuropathy
CPT/HCPCS: 36416; 43239; 45378; 82962; 88305; 88342; G0121; J2704; J7030

== ENCOUNTER → 2022-08-07 13:01 | Outpatient (BNVA) | payer MEDICARE, OTHER, SELFPAY | PROVIDERS: PCP Family Medicine; Visit Provider Nurse Practitioner Family | DX: T81.31XD Disruption of external operation (surgical) wound, not elsewhere classified, subsequent encounter (principal); Y83.8 Other surgical procedures as the cause of abnormal reaction of the patient, or of later complication, without mention of misadventure at the time of the procedure; I96 Gangrene, not elsewhere classified | CPT/HCPCS: 11042; 99204; A6212 ==

== ENCOUNTER 2022-08-12 13:09 | Emergency (ER) | payer MEDICARE, OTHER, SELFPAY ==
[2022-08-12 13:16] VITALS: BP 115/66; PULSE 68; RESP 18; TEMP 36.5; O2SAT 98; BMI 21.6
--- NOTE | 2022-08-12 13:42 | XRR_ITS ---
PROCEDURE INFORMATION: Exam: XR Left Tibia and Fibula Exam date and time: 08/12/2022 2:00 PM Age: 81 years old Clinical indication: Injury or trauma; Fall; Blunt trauma; Lower leg; Left; Additional info: Fall injury with hematoma TECHNIQUE: Imaging protocol: Radiologic exam of the left tibia and fibula. Views: 2 views. COMPARISON: CR XR foot LT min 3V* [id number] 01/23/2020 8:38 AM FINDINGS: Bones/joints: Joint space narrowing and prominent osteophytes at the knee. The ankle is unremarkable. No acute fracture. Soft tissues: Vascular calcification is present. There is focal pretibial soft tissue swelling with a subcutaneous hematoma anterior to the tibia measuring 6.9 cm in length and 2.9 cm AP dimension. XR/XR tibia fibula LT 2V [id number] IMPRESSION: 1. No fracture. 2. Pretibial subcutaneous hematoma.
--- NOTE | 2022-08-12 13:43 | ED_ITS ---
HPI - Fall General: Chief Complaint: Fall Stated Complaint: fall, left leg pain Time Seen by Provider: 08/12/22 13:26 History of Present Illness: Patient is a 81-year-old female comes to the ED with left lower leg injury. Patient says earlier this morning she tripped over her walker and fell forward and hit the middle of her mendoza right on bar of walker. She denies going all the way to the ground and says she caught herself. Denies any head injury, headache or loss of consciousness. Patient is on Eliquis. She has a large hematoma to her mid mendoza region that she says is very painful. She is able to ambulate on left leg with minimal pain. Patient endorses some increased urinary frequency and is concerned for potential developing UTI. Denies any other symptoms. Denies any dysuria or hematuria. Associated symptoms-after fall: Denies abdominal pain, chest pain, headache(s), hematuria or neck pain Review of Systems Const: Denies: fever(s), chills or fatigue Eyes: Denies: change in vision or eye discomfort ENMT: Denies: throat pain, odynophagia, nasal discharge or nasal congestion Card: Denies: chest pain, palpitations, edema, swelling of feet/ankles, dyspnea on exertion or orthopnea Resp: Denies: dyspnea, productive cough or non-productive cough GI: Denies: abdominal pain, nausea, vomiting, diarrhea, constipation or hematochezia : Reports: urinary frequency (Increased urinary frequency); Denies: flank pain, dysuria or hematuria Musc: Reports: extremity pain (Left lower leg) and extremity swelling (Hematoma of left lower leg); Denies: neck pain or back pain Skin/Breast: Denies: rash or new lesions Neuro: Denies: headache(s), numbness in extremities or weakness in extremities PFS ED PFSH: Medical History Afib on digoxin, metoprolol, eliquis, follows with Dr Stephen Dumont disease follows with Benedict Bueno esophagus Chronic anticoagulation eliquis, secondary to atrial fibrillation 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, treated with chronic doxycycline, followed by Dr Catina CHÁVEZ in [place], and referred to specialist in [facility] Chronic venous insufficiency Diabetic peripheral neuropathy associated with type 2 diabetes mellitus diabetes resolved with weight loss, neuropathy persisted DM type 2 (diabetes mellitus, type 2) Improved after weight loss not on any antihyperglycemics Dyslipidemia Essential hypertension Incomplete emptying of bladder follows with Saez Primary osteoarthritis of left knee Recurrent UTI Urgency incontinence Valgus deformity, not elsewhere classified, left knee Surgical History Amputated toe of right foot H/O shoulder surgery History of appendectomy History of bilateral cataract extraction History of hysterectomy History of knee replacement right knee, with subsequent revision and later infection in replaced joint, treated with chronic doxycycline, followed by ID History of tonsillectomy Family History Father , at age 80 Cancer Bleeding disorder Diabetes Mother , at age 36 complication Other Seizure Denies family history of CAD (coronary artery disease) Clotting disorder Dementia Chronic kidney disease (CKD) Suicide Anesthesia complication Lung disease Stroke Social History Smoking and tobacco status: never smoked Second hand smoke exposure: No Alcohol intake: current Alcohol intake frequency: holidays/special occasions only Alcohol type: wine Adopted: No Caregiver/support person: No Lives independently: Yes Marital status: / Current occupational status: retired Physical Exam Const: COMMON NORMALS: patient oriented x3 HENMT: COMMON NORMALS: normocephalic HEAD & SCALP: normocephalic MOUTH: Normal oral and palatal mucosa present THROAT: posterior oropharynx normal and uvula midline Neck/C-Spine: COMMON NORMALS: supple GENERAL: Yes normal visual inspection Resp: COMMON NORMALS: normal respiratory effort, No retractions, No use of accessory muscles and clear to auscultation bilaterally AUSCULTATION: clear to auscultation bilaterally Cardio: COMMON NORMALS: regular rate, regular rhythm, S1 normal heart sound present, S2 normal heart sound present, No gallops present (Cardio), No clicks present (Cardio), No murmurs present (Cardio) and Peripheral pulses 2+ throughout RATE: regular rate RHYTHM: regular rhythm HEART SOUNDS: S1 normal heart sound present and S2 normal heart sound present PERIPHERAL PULSES: Peripheral pulses 2+ throughout GI: COMMON NORMALS: Normal to inspection, nondistended, normoactive bowel sounds present, Soft to palpation, non-tender and no masses PALPATION: Yes Soft to palpation : COMMON NORMALS: Yes no CVA tenderness BLADDER/KIDNEY EXAM: Yes no CVA tenderness Back/Pelvis: COMMON NORMALS: no CVA tenderness Extremity: COMMON NORMALS: normal to inspection NARRATIVE EXTREMITY EXAM: Left lower leg?large tender hematoma approximately 5 cm in diameter on mid anterior aspect of mendoza. No other visible deformity noted. Neurovascular intact distally. Neuro: COMMON NORMALS: patient oriented x3 GAIT: Yes Normal gait present Skin: GENERAL SKIN EXAM: dry skin Course Vital Signs: Vital signs: Vital Signs Temperature 97.7 F 08/12/22 13:16 Pulse Rate 68 08/12/22 13:16 Respiratory Rate 18 08/12/22 13:16 Blood Pressure 115/66 08/12/22 13:16 Pulse Oximetry 98 08/12/22 13:16 Oxygen Delivery Me thod 08/12/22 13:16 MDM - Fall Medical Decision Making Patient is a 81-year-old female comes to the ED with left lower leg injury. Patient says earlier this morning she tripped over her walker and fell forward and hit the middle of her mendoza right on bar of walker. She denies going all the way to the ground and says she caught herself. Denies any head injury, headache or loss of consciousness. Patient is on Eliquis. She has a large hematoma to her mid mendoza region that she says is very painful. She is able to ambulate on left leg with minimal pain. Patient endorses some increased urinary frequency and is concerned for potential developing UTI. Denies any other symptoms. Denies any dysuria or hematuria. Vitals are stable. Patient appears nontoxic and in no acute distress. She has a tender heme hematoma on anterior aspect of mendoza. Rest of exam is benign. X-ray of left mendoza showed no acute fractures. UA unremarkable. Patient was diagnosed with a hematoma on left lower leg and was stable for discharge home. Told to follow-up with her PCP within the next 2 to 3 days to reevaluate hematoma. Return to ED precautions given. Patient understood agree with plan. Lab Data I reviewed the patient's lab results. Radiology Impressions Tibia/Fibula X-Ray 08/12/22 13:42 IMPRESSION: 1. No fracture. 2. Pretibial subcutaneous hematoma. Laboratory Results Urine Color Yellow (Yellow) 08/12/22 13:54 Urine Appearance Clear (CLEAR) 08/12/22 13:54 Urine pH 5 (5-7) 08/12/22 13:54 Ur Specific [place] 1.015 (1.005-1.030) 08/12/22 13:54 Urine Protein Neg (Negative) 08/12/22 13:54 Urine Glucose (UA) Norm (Normal) 08/12/22 13:54 Urine Ketones Negative (Negative) 08/12/22 13:54 Urine Blood Neg (Negative) 08/12/22 13:54 Urine Nitrate Negative (Negative) 08/12/22 13:54 Urine Bilirubin Neg (Negative) 08/12/22 13:54 Urine Urobilinogen Norm mg/dL (Negative) 08/12/22 13:54 Ur Leukocyte Esterase Negative (Negative) 08/12/22 13:54 Discharge Plan Discharge Patient Disposition: Home Clinical Impression: Hematoma of left lower leg Condition: Stable Prescriptions: No Action calcium carb-vitamin D3-vit K2 500 mg calcium- 200 unit-90 mcg tablet 1 tab PO DAILY acetaminophen [Tylenol] 325 mg capsule 325 mg PO QID PRN (Reason: Pain) magnesium 250 mg tablet 250 mg PO DAILY doxycycline hyclate 100 mg capsule 100 mg PO BID 30 Days Qty: 60 12RF lisinopril 10 mg tablet 10 mg PO DAILY Qty: 90 3RF metoprolol tartrate 25 mg tablet 25 mg PO BID PRN (Reason: for tachycardia) Qty: 60 0RF loratadine 10 mg tablet 10 mg PO DAILY Qty: 14 0RF metoprolol succinate 25 mg tablet extended release 24 hr 25 mg PO DAILY Qty: 90 3RF atorvastatin 10 mg tablet 10 mg PO BEDTIME Qty: 90 1RF furosemide 40 mg tablet See Rx Instructions .ROUTE .COMPLEX Qty: 45 3RF Dose Instruction: TAKE 1 TABLET EVERY OTHER DAY Rx Instructions: TAKE 1 TABLET EVERY OTHER DAY Dakin's Solution 0.5 % solution 1 applic topical BID Qty: 473 0RF Rx Instructions: Pack wet to dry to right knee wounds BID ascorbic acid (vitamin C) [Vitamin C] 1,000 mg Tablet 1,000 mg PO BID digoxin 125 mcg (0.125 mg) tablet 125 mcg PO EVERY OTHER DAY Rx Instructions: Take 1 tab (125mcg) every other day Eliquis 5 mg tablet 5 mg PO BID Hold Instructions: Resume on 06/26/22. cyanocobalamin (vitamin B-12) [Vitamin B-12] 100 mcg Tablet 100 mcg PO DAILY methenamine hippurate 1 gram tablet 1 g PO BID Rx Instructions: TAKE 1 TABLET (1 GRAM) TWICE A DAY. TAKE 1000 MG OF VITAMIN C WITH EACH DOSE OF METHENAMINE galantamine 8 mg tablet 8 mg PO BID Rx Instructions: TAKE 1 TABLET BY MOUTH TWICE DAILY WITH THE MORNING AND EVENING MEAL Protonix 40 mg tablet,delayed release (DR/EC) 40 mg PO BID 42 Days Qty: 84 1RF Carafate 100 mg/mL suspension 1 g PO BID 28 Days Qty: 560 0RF Discharge Orders: Discharge ED (Routine); Ordered 08/12/22 Ordered By: Denis Kuhn Referrals: Rob Grant MD [Primary Care Provider] - Discharge Diet: Regular Discharge Activity: Increase activity as tolerated Activity Restrictions/Additional Instructions: Follow-up with medical provider as directed in the next 2 to 3 days for reevaluation. Rest, ice and elevate left leg. Wrap left leg with Fletcher wrap bandage to compress and help with swelling. Return to the ER or your medical provider if condition worsens. Please read and understand discharge instructions. Thank you for choosing [facility] for your healthcare needs today. Please realize this is an emergency room and that we are providing you with a medical screening exam and this may not be complete and all inclusive of all the testing and or work up that you may need to determine your ailment or severity of your illness. It is very important that you follow up as instructed or that you return to the Emergency Department should you have concerns or if your condition changes or worsens in any way. Coding Level of Care Code ED Technical Sourcing Recruiter for Inez Michelle
[2022-08-12] MEDS: HYDROcodone-acetaminophen 5-325 mg Tablet 1 TAB PO (13:46)
[2022-08-12 14:00] LABS: Add Urine Microscopic? NO; Charge for UA Resulting for Rev
[2022-08-12 14:16] LABS: Bilirubin Urine Neg (Negative); Blood Urine Neg (Negative); Glucose Urine UA Norm (Normal); Ketones Urine Negative (Negative); Leukocyte Esterase Urine Negative (Negative); Nitrate Urine Negative (Negative); Protein Urine Neg (Negative); Specific Gravity, Urine 1.015 (1.005-1.030); Urine Appearance Clear (CLEAR); Urine Color Yellow (Yellow); Urobilinogen Urine Norm (Negative); pH Urine 5 (5-7)
== END 2022-08-12 14:51 | disposition home or self-care (01) ==
PROVIDERS: Emergency Provider Physician Assistant; PCP Family Medicine
DX: S80.12XA Contusion of left lower leg, initial encounter (principal); Z79.01 Long term (current) use of anticoagulants; G30.9 Alzheimer's disease, unspecified; F02.80 Dementia in other diseases classified elsewhere, unspecified severity, without behavioral disturbance, psychotic disturbance, mood disturbance, and anxiety; E11.9 Type 2 diabetes mellitus without complications; E78.5 Hyperlipidemia, unspecified; I10 Essential (primary) hypertension; W01.198A Fall on same level from slipping, tripping and stumbling with subsequent striking against other object, initial encounter
CPT/HCPCS: 73590; 81003; 99283

== ENCOUNTER → 2022-08-14 11:15 | Outpatient (BNVA) | payer MEDICARE, OTHER, SELFPAY | PROVIDERS: PCP Family Medicine; Visit Provider Nurse Practitioner Family | DX: T81.31XD Disruption of external operation (surgical) wound, not elsewhere classified, subsequent encounter (principal); Y83.8 Other surgical procedures as the cause of abnormal reaction of the patient, or of later complication, without mention of misadventure at the time of the procedure; I96 Gangrene, not elsewhere classified | CPT/HCPCS: 11042; A6212 ==

== ENCOUNTER → 2022-08-19 16:43 | Outpatient (BNVA) | payer MEDICARE, OTHER, SELFPAY | PROVIDERS: PCP Family Medicine; Visit Provider Surgery | DX: Z09 Encounter for follow-up examination after completed treatment for conditions other than malignant neoplasm (principal) | CPT/HCPCS: 99212 ==

== ENCOUNTER → 2022-08-21 11:05 | Outpatient (BNVA) | payer MEDICARE, OTHER, SELFPAY | PROVIDERS: PCP Family Medicine; Visit Provider Nurse Practitioner Family | DX: T81.31XD Disruption of external operation (surgical) wound, not elsewhere classified, subsequent encounter (principal); Y83.8 Other surgical procedures as the cause of abnormal reaction of the patient, or of later complication, without mention of misadventure at the time of the procedure | CPT/HCPCS: 97597; A6212 ==

== ENCOUNTER → 2022-08-28 11:07 | Outpatient (BNVA) | payer MEDICARE, OTHER, SELFPAY | PROVIDERS: PCP Family Medicine; Visit Provider Nurse Practitioner Family | DX: T81.89XD Other complications of procedures, not elsewhere classified, subsequent encounter (principal); Y83.8 Other surgical procedures as the cause of abnormal reaction of the patient, or of later complication, without mention of misadventure at the time of the procedure | CPT/HCPCS: 11042 ==

== ENCOUNTER → 2022-09-04 11:12 | Outpatient (BNVA) | payer MEDICARE, OTHER, SELFPAY | PROVIDERS: PCP Family Medicine; Visit Provider Nurse Practitioner Family | DX: T81.89XD Other complications of procedures, not elsewhere classified, subsequent encounter (principal); Y83.8 Other surgical procedures as the cause of abnormal reaction of the patient, or of later complication, without mention of misadventure at the time of the procedure | CPT/HCPCS: 11042; A6212 ==

== ENCOUNTER → 2022-09-11 10:53 | Outpatient (BNVA) | payer MEDICARE, OTHER, SELFPAY | PROVIDERS: PCP Family Medicine; Visit Provider Nurse Practitioner Family | DX: T81.31XD Disruption of external operation (surgical) wound, not elsewhere classified, subsequent encounter (principal); Y83.8 Other surgical procedures as the cause of abnormal reaction of the patient, or of later complication, without mention of misadventure at the time of the procedure | CPT/HCPCS: 11042 ==

== ENCOUNTER → 2022-09-18 09:48 | Outpatient (BNVA) | payer MEDICARE, OTHER, SELFPAY | PROVIDERS: PCP Family Medicine; Visit Provider Nurse Practitioner Family | DX: E11.622 Type 2 diabetes mellitus with other skin ulcer (principal); I96 Gangrene, not elsewhere classified; L97.311 Non-pressure chronic ulcer of right ankle limited to breakdown of skin | CPT/HCPCS: 97597 ==

== ENCOUNTER → 2022-10-02 10:54 | Outpatient (BNVA) | payer MEDICARE, OTHER, SELFPAY | PROVIDERS: PCP Family Medicine; Visit Provider Nurse Practitioner Family | DX: T81.31XD Disruption of external operation (surgical) wound, not elsewhere classified, subsequent encounter (principal); Y83.8 Other surgical procedures as the cause of abnormal reaction of the patient, or of later complication, without mention of misadventure at the time of the procedure | CPT/HCPCS: 97597; A6212 ==

== ENCOUNTER → 2022-10-16 10:58 | Outpatient (BNVA) | payer MEDICARE, OTHER, SELFPAY | PROVIDERS: PCP Family Medicine; Visit Provider Nurse Practitioner Family | DX: T81.31XD Disruption of external operation (surgical) wound, not elsewhere classified, subsequent encounter (principal); Y83.8 Other surgical procedures as the cause of abnormal reaction of the patient, or of later complication, without mention of misadventure at the time of the procedure | CPT/HCPCS: 11042 ==

== ENCOUNTER → 2022-10-28 14:22 | Outpatient (BNVA) | payer MEDICARE, OTHER, SELFPAY | PROVIDERS: PCP Family Medicine; Visit Provider Specialist | DX: G30.9 Alzheimer's disease, unspecified (principal); F02.80 Dementia in other diseases classified elsewhere, unspecified severity, without behavioral disturbance, psychotic disturbance, mood disturbance, and anxiety | CPT/HCPCS: 96116; 99214 ==

== ENCOUNTER → 2022-10-30 10:20 | Outpatient (BNVA) | payer MEDICARE, OTHER, SELFPAY | PROVIDERS: PCP Family Medicine; Visit Provider Nurse Practitioner Family | DX: T81.31XD Disruption of external operation (surgical) wound, not elsewhere classified, subsequent encounter (principal); Y83.8 Other surgical procedures as the cause of abnormal reaction of the patient, or of later complication, without mention of misadventure at the time of the procedure; I96 Gangrene, not elsewhere classified | CPT/HCPCS: 11042; A6021 ==

== ENCOUNTER → 2022-11-05 10:01 | Outpatient (BNVA) | payer MEDICARE, OTHER, SELFPAY | PROVIDERS: PCP Family Medicine; Visit Provider Urology | DX: N39.0 Urinary tract infection, site not specified (principal) | CPT/HCPCS: 81003; 99213 ==

== ENCOUNTER → 2022-11-20 10:16 | Outpatient (BNVA) | payer MEDICARE, OTHER, SELFPAY | PROVIDERS: PCP Family Medicine; Visit Provider Nurse Practitioner Family | DX: T81.31XD Disruption of external operation (surgical) wound, not elsewhere classified, subsequent encounter (principal); Y83.8 Other surgical procedures as the cause of abnormal reaction of the patient, or of later complication, without mention of misadventure at the time of the procedure; I96 Gangrene, not elsewhere classified | CPT/HCPCS: 97597; A6219 ==

== ENCOUNTER → 2022-12-11 10:09 | Outpatient (BNVA) | payer MEDICARE, OTHER, SELFPAY | PROVIDERS: PCP Family Medicine; Visit Provider Nurse Practitioner Family | DX: T81.31XD Disruption of external operation (surgical) wound, not elsewhere classified, subsequent encounter (principal); Y83.8 Other surgical procedures as the cause of abnormal reaction of the patient, or of later complication, without mention of misadventure at the time of the procedure | CPT/HCPCS: 97597 ==

== ENCOUNTER → 2022-12-25 09:57 | Outpatient (BNVA) | payer MEDICARE, OTHER, SELFPAY | PROVIDERS: PCP Family Medicine; Visit Provider Nurse Practitioner Family | DX: T81.31XD Disruption of external operation (surgical) wound, not elsewhere classified, subsequent encounter (principal); Y83.8 Other surgical procedures as the cause of abnormal reaction of the patient, or of later complication, without mention of misadventure at the time of the procedure; I96 Gangrene, not elsewhere classified | CPT/HCPCS: 11042 ==

== ENCOUNTER 2023-01-07 12:25 | Emergency (ER) | payer MEDICARE, OTHER, SELFPAY ==
[2023-01-07 12:31] VITALS: BP 149/79; PULSE 73; RESP 16; TEMP 36.6; O2SAT 96; BMI 22.3
[2023-01-07 14:06] VITALS: BP 151/70; PULSE 63; O2SAT 99
--- NOTE | 2023-01-07 14:16 | XR_ITS ---
WS: [id number] Exam: XR chest 1V portable [id number] Date/Time of Exam: 01/07/2023 2:18 PM Reason For Exam: chf Comparison 01/30/2020. The lungs are hyperinflated and clear. Cardiomediastinal silhouette is unremarkable. No pleural effus ions. Bony structures are intact. Bilateral reverse shoulder prostheses noted. IMPRESSION: 1. Pulmonary hyperinflation. No acute process.
--- NOTE | 2023-01-07 14:28 | ED_ITS ---
HPI - Extremity Problem General: Chief complaint: Extremity Injury, Lower Stated complaint: legs are swelling Time Seen by Provider: 01/07/23 13:59 Source: patient Mode of arrival: ambulatory History of Present Illness: 82-year-old female who presents to the emergency room with complaints of swelling the legs. He has had problems in the past with swelling in the lower extremities she is on Eliquis because of atrial fibrillation. Currently does takes Lasix daily. She says frequently in the summer her legs tend to swell mor e no recent changes in medications no chest pain no pain in her legs other than just the swelling discomfort. MD Complaint: extremity swelling Associated symptoms: Deny chest pain, fever(s) or rash Review of Systems Const: Denies: fever(s), chills, body aches, change in appetite, fatigue or malaise ENMT: Denies: throat pain, ear or mastoid pain, nasal discharge or nasal congestion Card: Reports: edema; Denies: chest pain, dyspnea on exertion or orthopnea Resp: Denies: dyspnea, productive cough or non-productive cough GI: Denies: abdominal pain, nausea, vomiting, hematemesis, coffee ground emesis, diarrhea, constipation, bloating, hematochezia or melena : Denies: flank pain, difficulty voiding, dysuria, urinary frequency or urinary urgency Skin/Breast: Denies: rash or pruritus PFS ED PFSH: Medical History Afib on digoxin, metoprolol, eliquis, follows with Dr Stephen Dumont disease follows with Benedict Bueno esophagus Chronic anticoagulation eliquis, secondary to atrial fibrillation 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, treated with chronic doxycycline, followed by Dr Catina CHÁVEZ in [place], and referred to specialist in [facility] Chronic venous insufficiency Diabetic peripheral neuropathy associated with type 2 diabetes mellitus diabetes resolved with weight loss, neuropathy persisted DM type 2 (diabetes mellitus, type 2) Improved after weight loss not on any antihyperglycemics Dyslipidemia Essential hypertension Incomplete emptying of bladder follows with Saez Primary osteoarthritis of left knee Recurrent UTI Urgency incontinence Valgus deformity, not elsewhere classified, left knee Surgical History Amputated toe of right foot H/O shoulder surgery History of appendectomy History of bilateral cataract extraction History of hysterectomy History of knee replacement right knee, with subsequent revision and later infection in replaced joint, treated with chronic doxycycline, followed by ID History of tonsillectomy Family History Father , at age 80 Cancer Bleeding disorder Diabetes Mother , at age 36 complication Other Seizure Denies family history of CAD (coronary artery disease) Clotting disorder Dementia Chronic kidney disease (CKD) Suicide Anesthesia complication Lung disease Stroke Social History Smoking and tobacco status: never smoked Second hand smoke exposure: No Alcohol intake: current Alcohol intake frequency: holidays/special occasions only Alcohol type: wine Substance/Drug Use: never Adopted: No Caregiver/support person: No Lives independently: Yes Marital status: / Current occupational status: retired Physical Exam Const: COMMON NORMALS: no acute distress ORIENTATION/CONSCIOUSNESS: Yes awake, Yes oriented to person, Yes oriented to place and Yes oriented to time HENMT: COMMON NORMALS: normocephalic, atraumatic and hearing grossly normal bilaterally HEAD & SCALP: normocephalic and atraumatic Resp: COMMON NORMALS: normal respiratory effort, No retractions, No use of accessory muscles and clear to auscultation bilaterally AUSCULTATION: clear to auscultation bilaterally Cardio: COMMON NORMALS: regular rate, regular rhythm and No murmurs present (Cardio) RATE: regular rate RHYTHM: regular rhythm GI: COMMON NORMALS: Soft to palpation and No hepatosplenomegaly present AUSCULTATION: Yes normoactive bowel sounds PALPATION: Yes Soft to palpation, No Tenderness to palpation present (GI), No Guarding due to palpation present (GI) and Yes No hepatosplenomegaly present Extremity: COMMON NORMALS: normal to inspection, capillary refill normal and no calf tenderness Neuro: SENSORIUM/ORIENTATION: Yes oriented to person, Yes oriented to place and Yes oriented to time Skin: COMMON NORMALS: no rashes or lesions noted GENERAL SKIN EXAM: no rashes or lesions noted Course Vital Signs: Vital signs: Vital Signs Temperature 97.8 F 01/07/23 12:31 Pulse Rate 71 01/07/23 17:26 Respiratory Rate 16 01/07/23 12:31 Blood Pressure 138/87 01/07/23 17:26 Pulse Oximetry 98 01/07/23 17:26 Oxygen Delivery Me thod Room Air 01/07/23 16:30 MDM - Extremity (Nontraumatic) Medical Decision Making Lower extremity edema negative Homans no sign of PE at this time. No sign of DVT. Improved with diuresis no sign of decompensated congestive heart failure increase her Lasix to daily. Also on potassium supplement checkup with her primary care doctor within the next 3 to 5 days to reevaluate including repeat laboratory test. Medical Records I reviewed the patient's medical records. Lab Data I reviewed the patient's lab results. 01/07/23 14:15 01/07/23 14:15 Laboratory Results WBC 6.56 10^3/uL (3.29-11.43) 01/07/23 14:15 RBC 3.98 10^6/uL (3.85-5.65) 01/07/23 14:15 Hgb 11.00 g/dL (11.27-16.99) L 01/07/23 14:15 Hct 35.2 % (36-47) L 01/07/23 14:15 MCV 88.4 fl (85-98) 01/07/23 14:15 MCH 27.6 pg (27-33) 01/07/23 14:15 MCHC 31.3 g/dL (30-55) 01/07/23 14:15 RDW 14.6 % (12.1-15.1) 01/07/23 14:15 Plt Count 305 10^3/cmm (157-399) 01/07/23 14:15 MPV 10.1 fL (7.4-10.4) 01/07/23 14:15 Neut % (Auto) 76.0 % 01/07/23 14:15 Lymph % (Auto) 13.6 % 01/07/23 14:15 [place] % (Auto) 6.3 % 01/07/23 14:15 Eos % (Auto) 3.0 % 01/07/23 14:15 Baso % (Auto) 0.6 % 01/07/23 14:15 Neut # (Auto) 4.99 10^3/uL (1.8-7.7) 01/07/23 14:15 Lymph # (Auto) 0.9 10^3/uL (0.8-4.8) 01/07/23 14:15 [place] # (Auto) 0.4 10^3/uL (0.2-0.9) 01/07/23 14:15 Eos # (Auto) 0.2 10^3/uL (0.0-0.8) 01/07/23 14:15 Baso # (Auto) 0.0 10^3/uL (0.0-0.1) 01/07/23 14:15 Nucleated RBC % (auto) 0 % 01/07/23 14:15 Nucleated RBCs # 0.0 /100WBC 01/07/23 14:15 Sodium 139 mmol/L (136-145) 01/07/23 14:15 Potassium 3.6 mmol/L (3.5-5.1) 01/07/23 14:15 Chloride 99 mmol/L (98-107) 01/07/23 14:15 Carbon Dioxide 27 mmol/L (22-29) 01/07/23 14:15 Anion Gap 16.6 (5-19) 01/07/23 14:15 BUN 20 mg/dL (8-23) 01/07/23 14:15 Creatinine 0.6 mg/dL (0.5-0.9) 01/07/23 14:15 GFR Calculation Not Reportable 01/07/23 14:15 Glucose 157 mg/dL (65-115) H 01/07/23 14:15 Calculated Osmolality 294 mOsm/kg (285-295) 01/07/23 14:15 Calcium 9.0 mg/dL (8.5-10.5) 01/07/23 14:15 Total Bilirubin 0.3 mg/dL (0.15-1.2) 01/07/23 14:15 AST 28 U/L (0-32) 01/07/23 14:15 ALT 25 U/L (0-33) 01/07/23 14:15 Alkaline Phosphatase 429 U/L (35-105) H 01/07/23 14:15 Total Protein 7.1 g/dL (6.6-8.7) 01/07/23 14:15 Albumin 4.2 g/dL (3.5-5.2) 01/07/23 14:15 Globulin 2.9 g/dL (1.3-4.6) 01/07/23 14:15 Urine Color Yellow (Yellow) 01/07/23 13:53 Urine Appearance Clear (CLEAR) 01/07/23 13:53 Urine pH 5 (5-7) 01/07/23 13:53 Ur Specific [place] 1.005 (1.005-1.030) 01/07/23 13:53 Urine Protein Neg (Negative) 01/07/23 13:53 Urine Glucose (UA) Norm (Normal) 01/07/23 13:53 Urine Ketones Negative (Negative) 01/07/23 13:53 Urine Blood Neg (Negative) 01/07/23 13:53 Urine Nitrate Negative (Negative) 01/07/23 13:53 Urine Bilirubin Neg (Negative) 01/07/23 13:53 Prot Sulfosalicylic Acd Cancelled 01/07/23 13:30 Urine Urobilinogen Norm mg/dL (Negative) 01/07/23 13:53 Ur Leukocyte Esterase Negative (Negative) 01/07/23 13:53 Discharge Plan Discharge Patient Disposition: Home Clinical Impression: Lower extremity edema Condition: Stable Prescriptions: New furosemide 40 mg tablet 40 mg PO DAILY Qty: 30 0RF potassium chloride 20 mEq tablet,ER particles/crystals 20 meq PO DAILY Qty: 10 0RF Discontinued furosemide 40 mg tablet 40 mg PO EVERY OTHER DAY No Action calcium carb-vitamin D3-vit K2 500 mg calcium- 200 unit-90 mcg tablet 1 tab PO DAILY acetaminophen [Tylenol] 325 mg capsule 325 mg PO BID magnesium 250 mg tablet 250 mg PO DAILY galantamine 8 mg tablet 8 mg PO BID Qty: 180 3RF memantine [Namenda] 10 mg tablet 10 mg PO BID Qty: 180 3RF doxycycline hyclate 100 mg capsule 100 mg PO BID 30 Days Qty: 60 12RF lisinopril 10 mg tablet 10 mg PO DAILY Qty: 90 3RF methenamine hippurate 1 gram tablet 1 g PO BID Qty: 180 3RF Rx Instructions: TAKE 1 TABLET (1 GRAM) TWICE A DAY. TAKE 1000 MG OF VITAMIN C WITH EACH DOSE OF METHENAMINE loratadine 10 mg tablet 10 mg PO DAILY Qty: 14 0RF atorvastatin 10 mg tablet 10 mg PO BEDTIME Qty: 90 1RF Dakin's Solution 0.5 % solution 1 applic topical BID Qty: 473 0RF Rx Instructions: Pack wet to dry to right knee wounds BID metoprolol succinate 25 mg tablet extended release 24 hr 25 mg PO DAILY Qty: 90 0RF ascorbic acid (vitamin C) [Vitamin C] 1,000 mg Tablet 1,000 mg PO BID Eliquis 5 mg tablet 5 mg PO BID Hold Instructions: Resume on 06/26/22. cyanocobalamin (vitamin B-12) [Vitamin B-12] 100 mcg Tablet 100 mcg PO DAILY Protonix 40 mg tablet,delayed release (DR/EC) 40 mg PO BID PRN (Reason: Acid Reflux) digoxin 125 mcg (0.125 mg) tablet 0.125 mcg PO EVERY OTHER DAY Discharge Orders: Discharge ED (Routine); Ordered 01/07/23 Ordered By: Jose Rafael Lopez Referrals: Rob Grant MD [Primary Care Provider] - Discharge Diet: Usual diet Discharge Activity: Increase activity as tolerated Patient Instructions: Opioid Safety, Pain Management Activity Restrictions/Additional Instructions: You are seen today for lower extremity edema recommend you increase your Lasix to daily. You should also add potassium 20 mill equivalents once daily in 4 to 5 days recheck with your primary care doctor. Coding Level of Care Code ED Can Sealer for Inez Michelle
[2023-01-07 14:30] VITALS: BP 130/67; PULSE 68; O2SAT 98
[2023-01-07] MEDS: FUROsemide 10 mg/mL SDV 4mL 40 MG IVP (14:56)
[2023-01-07 15:00] VITALS: BP 161/72; PULSE 64; O2SAT 98
[2023-01-07 15:03] LABS: Basophils % 0.6 %; Eosinophils # 0.2 10^3/uL (0.0-0.8); Hematocrit 35.2 % (36-47); Lymphocytes # 0.9 10^3/uL (0.8-4.8); Lymphocytes % 13.6 %; Mean Corpuscular HGB Conc 31.3 g/dL (30-55); Mean Corpuscular Hemoglobin 27.6 pg (27-33); Mean Corpuscular Volume 88.4 fl (85-98); Mean Platelet Volume 10.1 fL (7.4-10.4); Monocytes # 0.4 10^3/uL (0.2-0.9); Monocytes % 6.3 %; Neutrophils # 4.99 10^3/uL (1.8-7.7); Nucleated Red Blood Cells % 0 %; Platelet Count 305 10^3/cmm (157-399); Red Blood Count 3.98 10^6/uL (3.85-5.65); Red Cell Distribution Width 14.6 % (12.1-15.1); White Blood Count 6.56 10^3/uL (3.29-11.43)
[2023-01-07 15:24] LABS: Alanine Aminotransferase 25 U/L (0-33); Albumin Level 4.2 g/dL (3.5-5.2); Alkaline Phosphatase 429 U/L (35-105); Anion Gap 16.6 (5-19); Aspartate Amino Transferase 28 U/L (0-32); Blood Urea Nitrogen 20 mg/dL (8-23); Carbon Dioxide 27 mmol/L (22-29); Chloride 99 mmol/L (98-107); Globulin 2.9 g/dL (1.3-4.6); Glucose 157 mg/dL (65-115); Osmolality Calculated 294 mOsm/kg (285-295); Potassium 3.6 mmol/L (3.5-5.1); Sodium 139 mmol/L (136-145); Total Bilirubin 0.3 mg/dL (0.15-1.2); Total Protein 7.1 g/dL (6.6-8.7)
[2023-01-07 15:43] LABS: Add Urine Microscopic? NO; Charge for UA Resulting for Rev
[2023-01-07 15:49] LABS: Bilirubin Urine Neg (Negative); Blood Urine Neg (Negative); Glucose Urine UA Norm (Normal); Ketones Urine Negative (Negative); Leukocyte Esterase Urine Negative (Negative); Nitrate Urine Negative (Negative); Protein Urine Neg (Negative); Specific Gravity, Urine 1.005 (1.005-1.030); Urine Appearance Clear (CLEAR); Urine Color Yellow (Yellow); Urobilinogen Urine Norm (Negative); pH Urine 5 (5-7)
[2023-01-07 16:30] VITALS: BP 138/87; PULSE 73; O2SAT 99
[2023-01-07 17:26] VITALS: BP 138/87; PULSE 71; O2SAT 98
== END 2023-01-07 17:28 | disposition home or self-care (01) ==
PROVIDERS: Emergency Provider Family Medicine; PCP Family Medicine
DX: R60.0 Localized edema (principal); G30.9 Alzheimer's disease, unspecified; F02.80 Dementia in other diseases classified elsewhere, unspecified severity, without behavioral disturbance, psychotic disturbance, mood disturbance, and anxiety; E11.9 Type 2 diabetes mellitus without complications; E78.5 Hyperlipidemia, unspecified; I10 Essential (primary) hypertension
CPT/HCPCS: 71045; 80053; 81003; 85025; 96374; 99284; J1940

== ENCOUNTER → 2023-01-08 10:16 | Outpatient (BNVA) | payer MEDICARE, OTHER, SELFPAY | PROVIDERS: PCP Family Medicine; Visit Provider Nurse Practitioner Family | DX: T81.31XD Disruption of external operation (surgical) wound, not elsewhere classified, subsequent encounter (principal); Y83.8 Other surgical procedures as the cause of abnormal reaction of the patient, or of later complication, without mention of misadventure at the time of the procedure | CPT/HCPCS: 97597; A6212 ==

== ENCOUNTER → 2023-01-22 10:17 | Outpatient (BNVA) | payer MEDICARE, OTHER, SELFPAY | PROVIDERS: PCP Family Medicine; Visit Provider Nurse Practitioner Family | DX: I96 Gangrene, not elsewhere classified (principal); T81.31XD Disruption of external operation (surgical) wound, not elsewhere classified, subsequent encounter; Y83.8 Other surgical procedures as the cause of abnormal reaction of the patient, or of later complication, without mention of misadventure at the time of the procedure | CPT/HCPCS: 11042; A6212 ==

== ENCOUNTER → 2023-02-05 10:51 | Outpatient (BNVA) | payer MEDICARE, OTHER, SELFPAY | PROVIDERS: PCP Family Medicine; Visit Provider Nurse Practitioner Family | DX: T81.31XD Disruption of external operation (surgical) wound, not elsewhere classified, subsequent encounter (principal); Y83.8 Other surgical procedures as the cause of abnormal reaction of the patient, or of later complication, without mention of misadventure at the time of the procedure; I96 Gangrene, not elsewhere classified | CPT/HCPCS: 11044; A6212 ==

== ENCOUNTER → 2023-02-19 10:40 | Outpatient (BNVA) | payer MEDICARE, OTHER, SELFPAY | PROVIDERS: PCP Family Medicine; Visit Provider Nurse Practitioner Family | DX: T81.31XD Disruption of external operation (surgical) wound, not elsewhere classified, subsequent encounter (principal); Y83.8 Other surgical procedures as the cause of abnormal reaction of the patient, or of later complication, without mention of misadventure at the time of the procedure | CPT/HCPCS: 11042; A6212 ==

== ENCOUNTER 2023-02-24 13:47 | Inpatient (IN) | payer MEDICARE, OTHER, SELFPAY ==
[2023-02-24 13:53] VITALS: PULSE 58; RESP 18; TEMP 36.8; O2SAT 94; BMI 21.6
--- NOTE | 2023-02-24 13:53 | XRR_ITS ---
PROCEDURE INFORMATION: Exam: XR Left Knee Exam date and time: 02/24/2023 2:02 PM Age: 82 years old Clinical indication: Injury or trauma; Fall; Blunt trauma; Knee; Left; Additional info: Trauma/injury and pain TECHNIQUE: Imaging protocol: Radiologic exam of the left knee. Views: 4 or more views. COMPARISON: CR XR tibia fibula LT 2V [id number] 08/12/2022 2:00 PM FINDINGS: Bones/joints: Large knee effusion. Proximal tibia and fibula are intact. There is mild medial subluxation of the distal femur relative to the proximal tibia. Marked medial femorotibial and mild lateral femorotibial compartment joint space narrowing. Tricompartmental osteophytes. Cortical step-off visible on the frontal radiograph at the medial aspect of the distal femoral metaphysis may represent fracture or superimposed large patellofemoral osteophytes. Soft tissues: Anterolateral soft tissue edema at the level of the distal femur. Vasculature: Vascular calcification is present. XR/XR knee LT 4V [id number] IMPRESSION: 1. Fracture versus superimposed large patellofemoral osteophytes in the distal medial femoral metaphysis. Recommend CT for confirmation. 2. Large joint effusion. 3. Tricompartmental osteoarthritis.
--- NOTE | 2023-02-24 13:54 | ED_ITS ---
HPI - Extremity Injury (Lower) General: Chief Complaint: Fall Stated Complaint: Knee Pain Time Seen by Provider: 02/24/23 13:53 History of Present Illness: 82-year-old female presents emergency department via EMS with complaints of left knee pain. She states that she has a family member that is mentally handicapped that she helps at her home and the family member lost her balance this morning falling onto the patient. She states that she had immediate 10 out of 10 pain with difficulty standing on her left knee. She states she does not have any numbness or tingling to the extremity. She states she does normally have 4+ bilateral lower extremity pitting edema and is a diabetic. 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, treated with chronic doxycycline, followed by Dr Catina CHÁVEZ in [place], and referred to specialist in [facility] Chronic venous insufficiency Diabetic peripheral neuropathy associated with type 2 diabetes mellitus diabetes resolved with weight loss, neuropathy persisted DM type 2 (diabetes mellitus, type 2) Improved after weight loss not on any antihyperglycemics Dyslipidemia Essential hypertension Incomplete emptying of bladder follows with [facility] Primary osteoarthritis of left knee Recurrent UTI Urgency incontinence Valgus deformity, not elsewhere classified, left knee Surgical History Amputated toe of right foot H/O shoulder surgery History of appendectomy History of bilateral cataract extraction History of hysterectomy History of knee replacement right knee, with subsequent revision and later infection in replaced joint, treated with chronic doxycycline, followed by [facility] History of tonsillectomy Family History Father , at age 80 Cancer Bleeding disorder Diabetes Mother , at age 36 complication Other Seizure Denies family history of CAD (coronary artery disease) Clotting disorder Dementia Chronic kidney disease (CKD) Suicide Anesthesia complication Lung disease Stroke Social History Smoking and tobacco/nicotine status: never used tobacco/nicotine Second hand smoke exposure: No Alcohol intake: current Alcohol intake frequency: holidays/special occasions only Alcohol type: wine Substance/Drug Use: never Adopted: No Caregiver/support person: No Lives independently: Yes Marital status: / Current occupational status: retired Physical Exam Narrative: EXAM NARRATIVE: Constitutional: the patient appears well nourished and with normal developement. Vital signs reviewed as documented. HENMT: Normocephalic, atraumatic. Extermal ears with normal appearance without drainage. Nose without drainage, normal appearance. Mucus membranes moist. Neck is supple, No jugular venous distension, trachea is midline, no appreciable carotid bruits. No lymphadenopathy. No meningeal signs. Flexion, extension and lateral rotation is without pain. Eyes: Pupils are equal, round, reactive to light and accomidation. No scleral icterus. Extra-ocular movement are intact. Thorax is symmetrical and with equal rise and fall with respirations. Resp: Lungs are clear to auscultation. No wheezes, rales, crackles or ronchi at pesent. Cardio: Regular rate and rhythm. Positive S1, S2. No appreciable murmurs, rubs or gallops. GI: Abdominal exam reveals normal bowel sounds to all quadrants. No organomegaly. No obvious palpable masses noted. No hepatomegaly appreciated. Soft, nontender to palpation. Extremity: Extremities are non-edematous and both femoral and pedal pulses are 2+ and equal bilaterally. Left knee is tender to palpation with increased pain with attempts to flex or extend the left knee., sensation in all extremities. Neuro: Alert and oriented x4, person, place, time and situation. Cranial nerves II through XII are grossly intact, there is no focal neurological deficits that I can appreciate at present. Motor strength in the upper and lower extremities are equal and bilateral 5/5. Psych: Cooperative, calm, normal thought process, appropriate judgment. Skin: No lesions, rashes. No gross abnormalities noted. Back: Symmetrical, no obvious deformity, No CVA tenderness Course Vital Signs: Vital signs: Vital Signs Temperature 98.7 F 02/27/23 07:59 Pulse Rate 83 02/27/23 09:35 Respiratory Rate 14 02/27/23 12:59 Blood Pressure 129/68 02/27/23 07:59 Pulse Oximetry 95 02/27/23 09:35 Oxygen Delivery Me thod Room Air 02/27/23 09:35 Oxygen Flow Rate 0 02/25/23 22:13 MDM - Extremity Injury (Lower) Medical Decision Making Physical exam completed and documented, I will obtain radiographic examination, CBC CMP PT PTT INR to evaluate for fracture or injury of the left lower extremity and will treat accordingly. Medical Records I reviewed the patient's medical records. Lab Data I reviewed the patient's lab results. 02/27/23 05:11 02/27/23 05:[address] 02/24/23 14:55 IMPRESSION: Fracture of the distal medial femoral metaphysis extending to the intercondylar fossa on the coronal images and extending to the inferior patellofemoral joint space margin on the axial images, with associated mild cortical deformity or offset along the medial margin. Knee X-Ray 02/25/23 17:26 IMPRESSION: 1. Distal lateral femoral orthopedic plate in place. 2. Severe tricompartmental osteoarthritis of the knee. 3. Scattered vascular calcifications. 4. Postsurgical soft tissue findings about the lower extremity. Laboratory Results WBC 6.97 10^3/uL (3.29-11.43) 02/24/23 16:05 RBC 3.77 10^6/uL (3.85-5.65) L 02/24/23 16:05 Hgb 10.80 g/dL (11.27-16.99) L 02/24/23 16:05 Hct 34.2 % (36-47) L 02/24/23 16:05 MCV 90.7 fl (85-98) 02/24/23 16:05 MCH 28.6 pg (27-33) 02/24/23 16:05 MCHC 31.6 g/dL (30-55) 02/24/23 16:05 RDW 15.0 % (12.1-15.1) 02/24/23 16:05 Plt Count 254 10^3/cmm (157-399) 02/24/23 16:05 MPV 9.4 fL (7.4-10.4) 02/24/23 16:05 Neut % (Auto) 80.1 % 02/24/23 16:05 Lymph % (Auto) 10.5 % 02/24/23 16:05 [place] % (Auto) 6.9 % 02/24/23 16:05 Eos % (Auto) 1.7 % 02/24/23 16:05 Baso % (Auto) 0.4 % 02/24/23 16:05 Neut # (Auto) 5.58 10^3/uL (1.8-7.7) 02/24/23 16:05 Lymph # (Auto) 0.7 10^3/uL (0.8-4.8) L 02/24/23 16:05 [place] # (Auto) 0.5 10^3/uL (0.2-0.9) 02/24/23 16:05 Eos # (Auto) 0.1 10^3/uL (0.0-0.8) 02/24/23 16:05 Baso # (Auto) 0.0 10^3/uL (0.0-0.1) 02/24/23 16:05 Nucleated RBC % (auto) 0 % 02/24/23 16:05 Nucleated RBCs # 0.0 /100WBC 02/24/23 16:05 PT 14.60 SECONDS (12.1-14.9) 02/24/23 16:05 INR 1.11 (0.8-1.2) 02/24/23 16:05 APTT 28.2 SECONDS (23.9-36.7) 02/24/23 16:05 Sodium 140 mmol/L (136-145) 02/24/23 16:05 Potassium 4.1 mmol/L (3.5-5.1) 02/24/23 16:05 Chloride 106 mmol/L (98-107) 02/24/23 16:05 Carbon Dioxide 25 mmol/L (22-29) 02/24/23 16:05 Anion Gap 13.1 (5-19) 02/24/23 16:05 BUN 20 mg/dL (8-23) 02/24/23 16:05 Creatinine 0.6 mg/dL (0.5-0.9) 02/24/23 16:05 GFR Calculation Not Reportable 02/24/23 16:05 Glucose 102 mg/dL (65-115) 02/24/23 16:05 Calculated Osmolality 293 mOsm/kg (285-295) 02/24/23 16:05 Calcium 8.9 mg/dL (8.5-10.5) 02/24/23 16:05 Total Bilirubin 0.4 mg/dL (0.15-1.2) 02/24/23 16:05 AST 18 U/L (0-32) 02/24/23 16:05 ALT 13 U/L (0-33) 02/24/23 16:05 Alkaline Phosphatase 162 U/L (35-105) H 02/24/23 16:05 Total Protein 6.3 g/dL (6.6-8.7) L 02/24/23 16:05 Albumin 3.6 g/dL (3.5-5.2) 02/24/23 16:05 Globulin 2.7 g/dL (1.3-4.6) 02/24/23 16:05 All radiology interpretation(s) finalized by discharge Discharge Plan Discharge Patient Disposition: Admitted As Inpatient Admit Provider: Amara Murillo Clinical Impression: Femoral distal fracture Condition: Stable Coding Level of Care Code ED Meter Technician for Inez Michelle
--- NOTE | 2023-02-24 14:55 | CTR_ITS ---
PROCEDURE INFORMATION: Exam: CT Left Lower Extremity Without Contrast, Knee Exam date and time: 02/24/2023 3:12 PM Age: 82 years old Clinical indication: Pain; Knee; Left; Additional info: Trauma/fall R/O fracture--recommended by radiologist TECHNIQUE: Imaging protocol: CT of the left lower extremity without contrast was performed. Exam focused on the knee. Radiation optimization: All CT scans at this facility use at least one of these dose optimization techniques: automated exposure control; mA and/or kV adjustment per patient size (includes targeted exams where dose is matched to clinical indication); or iterative reconstruction. REPORTING DATA: Count of CT and Cardiac NM exams in prior 12 months: This patient has received 2 known CTs and 0 known cardiac nuclear medicine studies in the 12 months prior to the current study. COMPARISON: CR (LOW EXM, ) 02/24/2023 2:02 PM RADIATION DOSE METRICS: Total DLP (mGy-cm): 391 FINDINGS: Bones/joints: A fracture seen involving the distal medial femoral metaphysis with cortical irregularity or deformity along the proximal medial margin and extension of the fracture line to the intercondylar fossa on the coronal images. Axial images demonstrate extension of the fracture line to the medial inferior patellofemoral joint space margin in addition to extension of the fracture line to the intercondylar fossa. No other fracture is seen about the left knee. Degenerative change or osteoarthritis is seen, more prominent about the lateral femoral compartment regarding joint-space narrowing. This includes component of hypertrophic bony change or osteophyte formation that appears tricompartmental. Note is made of large suprapatellar effusion. Soft tissues: Soft tissue swelling is seen. Vasculature: Arterial vascular calcification noted. CT/CT knee LT wo con* [id number] IMPRESSION: Fracture of the distal medial femoral metaphysis extending to the intercondylar fossa on the coronal images and extending to the inferior patellofemoral joint space margin on the axial images, with associated mild cortical deformity or offset along the medial margin.
[2023-02-24 16:12] LABS: Basophils % 0.4 %; Eosinophils # 0.1 10^3/uL (0.0-0.8); Eosinophils % 1.7 %; Hematocrit 34.2 % (36-47); Lymphocytes # 0.7 10^3/uL (0.8-4.8); Lymphocytes % 10.5 %; Mean Corpuscular HGB Conc 31.6 g/dL (30-55); Mean Corpuscular Hemoglobin 28.6 pg (27-33); Mean Corpuscular Volume 90.7 fl (85-98); Mean Platelet Volume 9.4 fL (7.4-10.4); Monocytes # 0.5 10^3/uL (0.2-0.9); Monocytes % 6.9 %; Neutrophils # 5.58 10^3/uL (1.8-7.7); Neutrophils % 80.1 %; Nucleated Red Blood Cells % 0 %; Platelet Count 254 10^3/cmm (157-399); Red Blood Count 3.77 10^6/uL (3.85-5.65); White Blood Count 6.97 10^3/uL (3.29-11.43)
--- NOTE | 2023-02-24 16:31 | PM.HP ---
Providers/Chief Complaint Primary Care Provider: Rob Grant MD Chief Complaint: Knee Pain History of Present Illness Stella Kang is a 82 year old female who presented to the hospital after sustaining a fall at home she has been diagnosed with femur fracture. She carries history of GI bleed related anemia she carries history of A-fib for which she is on digoxin and Eliquis along metoprolol. Previous echo showed ejection fraction 65% grade 1 diastolic function, for right knee she was taking chronic antibiotics Patient was seen orthopedic surgeon for right knee at [place] however recently moved her care to [place] local orthopedic surgeon. She is not able to tell me name of the orthopedic surgeon stating that she has dementia and she forgets very frequently. She is stating that today she was trying to help her daughter who is physically intellectually challenged, she lost her balance and fell on the ground and could not get up again. She was in excruciating pain. Review of Systems Const: Denies: fever(s) Eyes: Denies: change in vision ENMT: Denies: throat pain Card: Denies: chest pain Resp: Reports: dyspnea GI: Denies: abdominal pain : Denies: flank pain Musc: Reports: extremity pain and extremity swelling; Denies: neck pain Skin/Breast: Denies: rash Neuro: Denies: headache(s) Psych: Denies: anxiety Endo: Denies: polyuria Medications/Allergies Home Medications Medication Instructions Recorded Confirmed Last Taken Type acetaminophen 325 mg capsule 325 mg PO QID PRN Pain 06/14/19 02/24/23 01/07/23 History (Tylenol) magnesium 250 mg tablet 250 mg PO DAILY 06/14/19 02/24/23 02/24/23 History calcium carbonate 500 mg-vitamin 1 tab PO DAILY 12/26/20 02/24/23 02/24/23 History D3 200 unit-vitamin K2 90 mcg tablet lisinopril 10 mg tablet 10 mg PO DAILY #90 tabs 03/05/22 02/24/23 02/24/23 Rx atorvastatin 10 mg tablet 10 mg PO BEDTIME #90 tabs 04/08/22 02/24/23 02/23/23 Rx loratadine 10 mg tablet 10 mg PO DAILY #14 tabs 04/18/22 02/24/23 02/24/23 Rx apixaban 5 mg tablet (Eliquis) 5 mg PO BID 06/16/22 02/24/23 02/24/23 History ascorbic acid (vitamin C) 1,000 mg 1,000 mg PO BID 06/16/22 02/24/23 02/24/23 History tablet (Vitamin C) cyanocobalamin (vitamin B-12) 100 100 mcg PO DAILY 08/04/22 02/24/23 02/24/23 History mcg tablet (Vitamin B-12) doxycycline hyclate 100 mg capsule 100 mg PO BID 30 days #60 caps 08/08/22 02/24/23 02/24/23 Rx memantine 10 mg tablet (Namenda) 10 mg PO BID #180 tabs 10/28/22 02/24/23 02/24/23 Rx methenamine hippurate 1 gram tablet 1 g PO BID #180 tabs 11/05/22 02/24/23 02/24/23 Rx digoxin 125 mcg (0.125 mg) tablet 0.125 mcg PO EVERY OTHER DAY 01/07/23 02/24/23 02/23/23 History pantoprazole 40 mg tablet,delayed 40 mg PO BID PRN Acid Reflux 01/07/23 02/24/23 Unknown History release (Protonix) Compression socks up to knees #1 ea 01/14/23 02/24/23 Unknown Rx metoprolol succinate 25 mg 25 mg PO DAILY #90 tabs 02/11/23 02/24/23 02/24/23 Rx tablet,extended release 24 hr furosemide 40 mg tablet 40 mg PO EVERY OTHER DAY 02/24/23 02/24/23 02/23/23 History galantamine 8 mg 24 hr 8 mg PO BID 02/24/23 02/24/23 02/24/23 History capsule,extended release Allergies Allergy/AdvReac Type Severity Reaction Status Date / Time aspirin Allergy Unknown Unknown Verified 01/14/23 13:15 ezetimibe [From Zetia] Allergy unknown Verified 01/14/23 13:15 fenofibrate Allergy unknown Verified 01/14/23 13:15 lovastatin Allergy unknown Verified 01/14/23 13:15 NSAIDS (Non-Steroidal Allergy unknown Verified 01/14/23 13:15 Anti-Inflamma simvastatin [From Vytorin] Allergy unknown Verified 01/14/23 13:15 PFSH Acute PFSH: Medical History Afib on digoxin, metoprolol, eliquis, follows with Dr Mitchell Alzheimer disease follows with [place] [facility] esophagus Chronic anticoagulation eliquis, secondary to atrial fibrillation 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, treated with chronic doxycycline, followed by Dr Catina CHÁVEZ in [place], and referred to specialist in [facility] Chronic venous insufficiency Diabetic peripheral neuropathy associated with type 2 diabetes mellitus diabetes resolved with weight loss, neuropathy persisted DM type 2 (diabetes mellitus, type 2) Improved after weight loss not on any antihyperglycemics Dyslipidemia Essential hypertension Incomplete emptying of bladder follows with [facility] Primary osteoarthritis of left knee Recurrent UTI Urgency incontinence Valgus deformity, not elsewhere classified, left knee Surgical History Amputated toe of right foot H/O shoulder surgery History of appendectomy History of bilateral cataract extraction History of hysterectomy History of knee replacement right knee, with subsequent revision and later infection in replaced joint, treated with chronic doxycycline, followed by [facility] History of tonsillectomy Family History Father , at age 80 Cancer Bleeding disorder Diabetes Mother , at age 36 complication Other Seizure Denies family history of CAD (coronary artery disease) Clotting disorder Dementia Chronic kidney disease (CKD) Suicide Anesthesia complication Lung disease Stroke Social History Smoking and tobacco/nicotine status: never used tobacco/nicotine Second hand smoke exposure: No Alcohol intake: current Alcohol intake frequency: holidays/special occasions only Alcohol type: wine Substance/Drug Use: never Adopted: No Caregiver/support person: No Lives independently: Yes Marital status: / Current occupational status: retired Vitals/I&O/Wt Last Vital Signs Temp 98.2 F 02/24/23 13:53 Pulse 58 L 02/24/23 13:53 Resp 18 02/24/23 13:53 Pulse Ox 94 02/24/23 13:53 O2 Del Method Room Air 02/24/23 13:53 Weight last 48 hrs Weight 58.967 kg Physical Exam Narrative: Patient is pleasant and cooperative Rizvi catheter in place GCS 15 Abdomen soft S1, S2 Currently on room air Son is at the bedside No acute exacerbation of dementia Data 02/25/23 05:23 02/25/23 05:23 A&P Assessment and plan (1) Chronic cystitis: (2) Prosthetic joint infection: (3) Left knee pain: (4) Femur fracture, left: Plan Left femur fracture Patient stating that she has not taken Eliquis for about a week because she ran out I will keep her on diet and then n.p.o. after midnight We will consult Dr. Kuhn Will place Rizvi catheter She has significant edema of lower extremities concerning varicose veins and lymphedema I will continue Lasix Atrial flutter without RVR We will use morphine analgesia along bowel regimen For right knee with drainage she is still on doxycycline I will put her on IV vancomycin N.p.o. 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
[2023-02-24 16:33] LABS: INR 1.11 (0.8-1.2)
[2023-02-24 16:34] LABS: Partial Thromboplastin Time 28.2 SECONDS (23.9-36.7)
[2023-02-24 16:37] LABS: Alanine Aminotransferase 13 U/L (0-33); Albumin Level 3.6 g/dL (3.5-5.2); Alkaline Phosphatase 162 U/L (35-105); Anion Gap 13.1 (5-19); Aspartate Amino Transferase 18 U/L (0-32); Blood Urea Nitrogen 20 mg/dL (8-23); Calcium 8.9 mg/dL (8.5-10.5); Carbon Dioxide 25 mmol/L (22-29); Chloride 106 mmol/L (98-107); Globulin 2.7 g/dL (1.3-4.6); Glucose 102 mg/dL (65-115); Osmolality Calculated 293 mOsm/kg (285-295); Potassium 4.1 mmol/L (3.5-5.1); Sodium 140 mmol/L (136-145); Total Bilirubin 0.4 mg/dL (0.15-1.2); Total Protein 6.3 g/dL (6.6-8.7)
--- NOTE | 2023-02-24 16:39 | ECG_ITS ---
[facility] Test Date: 2023-02-24 Pat Name: Stella Kang Department: Room: Gender: Female [employer]: : 1940 Requested By: Sebastian Beck Order Number: [id number] Bruno MD: Jennifer Sam M.D. Measurements Intervals [place] Rate: 58 P: 85 GA: 152 QRS: 3 QRSD: 84 T: 31 QT: 387 QTc: 382 Interpretive Statements SINUS BRADYCARDIA Compared to ECG 06/17/2022 10:41:06 Sinus rhythm no longer present Atrial abnormality no longer present Myocardial infarct finding no longer present Electronically Signed On 02-24-2023 17:41:49 CDT by Jennifer Sam M.D. [email or web address]
[2023-02-24 18:23] VITALS: BP 144/71; PULSE 69; O2SAT 99
[2023-02-24 19:22] VITALS: RESP 18; O2SAT 99
[2023-02-24] MEDS: morphine IR 15 mg Tablet PO (19:22)
[2023-02-24 20:00] VITALS: PULSE 78; RESP 16; O2SAT 92
--- NOTE | 2023-02-24 20:18 | PC.NURSE ---
During nursing shift assessment, pt reported she has not taken her Eliquis in approximately a week due to running out.
[2023-02-24] MEDS: atorvastatin 40 mg Tablet 20 MG PO (20:30)
[2023-02-24] MEDS: vancomycin 1,000 MG in sodium chloride 0.9% 250 ML 250 MG IV (20:30)
[2023-02-24 21:08] LABS: Glucose Point of Care 124 mg/dL (70-110)
--- NOTE | 2023-02-24 21:24 | PM.CONSULT ---
Providers/Reason For Consult Consulting Physician/Specialty*: Artem Kuhn DO/orthopedic surgery Reason for Consult*: Left distal femur fracture Requesting Physician: Dr. Murillo Attending Physician: Amara Murillo MD Primary Care Provider: Rob Grant MD History of Present Illness History of Present Illness Stella Kang is a 82 year old female who presented to the emergency department the left distal femur fracture. Patient is 82 years old and lives at home and highly functioning at baseline. She helps with her disabled 50-year-old daughter. She ambulates at baseline. She has had bilateral knee pain for years. History of a right total knee arthroplasty that known to have a chronic infection being treated with chronic suppression with doxycycline she allegedly takes Eliquis for A-fib but has not taken this according to her and per the notes and a week. She states she was helping her daughter and putting her in bed when she sounds like had a seizure and she unfortunately fell as well as the patient and patient sustained a left distal femur fracture. Patient denies any loss of consciousness any fevers chills chest pain shortness of breath nausea or vomiting. No change in her baseline of function prior to the fall. States that her knee pain that she has had for years has been at baseline. Patient has no other complaints at this time and other areas of her body that are hurting. Review of Systems General: Reports: 10 or more systems reviewed and unremarkable except in HPI and below Medications/Allergies Home Medications Medication Instructions Recorded Confirmed Last Taken Type acetaminophen 325 mg capsule 325 mg PO QID PRN Pain 06/14/19 02/24/23 01/07/23 History (Tylenol) magnesium 250 mg tablet 250 mg PO DAILY 06/14/19 02/24/23 02/24/23 History calcium carbonate 500 mg-vitamin 1 tab PO DAILY 12/26/20 02/24/23 02/24/23 History D3 200 unit-vitamin K2 90 mcg tablet lisinopril 10 mg tablet 10 mg PO DAILY #90 tabs 03/05/22 02/24/23 02/24/23 Rx atorvastatin 10 mg tablet 10 mg PO BEDTIME #90 tabs 04/08/22 02/24/23 02/23/23 Rx loratadine 10 mg tablet 10 mg PO DAILY #14 tabs 04/18/22 02/24/23 02/24/23 Rx apixaban 5 mg tablet (Eliquis) 5 mg PO BID 06/16/22 02/24/23 02/24/23 History ascorbic acid (vitamin C) 1,000 mg 1,000 mg PO BID 06/16/22 02/24/23 02/24/23 History tablet (Vitamin C) cyanocobalamin (vitamin B-12) 100 100 mcg PO DAILY 08/04/22 02/24/23 02/24/23 History mcg tablet (Vitamin B-12) doxycycline hyclate 100 mg capsule 100 mg PO BID 30 days #60 caps 08/08/22 02/24/23 02/24/23 Rx memantine 10 mg tablet (Namenda) 10 mg PO BID #180 tabs 10/28/22 02/24/23 02/24/23 Rx methenamine hippurate 1 gram tablet 1 g PO BID #180 tabs 11/05/22 02/24/23 02/24/23 Rx digoxin 125 mcg (0.125 mg) tablet 0.125 mcg PO EVERY OTHER DAY 01/07/23 02/24/23 02/23/23 History pantoprazole 40 mg tablet,delayed 40 mg PO BID PRN Acid Reflux 01/07/23 02/24/23 Unknown History release (Protonix) Compression socks up to knees #1 ea 01/14/23 02/24/23 Unknown Rx metoprolol succinate 25 mg 25 mg PO DAILY #90 tabs 02/11/23 02/24/23 02/24/23 Rx tablet,extended release 24 hr furosemide 40 mg tablet 40 mg PO EVERY OTHER DAY 02/24/23 02/24/23 02/23/23 History galantamine 8 mg 24 hr 8 mg PO BID 02/24/23 02/24/23 02/24/23 History capsule,extended release Allergies Allergy/AdvReac Type Severity Reaction Status Date / Time aspirin Allergy Unknown Unknown Verified 01/14/23 13:15 ezetimibe [From Zetia] Allergy unknown Verified 01/14/23 13:15 fenofibrate Allergy unknown Verified 01/14/23 13:15 lovastatin Allergy unknown Verified 01/14/23 13:15 NSAIDS (Non-Steroidal Allergy unknown Verified 01/14/23 13:15 Anti-Inflamma simvastatin [From Vytorin] Allergy unknown Verified 01/14/23 13:15 Current Medications Generic Name Dose Route Start Last Admin Trade Name [facility] PRN Reason Stop Dose Admin Apixaban 5 mg 02/24/23 18:55 02/24/23 19:20 Apixaban 5 Mg Tablet PO Not Given BID PARVIN Atorvastatin Calcium 20 mg 02/24/23 21:00 02/24/23 20:30 Atorvastatin 40 Mg Tablet PO 20 mg BEDTIME PARVIN Administration Vancomycin HCl 1,000 mg/ 250 mls @ 250 mls/hr 02/24/23 20:00 02/24/23 20:30 Sodium Chloride IV 250 mls/hr Q16H PARVIN Administration Insulin Human Lispro 0 unit 02/24/23 18:55 02/24/23 19:03 Insulin Lispro 100 Unit/1 Ml SUBCUT Not Given TIDWM [facility] Protocol Morphine Sulfate 15 mg 02/24/23 18:55 02/24/23 19:22 Morphine Ir 15 Mg Tablet PO 15 mg Q6H PRN Administration MODERATE PAIN Non-Formulary Medication 8 mg 02/24/23 18:55 02/24/23 19:20 Galantamine PO Not Given BID [facility] Non-Formulary Medication 1 gm 02/24/23 18:55 02/24/23 19:20 Methenamine Hippurate PO Not Given BID PARVIN PFSH Acute PFSH: Medical History Afib on digoxin, metoprolol, eliquis, follows with Dr Mitchell Alzheimer disease follows with [facility] [place] [facility] esophagus Chronic anticoagulation eliquis, secondary to atrial fibrillation 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, treated with chronic doxycycline, followed by Dr Catina CHÁVEZ in [place], and referred to specialist in [facility] Chronic venous insufficiency Diabetic peripheral neuropathy associated with type 2 diabetes mellitus diabetes resolved with weight loss, neuropathy persisted DM type 2 (diabetes mellitus, type 2) Improved after weight loss not on any antihyperglycemics Dyslipidemia Essential hypertension Incomplete emptying of bladder follows with Sae[facility] Primary osteoarthritis of left knee Recurrent UTI Urgency incontinence Valgus deformity, not elsewhere classified, left knee Surgical History Amputated toe of right foot H/O shoulder surgery History of appendectomy History of bilateral cataract extraction History of hysterectomy History of knee replacement right knee, with subsequent revision and later infection in replaced joint, treated with chronic doxycycline, followed by ID History of tonsillectomy Family History Father , at age 80 Cancer Bleeding disorder Diabetes Mother , at age 36 complication Other Seizure Denies family history of CAD (coronary artery disease) Clotting disorder Dementia Chronic kidney disease (CKD) Suicide Anesthesia complication Lung disease Stroke Social History Smoking and tobacco/nicotine status: never used tobacco/nicotine Second hand smoke exposure: No Alcohol intake: current Alcohol intake frequency: holidays/special occasions only Alcohol type: wine Substance/Drug Use: never Adopted: No Caregiver/support person: No Lives independently: Yes Marital status: / Current occupational status: retired Vitals/I&O/Wt Last Vital Signs Temp 98.2 F 02/24/23 13:53 Pulse 78 02/24/23 20:00 Resp 16 02/24/23 20:00 BP 144/71 02/24/23 18:23 Pulse Ox 92 02/24/23 20:00 O2 Del Method Room Air 02/24/23 20:00 Weight last 48 hrs Weight 130 lb Physical Exam Narrative: Examination left lower extremity: Examination left lower extremity knee immobilizer on and in place she has a large palpable joint effusion swelling at the fracture of the left distal femur. Tenderness to palpation fracture site of distal femur. No gross clinical deformity appreciated. Patient can wiggle her toes plantarflex and dorsiflex ankle sensations intact light touch distally she does have significant peripheral pitting edema roughly 2's/3+. Distal pulses are palpable. No tenderness palpation of the left hip negative pelvic compression test. Secondary survey examination demonstrates patient has no deformities and no tenderness palpation bilateral upper extremity joints gross motor and sensory is intact bilateral upper extremity joints. The right lower extremity she does have comparable pitting edema compared to the contralateral extremity. She has incision on the left knee with a small punctate wound medially this appears to be healed over no active drainage or purulence is noted. She states this does drain most of the time there is a mild joint effusion noted at this knee there is no significant redness or erythema appreciated. Gross motor and sensory intact the right lower extremity negative tenderness palpation left hip or pelvic compression test. Urinary Catheter Management: Rizvi: Cath Placed During This Visit: yes Reason for Continuing Indwelling Catheter: Other Urinary Catheter Date of Insertion: 02/24/23 Urinary Catheter Time of Insertion: 18:19 Data 02/24/23 16:05 02/24/23 16:05 Xray Ortho: My impression: X-rays 3 views left knee reviewed in person interpreted myself demonstrating a displaced left Distal femur fracture. Other CT: My impression: CT scan of the left knee reviewed and demonstrates a displaced and comminuted intra-articular split left distal femur fracture. Patient has significant tricompartment arthritic changes with multiple cystic lesions noted this is consistent most likely with patient's secondary osteoarthritis and osteoporosis however given the multiple would recommend rule out ofLytic lesions multiple myeloma. Radiologist's impression: Ordering Provider/Ordering MD: Sebastian Beck MD Date of Service: 02/24/23 Procedure(s): CT knee LT wo con* [id number] Accession Number(s): [id number] Report Number: [id number] PROCEDURE INFORMATION: Exam: CT Left Lower Extremity Without Contrast, Knee Exam date and time: 02/24/2023 3:12 PM Age: 82 years old Clinical indication: Pain; Knee; Left; Additional info: Trauma/fall R/O fracture--recommended by radiologist TECHNIQUE: Imaging protocol: CT of the left lower extremity without contrast was performed. Exam focused on the knee. Radiation optimization: All CT scans at this facility use at least one of these dose optimization techniques: automated exposure control; mA and/or kV adjustment per patient size (includes targeted exams where dose is matched to clinical indication); or iterative reconstruction. REPORTING DATA: Count of CT and Cardiac NM exams in prior 12 months: This patient has received 2 known CTs and 0 known cardiac nuclear medicine studies in the 12 months prior to the current study. COMPARISON: CR (LOW EXM, ) 02/24/2023 2:02 PM RADIATION DOSE METRICS: Total DLP (mGy-cm): 391 FINDINGS: Bones/joints: A fracture seen involving the distal medial femoral metaphysis with cortical irregularity or deformity along the proximal medial margin and extension of the fracture line to the intercondylar fossa on the coronal images. Axial images demonstrate extension of the fracture line to the medial inferior patellofemoral joint space margin in addition to extension of the fracture line to the intercondylar fossa. No other fracture is seen about the left knee. Degenerative change or osteoarthritis is seen, more prominent about the lateral femoral compartment regarding joint-space narrowing. This includes component of hypertrophic bony change or osteophyte formation that appears tricompartmental. Note is made of large suprapatellar effusion. Soft tissues: Soft tissue swelling is seen. Vasculature: Arterial vascular calcification noted. CT/CT knee LT wo con* [id number] IMPRESSION: Fracture of the distal medial femoral metaphysis extending to the intercondylar fossa on the coronal images and extending to the inferior patellofemoral joint space margin on the axial images, with associated mild cortical deformity or offset along the medial margin. A&P Assessment and plan (1) Closed fracture of left distal femur: Plan N.p.o. at midnight Imaging reviewed Labs reviewed Nonweightbearing left lower extremity Ice and elevate for pain and swelling Pain control Maintain knee immobilizer Plan for OR tomorrow for left distal femur open reduction internal fixation We will need MRI prior to surgery tomorrow to rule out no type of pathologic fracture MDM: Patient presents status post ground-level fall and has a left distal femur fracture at this point in time she has been medically optimized by her hospitalist and appreciate his medical management and assistance. Reviewing of her imaging she has a displaced intercondylar split left distal femur fracture would be amenable for surgical fixation she does have numerous cystic lesions noted throughout the femur this is likely secondary to osteoarthritis or osteoporosis. And also significant tricompartmental arthritic changes are noted. However given the multiple cystic/Lytic lesions would like to obtain a left femur MRI prior to any surgical intervention this to rule out any types of pathologic fracture. Spoke with internal medicine about this they are going to get a medical work-up for possible multiple myeloma. Patient understands our thought process as well as wanting to work this up and understands and agrees to proceed with current plan. All questions answered. We will have patient be n.p.o. at midnight with plan for surgical intervention tomorrow afternoon after she has had appropriate work-up completed. Patient understands and agrees with current plan. Questions answered. Recommend surgical intervention given intercondylar involvement as well as displacement and to assist with early knee range of motion to help with better quality and functional life. Understanding risk of surgery which include not limited to make it better make it worse injury to nerves vessels or tendons, blood clot, heart attack, stroke, on the table, infection wound complications. Understanding risk of surgery she elects to proceed all questions answered. Consult Attestations Medical Necessity Statement: Left distal femur fracture Coding Level of Care Code Acute Code for [facility] Fwd Diagnoses Closed fracture of left distal femur S72.402A Time Spent (min) 45
[2023-02-24 22:34] VITALS: RESP 20
[2023-02-24] MEDS: HYDROmorphone 1 mg/mL INJ 1 mL 0.5 MG IVP (22:34)
[2023-02-24 23:54] VITALS: BP 160/81; PULSE 76; RESP 15; TEMP 37.1; O2SAT 92
[2023-02-25] VITALS (12 sets, daily range): BP systolic 115–149; BP diastolic 58–80; PULSE 69–92; RESP 14–18; TEMP 36.2–37.3; O2SAT 91–97
[2023-02-25 06:00] LABS: Basophils % 0.5 %; Eosinophils # 0.1 10^3/uL (0.0-0.8); Eosinophils % 1.6 %; Lymphocytes # 0.6 10^3/uL (0.8-4.8); Lymphocytes % 9.1 %; Mean Corpuscular HGB Conc 31.5 g/dL (30-55); Mean Corpuscular Hemoglobin 28.5 pg (27-33); Mean Corpuscular Volume 90.4 fl (85-98); Mean Platelet Volume 9.7 fL (7.4-10.4); Monocytes # 0.3 10^3/uL (0.2-0.9); Monocytes % 4.9 %; Neutrophils # 5.14 10^3/uL (1.8-7.7); Neutrophils % 83.7 %; Nucleated Red Blood Cells % 0 %; Platelet Count 250 10^3/cmm (157-399); Red Blood Count 3.65 10^6/uL (3.85-5.65); White Blood Count 6.14 10^3/uL (3.29-11.43)
--- NOTE | 2023-02-25 06:00 | MR_ITS ---
WS: [id number] MRI LEFT KNEE WITH AND WITHOUT CONTRAST. COMPARISON: CT 02/24/2023 Multiplanar, multisequence imaging is performed with and without contrast. MultiHance 12 mL. Minimally comminuted and displaced intra-articular fracture involving the distal femur. Fracture exte nds through the medial superior femoral condyle at the metadiaphyseal junction. There is medial displ acement of the distal fracture by 6 mm. The fracture extends obliquely into the intercondylar notch. There is very slight impaction along the fracture line. Cannot confirm extension to the lateral femor al condyle. Bones are osteopenic. Small subchondral cysts along the tibial plateau. No destructive bone lesions o r metastatic process. No enhancing marrow lesions. There is enhancement along the fracture line as ex pected. There is a large lipohemarthrosis. Large amount of soft tissue edema and blood surrounding the knee. Absent ACL. There is mild anterior translation of the femoral condyle due to the ACL tear. Moderate atrophy of the muscle surrounding the knee. Marked narrowing of the medial and lateral joint compartments. Spurring of the tibial spines extending into the intercondylar notch is better seen on the CT. IMPRESSION: 1. Minimally comminuted, intra-articular fracture extending obliquely through the medial femoral cond yle at the level of the metadiaphysis. Fracture extends to the intercondylar notch. Medial displaceme nt of the distal fragment by 6 mm. 2. No enhancing bone lesions. 3. Osteopenia with advanced degenerative joint disease and subchondral cystic changes predominantly a long the tibial plateau. 4. Large lipohemarthrosis and soft tissue edema surrounding the knee.
[2023-02-25 06:25] LABS: Anion Gap 13.3 (5-19); Blood Urea Nitrogen 16 mg/dL (8-23); C Reactive Protein 36.5 mg/L (0.0-4.9); Calcium 8.6 mg/dL (8.5-10.5); Carbon Dioxide 25 mmol/L (22-29); Chloride 104 mmol/L (98-107); Glucose 130 mg/dL (65-115); Magnesium 1.8 mg/dL (1.7-2.3); Osmolality Calculated 289 mOsm/kg (285-295); Potassium 4.3 mmol/L (3.5-5.1); Sodium 138 mmol/L (136-145)
[2023-02-25 06:39] LABS: Glucose Point of Care 103 mg/dL (70-110)
[2023-02-25] MEDS: ascorbic acid 500 mg Tablet 1000 MG PO ×2 (08:21→18:20)
[2023-02-25] MEDS: memantine 5 mg tablet 10 MG PO ×2 (08:21→18:19)
[2023-02-25] MEDS: sennosides-docusate Tablet 1 TAB PO (08:21)
[2023-02-25] MEDS: HYDROmorphone 1 mg/mL INJ 1 mL 0.5 MG IVP (10:28)
--- NOTE | 2023-02-25 10:31 | P.PN_ITS ---
Subjective Subjective: Dr. Kuhn noticed punched-out lesion on lower extremity imaging, patient does not have any anemia, calcium is normal, Dr. Kuhn requested multiple myeloma work-up Waiting for surgery today N.p.o. No active pain Rizvi catheter in place No fever overnight Agreeable to go to SNF after her surgery Vitals/I&O/Wt Last Vital Signs Temp 98.5 F 02/25/23 08:00 Pulse 77 02/25/23 08:45 Resp 18 02/25/23 10:28 BP 136/63 02/25/23 08:00 Pulse Ox 92 02/25/23 08:45 O2 Del Method Room Air 02/25/23 08:45 02/24/23 02/25/23 02/25/23 22:59 06:59 14:59 Intake Total 250 / 250 Output Total 300 / 300 0 / 300 0 / 0 Balance -50 / -50 0 / -50 0 / 0 Weight last 48 hrs Weight 58.967 kg Physical Exam Narrative: Awake and alert Dehydrated Currently on room air Nonfocal neuro exam No acute exacerbation of dementia Nonfocal neuro exam Lymphedema of lower extremities S1, S2 Currently on room air doing well with no acute wheezing or crackles Urinary Catheter Management: Rizvi: Cath Placed During This Visit: yes Reason for Continuing Indwelling Catheter: Other Urinary Catheter Date of Insertion: 02/24/23 Urinary Catheter Time of Insertion: 18:19 Data 02/25/23 05:23 02/25/23 05:23 A&P Assessment and plan (1) Closed fracture of left distal femur: (2) Femur fracture, left: (3) Chronic cystitis: (4) Prosthetic joint infection: (5) Anemia: (6) Recurrent UTI: (7) Afib: Qualifiers: Atrial fibrillation type: longstanding persistent Qualified Code(s): I48.11 - Longstanding persistent atrial fibrillation (8) Chronic anticoagulation: (9) Bilateral knee pain: (10) Lower extremity edema: Plan Patient is going for surgical intervention today Multiple myeloma work-up has been requested by Dr. Kuhn for anemia and punched- out lesion on lower extremity imaging I do not see any hypercalcemia BMP finding from previous visits, multiple follow-up work-up will take about 3 to 4 days to result After her surgery she will need SNF Continue Rizvi catheter We will request PT evaluation after surgery Most likely [facility] She does have chronic anemia however no acute worsening please note she also has history of bright bleed per rectum A-fib without RVR Full code Attestations Medical Necessity Statement*: Continue medical management Diagnoses Closed fracture of left distal femur S72.402A Femur fracture, left S72.92XA Chronic cystitis N30.20 Prosthetic joint infection T84.50XA Anemia D64.9 Recurrent UTI N39.0 Afib I48.11 Atrial fibrillation type: longstanding persistent Chronic anticoagulation Z79.01 Bilateral knee pain M25.561; M25.562 Lower extremity edema R60.0
--- NOTE | 2023-02-25 11:56 | P.ANESASSM_ITS ---
Pre-Anesthetic Assessment Height/Weight: Height 1.65 m Weight 58.967 kg Temp Pulse Resp BP Pulse Ox O2 Del Method 98.5 F 77 18 136/63 92 Room Air 02/25/23 08:00 02/25/23 08:45 02/25/23 10:28 02/25/23 08:00 02/25/23 08:45 02/25/23 08:45 Preop Diagnosis: Left distal femur fracture Operation Date: 02/25/23 12:05 Proposed Procedures p Left Distal Femur ORIF c [place](Left) - Artem [place], Familial anesthetic complications: None Was Beta Chris taken within 24 hours: N/A Was Clonidine taken within 24 hours: N/A Last intake: Intake Last Liquid Date 02/24/23 Last Liquid Time 23:00 Last Solid Date 02/24/23 Last Solid Time 20:00 Social No alcohol and No tobacco Exam alert, oriented x 3, clear to auscultation bilaterally and regular rate & rhythm Airway Mallampati: Class II Dentition: other (none) CV/HEM Atrial Fibrillation and Hypertension GI Gastroesophageal Reflux Disease Anesthetic Plan ASA status: 3 Anesthesia: General Risk of > 500 ml blood loss (7ml/kg in children): Yes, adequate IV access and fluids planned Medications/Allergies Home Medications Medication Instructions Recorded Confirmed Last Taken Type acetaminophen 325 mg capsule 325 mg PO QID PRN Pain 06/14/19 02/24/23 01/07/23 History (Tylenol) magnesium 250 mg tablet 250 mg PO DAILY 06/14/19 02/24/23 02/24/23 History calcium carbonate 500 mg-vitamin 1 tab PO DAILY 12/26/20 02/24/23 02/24/23 History D3 200 unit-vitamin K2 90 mcg tablet lisinopril 10 mg tablet 10 mg PO DAILY #90 tabs 03/05/22 02/24/23 02/24/23 Rx atorvastatin 10 mg tablet 10 mg PO BEDTIME #90 tabs 04/08/22 02/24/23 02/23/23 Rx loratadine 10 mg tablet 10 mg PO DAILY #14 tabs 04/18/22 02/24/23 02/24/23 Rx apixaban 5 mg tablet (Eliquis) 5 mg PO BID 06/16/22 02/24/23 02/24/23 History ascorbic acid (vitamin C) 1,000 mg 1,000 mg PO BID 06/16/22 02/24/23 02/24/23 History tablet (Vitamin C) cyanocobalamin (vitamin B-12) 100 100 mcg PO DAILY 08/04/22 02/24/23 02/24/23 History mcg tablet (Vitamin B-12) doxycycline hyclate 100 mg capsule 100 mg PO BID 30 days #60 caps 08/08/22 02/24/23 02/24/23 Rx memantine 10 mg tablet (Namenda) 10 mg PO BID #180 tabs 10/28/22 02/24/23 02/24/23 Rx methenamine hippurate 1 gram tablet 1 g PO BID #180 tabs 11/05/22 02/24/23 02/24/23 Rx digoxin 125 mcg (0.125 mg) tablet 0.125 mcg PO EVERY OTHER DAY 01/07/23 02/24/23 02/23/23 History pantoprazole 40 mg tablet,delayed 40 mg PO BID PRN Acid Reflux 01/07/23 02/24/23 Unknown History release (Protonix) Compression socks up to knees #1 ea 01/14/23 02/24/23 Unknown Rx metoprolol succinate 25 mg 25 mg PO DAILY #90 tabs 02/11/23 02/24/23 02/24/23 Rx tablet,extended release 24 hr furosemide 40 mg tablet 40 mg PO EVERY OTHER DAY 02/24/23 02/24/23 02/23/23 History galantamine 8 mg 24 hr 8 mg PO BID 02/24/23 02/24/23 02/24/23 History capsule,extended release Allergies Allergy/AdvReac Type Severity Reaction Status Date / Time aspirin Allergy Unknown Unknown Verified 01/14/23 13:15 ezetimibe [From Zetia] Allergy unknown Verified 01/14/23 13:15 fenofibrate Allergy unknown Verified 01/14/23 13:15 lovastatin Allergy unknown Verified 01/14/23 13:15 NSAIDS (Non-Steroidal Allergy unknown Verified 01/14/23 13:15 Anti-Inflamma simvastatin [From Vytorin] Allergy unknown Verified 01/14/23 13:15 Current Medications Generic Name Dose Route Start Last Admin Trade Name Freq PRN Reason Stop Dose Admin Apixaban 5 mg 02/24/23 18:55 02/25/23 07:55 Apixaban 5 Mg Tablet PO Not Given BID [facility] Ascorbic Acid 1,000 mg 02/25/23 09:00 02/25/23 08:21 Ascorbic Acid 500 Mg Tablet PO 1,000 mg BID PARVIN Administration Atorvastatin Calcium 20 mg 02/24/23 21:00 02/24/23 20:30 Atorvastatin 40 Mg Tablet PO 20 mg BEDTIME PARVIN Administration Hydromorphone HCl 0.5 mg 02/24/23 21:43 02/25/23 10:28 Hydromorphone 1 Mg/Ml Inj 1 Ml IVP 0.5 mg Q3H PRN Administration BREAKTHROUGH PAIN Vancomycin HCl 1,000 mg/ 250 mls @ 250 mls/hr 02/24/23 20:00 02/24/23 21:48 Sodium Chloride IV Infused Q16H [facility] Infusion Insulin Human Lispro 0 unit 02/24/23 18:55 02/25/23 07:56 Insulin Lispro 100 Unit/1 Ml SUBCUT Not Given TIDWM [facility] Protocol Memantine 10 mg 02/25/23 09:00 02/25/23 08:21 Memantine 5 Mg Tablet PO 10 mg BID PARVIN Administration Morphine Sulfate 15 mg 02/24/23 18:55 02/24/23 19:22 Morphine Ir 15 Mg Tablet PO 15 mg Q6H PRN Administration MODERATE PAIN Non-Formulary Medication 8 mg 02/24/23 18:55 02/25/23 07:56 Galantamine PO Not Given BID [facility] Non-Formulary Medication 1 gm 02/24/23 18:55 02/25/23 07:56 Methenamine Hippurate PO Not Given BID [facility] Senna/Docusate Sodium 1 tab 02/25/23 09:00 02/25/23 08:21 Sennosides-Docusate Tablet PO 1 tab DAILY PARVIN Administration [facility] Anesthesia Medical History Afib on digoxin, metoprolol, eliquis, follows with Dr Stephen Dumont disease follows with [place] esophagus Chronic anticoagulation eliquis, secondary to atrial fibrillation 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 Chronic venous insufficiency Diabetic peripheral neuropathy associated with type 2 diabetes mellitus diabetes resolved with weight loss, neuropathy persisted DM type 2 (diabetes mellitus, type 2) Improved after weight loss not on any antihyperglycemics Dyslipidemia Essential hypertension Incomplete emptying of bladder follows with Saez Primary osteoarthritis of left knee Recurrent UTI Urgency incontinence Valgus deformity, not elsewhere classified, left knee Surgical History Amputated toe of right foot H/O shoulder surgery History of appendectomy History of bilateral cataract extraction History of hysterectomy History of knee replacement right knee, with subsequent revision and later infection in replaced joint, t reated with chronic doxycycline, followed by ID History of tonsillectomy Family History Father , at age 80 Cancer Bleeding disorder Diabetes Mother , at age 36 complication Other Seizure Denies family history of CAD (coronary artery disease) Clotting disorder Dementia Chronic kidney disease (CKD) Suicide Anesthesia complication Lung disease Stroke Social History Smoking and tobacco/nicotine status: never used tobacco/nicotine Second hand smoke exposure: No Alcohol intake: current Alcohol intake frequency: holidays/special occasions only Alcohol type: wine Substance/Drug Use: never Adopted: No Caregiver/support person: No Lives independently: Yes Marital status: / Current occupational status: retired Data Anesthesia 02/25/23 05:23 02/25/23 05:23 Short CBC 02/24/23 02/25/23 Range/Units 16:05 05:23 WBC 6.97 6.14 (3.29-11.43) 10^3/uL Hgb 10.80 L 10.40 L (11.27-16.99) g/dL Hct 34.2 L 33.0 L (36-47) % MCV 90.7 90.4 (85-98) fl Plt Count 254 250 (157-399) 10^3/cmm Neut % (Auto) 80.1 83.7 % Neut # (Auto) 5.58 5.14 (1.8-7.7) 10^3/uL BMP 02/24/23 02/25/23 16:05 05:23 Sodium 140 138 Potassium 4.1 4.3 Chloride 106 104 Carbon Dioxide 25 25 BUN 20 16 Creatinine 0.6 0.6 Glucose 102 130 H Calcium 8.9 8.6 Liver Function 02/24/23 Range/Units 16:05 Total Bilirubin 0.4 (0.15-1.2) mg/dL AST 18 (0-32) U/L ALT 13 (0-33) U/L Alkaline Phosphatase 162 H (35-105) U/L Albumin 3.6 (3.5-5.2) g/dL Blood Bank 02/25/23 08:50 Blood Type A Positive Rho(D) Type Positive Antibody Screen Negative Coags 02/24/23 02/25/23 16:05 05:23 PT 14.60 INR 1.11 APTT 28.2 C-Reactive Protein 36.5 H Cardiac Studies: Echocardiogram 11/04/21
[2023-02-25] MEDS: vancomycin 1,000 MG in sodium chloride 0.9% 250 ML 250 MG IV (12:15)
[2023-02-25] MEDS: acetaminophen 1,000 MG/100 ML PIGGYBACK 400 MG IV (12:17)
[2023-02-25] MEDS: ceFAZolin 2,000 MG in sodium chloride 0.9% (plus) 50 ML 100 MG IV ×2 (13:27→21:57)
[2023-02-25] MEDS: vancomycin 1,000 MG SDV 1000 MG XX (14:16)
[2023-02-25] MEDS: lidocaine 2% INJ 20 mL INJECTION (15:55)
[2023-02-25] MEDS: ROPivacaine 0.5% SDV 30 mL 100 MG INJECTION (15:56)
--- NOTE | 2023-02-25 16:16 | P.BOP_ITS ---
Date of Procedure: 02/25/2023 Surgeon: Artem Kuhn DO Statistical Assistant(s): Denis Kuhn PA-C Procedure(s) performed: Left distal femur intra-articular fracture open reduction internal fixation Findings of the procedure(s): Left supracondylar distal femur fracture with intercondylar split and displacement, procedure went as planned with appropriate lag screw fixation as well as lateral anatomic distal femur plates and screw fixation construct. Estimated blood loss: 100 mL Specimen(s) removed: None Post-operative diagnosis: Left displaced distal femur intra-articular fracture
--- NOTE | 2023-02-25 16:35 | PM.PACU ---
PACU note Narrative: Patient is an 82-year-old female just underwent a left distal femur fracture ORIF. pt transferred to PACU in stable condition. Dressing is dry. knee immobilizer is on. pt is awake and alert. pt can wiggle toes and plantarflex and dorsiflex foot. pt unable to perform straight leg raise due to pain. Distal pulses are palpable toes are warm and well-perfused. Cap refill is normal and under 2 seconds. Sensation to foot is intact. Pain is controlled. Exam: awake Disposition: back to floor
--- NOTE | 2023-02-25 16:48 | PM.PACU ---
PACU note Exam: awake and vital signs stable Disposition: back to floor
--- NOTE | 2023-02-25 17:26 | XRR_ITS ---
PROCEDURE INFORMATION: Exam: XR Left Knee Exam date and time: 02/25/2023 6:02 PM Age: 82 years old Clinical indication: Device placement; Joint fixation hardware; Additional info: Orif left distal femur, please include entire hardware TECHNIQUE: Imaging protocol: Radiologic exam of the left knee. Views: 3 views. COMPARISON: CT knee LT wo con* [id number] 02/24/2023 3:12 PM FINDINGS: Bones/joints: Distal lateral femoral orthopedic plate in place. Severe tricompartmental osteoarthritis of the knee. Soft tissues: Postsurgical soft tissue findings about the lower extremity. Vasculature: Scattered vascular calcifications. XR/XR knee LT 3V* [id number] IMPRESSION: 1. Distal lateral femoral orthopedic plate in place. 2. Severe tricompartmental osteoarthritis of the knee. 3. Scattered vascular calcifications. 4. Postsurgical soft tissue findings about the lower extremity.
--- NOTE | 2023-02-25 17:39 | P.OP_ITS ---
Operative Report Date of procedure: February 25, 2023 Pre-op diagnosis: Left distal femur intra-articular fracture Post-op diagnosis: Same Procedure done: Left distal femur intra-articular fracture open reduction internal fixation Implants: [place] lateral distal femur lateral locking plate 8 hole combination of locking and nonlocking screws Surgeon: Artem Kuhn DO Lift Builder Whole: Denis Kuhn PA-C: PA was necessary for assistance in this case with maintaining reduction while fixation occurs as well as to retract and protect neurovascular structures and assist in wound closing Anesthesia: General Estimated blood loss: 100 mL No tourniquet was used IV fluids: 850 mL Urine output: 700 mL Complications: None Findings: See operative report narrative Condition: stable Disposition: floor Brief History: Patient was seen evaluated emergency department is 82-year-old female sustained a ground-level fall and had sustained a left intra-articular left distal femur fracture. Had appropriate imaging performed confirming this diagnosis internal medicine admitted patient for medical optimization prior to surgery as well as medical management. Orthopedics consulted for treatment recommendations. She was appropriately worked up on CT there was some lytic/cystic looking lesions just in precautionary a an MRI was performed prior to surgery to confirm and was discussed with radiology over the phone but these did not appear to be consistent with any lytic or pathologic lesion or fracture as result plan was to proceed with left distal femur open reduction internal fixation as she had displacement as well as intra-articular split. We talked about treatment options far as nonoperative operative intervention. Through shared decision making with patient she elects proceed with surgical intervention all questions been answered at this time. Given the intra-articular involvement and the level of fracture would recommend lateral plate fixation this will limit unfortunately her weightbearing but we can maintain early knee range of motion at this time patient understands and agrees with current plan. All questions answered. Elects proceed with surgical intervention of left distal femur ORIF. Procedure: Patient seen eval in the preoperative holding area. Consent was reviewed and signed with patient. Correct extremity then marked. Seen evaluate by anesthesia once cleared for surgery was taken back to the operative suite placed in supine position on the OR table all bony prominences well-padded patient appropriate secured to the bed. Bone foam applied to the left lower extremity as well as an ipsilateral hip bump was placed. Underwent anesthesia per the anesthesia apartment once appropriately anesthetized the left lower extremity is then prepped and draped in standard orthopedic fashion final timeout performed. Patient received appropriate preoperative biotics as well as TXA. X-ray was then brought in and identifying the fracture site as well as ability to maintain a reduction with manual traction. I then subsequently performed a standard lateral approach to the distal femur. Sharp scalpel incision was made through skin and subcutaneous tissue split the IT band and then subsequently mobilized the vastus lateralis muscle off of the distal femur to obtain appropriate visualization from my plate proximally. I maintained exact hemostasis during this dissection and care to coagulate any perforating bleeders. I then made a anterior arthrotomy to sect into the knee joint hemarthrosis was noted and evacuated and thoroughly irrigation performed of the intra-articular fracture. This point time I direct visualization of the intercondylar split I was able to manually manipulate this and then utilizing a large Kamlesh tongue retractor while maintaining my traction by my environmental emergencies assistant I obtained reduction of congruent intra-articular surface and then kamlesh tongs held this with direct compression medial to lateral once this was then performed I placed 2 cortical screws around the periphery to lag the medial fracture fragment and lagged across the intercondylar split these were placed with cortical screws using lag by technique these had excellent fixation maintain my reduction. Once I was satisfied with this I prepared a place for the plate distally. I then confirmed with multiple orthogonal imaging as well as visualization directly plate was in appropriate position I placed K wires both proximally and distally took x-rays prior to screw placement to confirm my plate had appropriate fixation and working length proximally. Once confirmed fluoroscopic imaging to be in appropriate position as well as appropriate 8 hole lateral distal femur [place] plate I then subsequently brought the plate to bone interface utilizing cortical screws I started this p roximally just proximal supracondylar fracture to bring the plate to bone this did not create any deformity to the distal fracture fragment and fracture site while maintaining reduction by my environmental emergencies assistant I then subsequently placed additional cortical screws at my most top portion of the plate as well as distally utilizing cancellous screw in order to obtain fixation and compress the plate to bone distally once I was satisfied with maintaining my reduction and appropriate plate to bone interface I then subsequently locked and increased my construct fixation rigidity by locking screws. I then placed multiple locking screws distally and proximally appropriately spaced. Once locking fixation was placed I then took final fluoroscopic imaging as well as visualization of the joint intra-articularly showed no intra-articular screw placement as well as knee was taken through range of motion and demonstrated stable fixation with no evidence of fracture displacement. Satisfied with this final x-rays taken wound was then thoroughly irrigated hemostasis was maintained satisfactory vancomycin powder was placed incision site arthrotomy site was then reapproximated and closed as well as then closed the IT band with running strata fix suture and closed the subcutaneous and deep and superficial with running strata fix suture as well as close incision site with keri. Silverlon dressing applied patient was then appropriate prudently placed in bulky soft dressing and Fletcher wrap patient was awakened from anesthesia and taken to PACU in stable condition. Disposition: Patient taken to PACU in stable condition recovering well pain controlled. Will be returning to the floor postoperatively. DVT prophylaxis, postoperative antibiotics, postoperative TXA, pain control, PT/OT, internal medicine on board as primary, will be nonweightbearing to left lower extremity we will get a hinged knee brace for patient to accommodate for knee range of motion as she can tolerate but no weightbearing to the left lower extremity. We will follow-up in 2 weeks.
[2023-02-25] MEDS: iron polysaccharide complex 150 mg Capsule PO (18:19)
[2023-02-25] MEDS: calcium carb-vit d 600mg/400unit 1 Tablet 1 EACH PO (18:19)
[2023-02-25] MEDS: ondansetron 2 mg/ML SDV 2 mL 4 MG IVP (18:19)
[2023-02-25] MEDS: docusate sodium 100 mg Capsule PO (18:19)
[2023-02-25 21:25] LABS: Glucose Point of Care 112 mg/dL (70-110)
[2023-02-25 21:25] LABS: Glucose Point of Care 127 mg/dL (70-110)
[2023-02-25 21:26] LABS: Glucose Point of Care 91 mg/dL (70-110)
[2023-02-25] MEDS: atorvastatin 40 mg Tablet 20 MG PO (21:56)
[2023-02-25] MEDS: chlorhexidine gluconate 0.12% Btl 473 mL 30 ML MUCOUS MEM (22:01)
[2023-02-26] VITALS (13 sets, daily range): BP systolic 117–160; BP diastolic 62–76; PULSE 78–105; RESP 14–20; TEMP 36.7–37.7; O2SAT 90–95
[2023-02-26] MEDS: HYDROmorphone 1 mg/mL INJ 1 mL 0.5 MG IVP ×3 (02:06→20:13)
[2023-02-26] MEDS: vancomycin 1,000 MG in sodium chloride 0.9% 250 ML 250 MG IV (04:21)
[2023-02-26 05:10] LABS: Basophils % 0.3 %; Eosinophils % 0.2 %; Lymphocytes # 0.6 10^3/uL (0.8-4.8); Lymphocytes % 8.8 %; Mean Corpuscular HGB Conc 31.7 g/dL (30-55); Mean Corpuscular Hemoglobin 28.5 pg (27-33); Mean Corpuscular Volume 89.8 fl (85-98); Mean Platelet Volume 9.9 fL (7.4-10.4); Monocytes # 0.5 10^3/uL (0.2-0.9); Monocytes % 7.1 %; Neutrophils # 5.43 10^3/uL (1.8-7.7); Neutrophils % 83.3 %; Nucleated Red Blood Cells % 0 %; Platelet Count 244 10^3/cmm (157-399); Red Blood Count 3.23 10^6/uL (3.85-5.65); Red Cell Distribution Width 15.1 % (12.1-15.1); White Blood Count 6.51 10^3/uL (3.29-11.43)
[2023-02-26 05:31] LABS: Anion Gap 14.5 (5-19); Blood Urea Nitrogen 13 mg/dL (8-23); Calcium 8.4 mg/dL (8.5-10.5); Carbon Dioxide 24 mmol/L (22-29); Chloride 103 mmol/L (98-107); Glucose 85 mg/dL (65-115); Osmolality Calculated 283 mOsm/kg (285-295); Potassium 4.5 mmol/L (3.5-5.1); Sodium 137 mmol/L (136-145)
[2023-02-26] MEDS: ceFAZolin 2,000 MG in sodium chloride 0.9% (plus) 50 ML 100 MG IV ×2 (05:37→13:32)
[2023-02-26] MEDS: ketorolac 30 mg/mL INJ 15 MG IVP (06:32)
[2023-02-26 06:40] LABS: Glucose Point of Care 96 mg/dL (70-110)
[2023-02-26] MEDS: sennosides-docusate Tablet 1 TAB PO (08:44)
[2023-02-26] MEDS: multivitamin therapeutic Tablet 1 TAB PO (08:44)
[2023-02-26] MEDS: calcium carb-vit d 600mg/400unit 1 Tablet 1 EACH PO ×2 (08:44→16:54)
[2023-02-26] MEDS: docusate sodium 100 mg Capsule PO ×2 (08:44→16:54)
[2023-02-26] MEDS: ascorbic acid 500 mg Tablet 1000 MG PO ×2 (08:44→16:53)
[2023-02-26] MEDS: memantine 5 mg tablet 10 MG PO ×2 (08:44→16:53)
[2023-02-26] MEDS: iron polysaccharide complex 150 mg Capsule PO ×2 (08:45→16:53)
[2023-02-26] MEDS: enoxaparin 30 mg/0.3 mL Syringe SUBCUT (08:45)
[2023-02-26] MEDS: apixaban 5 mg Tablet PO ×2 (08:45→16:55)
[2023-02-26] MEDS: chlorhexidine gluconate 0.12% Btl 473 mL 30 ML MUCOUS MEM ×4 (08:45→20:22)
[2023-02-26 10:58] LABS: Glucose Point of Care 125 mg/dL (70-110)
--- NOTE | 2023-02-26 10:59 | P.PN_ITS ---
Subjective Subjective: Awaiting placement No events overnight Short-term memory loss Pleasant and cooperative Vitals/I&O/Wt Last Vital Signs Temp 98.5 F 02/26/23 07:10 Pulse 105 H 02/26/23 09:36 Resp 16 02/26/23 09:36 BP 143/72 02/26/23 07:10 Pulse Ox 94 02/26/23 09:36 O2 Del Method Room Air 02/26/23 09:36 O2 Flow Rate 0 02/25/23 22:13 02/25/23 02/26/23 02/26/23 22:59 06:59 14:59 Intake Total 50 / 560 410 / 970 120 / 120 Output Total 1150 / 1150 650 / 1800 Balance -1100 / -590 -240 / -830 120 / 120 Weight last 48 hrs Weight 58.967 kg Physical Exam Narrative: Working with PT Awake and alert Hemodynamically stable Short-term memory loss Abdomen soft Signs of dehydration improving S1, S2 Currently doing well on room air Urinary Catheter Management: Rizvi: Cath Placed During This Visit: yes, but has since been removed by the nurse Reason for Continuing Indwelling Catheter: Decision to DC Catheter Urinary Catheter Date of Insertion: 02/24/23 Urinary Catheter Time of Insertion: 18:19 Date Urinary Catheter Removed: 02/26/23 Time Urinary Catheter Discontinued: 06:29 Data 02/26/23 04:30 02/26/23 04:30 A&P Assessment and plan (1) Closed fracture of left distal femur: (2) Femur fracture, left: (3) Prosthetic joint infection: (4) Anemia: (5) Osteoarthritis of left knee: Plan Alzheimer's disease: Short-term memory loss No acute worsening Fracture status post intervention Awaiting placement Continue DVT prophylaxis with Eliquis Anemia stable Multiple myeloma work-up is pending Full code Work with PT No need to repeat labs for tomorrow Attestations 2 Medical Necessity Statement*: Continue medical management Diagnoses Closed fracture of left distal femur S72.402A Femur fracture, left S72.92XA Prosthetic joint infection T84.50XA Anemia D64.9 Osteoarthritis of left knee M17.12
[2023-02-26 11:30] LABS: PROTEIN, TOTAL 5.2 g/dL (6.1-8.1)
[2023-02-26] MEDS: oxyCODONE 5 mg IR Tab/Cap PO (12:20)
[2023-02-26] MEDS: lactulose oral liq 20 gm/30 mL UDC 10 GM PO (13:31)
[2023-02-26 14:54] LABS: Creatinine, Random Urine 65 mg/dL (20-275); Protein, Total, Random 18 mg/dL (5-24); Protein/Creatinine Ratio 0.277 (0.024-0.184); Protein/Creatinine Ratio 277 mg/g creat (24-184)
[2023-02-26] MEDS: morphine IR 15 mg Tablet PO (16:52)
[2023-02-26 17:04] LABS: Glucose Point of Care 188 mg/dL (70-110)
--- NOTE | 2023-02-26 17:21 | P.PN_ITS ---
Subjective Subjective: Patient is 1 day postop from Left distal femur ORIF. Denies any acute events overnight. He denies any fevers. Patient has been having quite a bit of pain in left knee. She has not done any weightbearing on left leg. Dressing is dry and in place. Vitals/I&O/Wt Last Vital Signs Temp 98.1 F 02/26/23 16:14 Pulse 86 02/26/23 16:14 Resp 18 02/26/23 16:52 BP 160/76 02/26/23 16:14 Pulse Ox 93 02/26/23 16:14 O2 Del Method Room Air 02/26/23 16:14 O2 Flow Rate 0 02/25/23 22:13 02/26/23 02/26/23 02/26/23 06:59 14:59 22:59 Intake Total 410 / 970 410 / 410 Output Total 650 / 1800 Balance -240 / -830 410 / 410 Physical Exam Const: COMMON NORMALS: alert GENERAL APPEARANCE: cooperative HENMT: COMMON NORMALS: atraumatic HEAD & SCALP: atraumatic Resp: EFFORT & INSPECTION: Yes able to speak in complete sentences and No respiratory distress Extremity: NARRATIVE EXTREMITY EXAM: Left leg?knee immobilizer and Fletcher wrap and dressing is dry and in place. Patient is able to form straight leg raise but does endorse some pain. Patient can dorsiflex and plantarflex foot. Pedal pulse 2+. Toes are warm and well- perfused with a normal cap refill under 2 seconds. Neuro: SENSORIUM/ORIENTATION: Yes alert Urinary Catheter Management: Rizvi: Cath Placed During This Visit: yes, but has since been removed by the nurse Reason for Continuing Indwelling Catheter: Decision to DC Catheter Urinary Catheter Date of Insertion: 02/24/23 Urinary Catheter Time of Insertion: 18:19 Date Urinary Catheter Removed: 02/26/23 Time Urinary Catheter Discontinued: 06:29 Data 02/26/23 04:30 02/26/23 04:30 A&P Assessment and plan (1) Closed fracture of left distal femur: (2) Status post closed fracture of left femur: Plan Plan: Imaging reviewed Labs reviewed Nonweightbearing left lower extremity Ice and elevate for pain and swelling Pain control PT work on knee ROM but no weightbearing Maintain knee immobilizer and keep dressing on and dry. VTE prophylaxis per medicine (lovenox) Attestations Medical Necessity Statement*: On going care for Left distal femur fracture Coding Level of Care Code Acute Code for Chg Fwd Diagnoses Closed fracture of left distal femur S72.402A Status post closed fracture of left femur Z87.81
[2023-02-26] MEDS: insulin lispro 100 unit/1 mL SUBCUT (17:39)
[2023-02-26 17:44] LABS: ALBUMIN 2.7 g/dL (3.8-4.8); ALPHA 1 GLOBULIN 0.4 g/dL (0.2-0.3); ALPHA 2 GLOBULIN 0.9 g/dL (0.5-0.9); BETA 1 GLOBULIN 0.4 g/dL (0.4-0.6); BETA 2 GLOBULIN 0.3 g/dL (0.2-0.5); GAMMA GLOBULIN 0.6 g/dL (0.8-1.7)
[2023-02-26 19:54] LABS: Vancomycin Trough 15.4 ug/mL (10-15)
[2023-02-26 20:12] LABS: Glucose Point of Care 95 mg/dL (70-110)
[2023-02-26] MEDS: atorvastatin 40 mg Tablet 20 MG PO (20:14)
[2023-02-27] MEDS: ketorolac 30 mg/mL INJ 15 MG IVP (01:37)
[2023-02-27 04:00] VITALS: BP 116/64; PULSE 69; RESP 16; TEMP 36.8; O2SAT 94
[2023-02-27 05:23] LABS: Basophils % 0.5 %; Eosinophils # 0.2 10^3/uL (0.0-0.8); Eosinophils % 2.6 %; Hematocrit 29.6 % (36-47); Lymphocytes # 0.8 10^3/uL (0.8-4.8); Lymphocytes % 12.7 %; Mean Corpuscular HGB Conc 32.1 g/dL (30-55); Mean Corpuscular Volume 90.2 fl (85-98); Mean Platelet Volume 9.4 fL (7.4-10.4); Monocytes # 0.5 10^3/uL (0.2-0.9); Monocytes % 7.1 %; Neutrophils # 4.96 10^3/uL (1.8-7.7); Neutrophils % 76.6 %; Nucleated Red Blood Cells % 0 %; Platelet Count 209 10^3/cmm (157-399); Red Blood Count 3.28 10^6/uL (3.85-5.65); Red Cell Distribution Width 15.2 % (12.1-15.1); White Blood Count 6.47 10^3/uL (3.29-11.43)
[2023-02-27 05:44] LABS: Anion Gap 13.6 (5-19); Blood Urea Nitrogen 16 mg/dL (8-23); Calcium 8.4 mg/dL (8.5-10.5); Carbon Dioxide 24 mmol/L (22-29); Chloride 102 mmol/L (98-107); Glucose 92 mg/dL (65-115); Osmolality Calculated 281 mOsm/kg (285-295); Potassium 4.6 mmol/L (3.5-5.1); Sodium 135 mmol/L (136-145)
[2023-02-27 06:22] LABS: SARS Covid-2 Antigen negative (Negative)
[2023-02-27 07:59] VITALS: BP 129/68; PULSE 83; RESP 16; TEMP 37.1; O2SAT 95
--- NOTE | 2023-02-27 08:34 | P.DS_ITS ---
Discharge Providers Date of Admission: 02/24/23 17:19 Date of Discharge: February 26, 2023 Attending Provider at Admission: Amara Murillo MD Attending Provider at Discharge: Amara Murillo MD Primary Care Provider: Rob Grant MD Diagnoses at Discharge Discharge Diagnosis (1) Closed fracture of left distal femur: Status: Acute (2) Femur fracture, left: Status: Acute (3) Chronic cystitis: Status: Acute (4) Prosthetic joint infection: Status: Acute (5) Anemia: Status: Acute (6) Recurrent UTI: Status: Chronic (7) Afib: Status: Chronic Qualifiers: Atrial fibrillation type: longstanding persistent Qualified Code(s): I48.11 - Longstanding persistent atrial fibrillation Permanent problem details: on digoxin, metoprolol, eliquis, follows with Dr Mitchell (8) Chronic anticoagulation: Status: Chronic Permanent problem details: eliquis, secondary to atrial fibrillation (9) Bilateral knee pain: Status: Chronic (10) Lower extremity edema: Status: Chronic Reason for Visit Reason for Visit: Knee Pain Hospital Course Hospital Course 82-year female who presented to hospital after sustaining a fall at home while taking care of her intellectually challenged daughter, she sustained left distal femur fracture there was concern for punctate lesion hence MRI was requested which did not show such changes it is showing large lipohemarthrosis with soft tissue edema, Dr. Kuhn requested multiple myeloma work-up however she is not showing typical signs of worsening kidney function with hypercalcemia she does have chronic anemia, went for left distal femur ORIF, no postoperative complications, patient will be discharged to a alf, she does have a lot of support and help at home from the family members. Please note, she has short-term memory loss she did not show any signs of worsening during hospitalization. Patient uses compression stockings for her lymphedema of bilateral lower extremities, for her right knee prosthetic joint infection she is on chronic antibiotics and is following up with an orthopedic surgeon in [place] gets daily dressing change dry sterile dressing For DVT prophylaxis we will resume her Eliquis which she has not taken in last 7 days, I would like to discontinue digoxin considering her age and use of Lasix she will be considered high risk to use this medication for her A-fib, I will add metoprolol instead Physical Exam Narrative: Pleasant cooperative GCS 15 Rizvi cath removed Pleasant and cooperative Euvolemic Currently on room air No active pain Lymphedema of legs Urinary Catheter Management: Rizvi: Cath Placed During This Visit: yes, but has since been removed by the nurse Reason for Continuing Indwelling Catheter: Decision to DC Catheter Urinary Catheter Date of Insertion: 02/24/23 Urinary Catheter Time of Insertion: 18:19 Date Urinary Catheter Removed: 02/26/23 Time Urinary Catheter Discontinued: 06:29 Discharge Data Studies Completed and Pending Completed Studies During Hospitalization Category Date Time Status CT knee LT wo con* [id number] Stat Cat Scan 02/24/23 14:55 Completed XR knee LT 3V* [id number] Routine Exams 02/25/23 17:26 Completed XR knee LT 4V [id number] Stat Exams 02/24/23 13:53 Completed MR knee LT wo/w con [id number] Stat MRI 02/25/23 06:00 Completed Pending at discharge Category Date Time Status Basic Metabolic Panel AM LABS Lab 02/27/23 04:00 Ordered Basic Metabolic Panel AM LABS Lab 02/28/23 04:00 Ordered Complete Blood Count w/Auto AM LABS Lab 02/27/23 04:00 Ordered Complete Blood Count w/Auto AM LABS Lab 02/28/23 04:00 Ordered SPEP [Total Protein Electrophoresis] Routine Lab 02/24/23 21:54 Received Urine Protein Electrop Random Routine Lab 02/25/23 08:05 Received Vancomycin Trough Timed Lab 02/26/23 19:00 Ordered Radiology Impressions Knee CT 02/24/23 14:55 IMPRESSION: Fracture of the distal medial femoral metaphysis extending to the intercondylar fossa on the coronal images and extending to the inferior patellofemoral joint space margin on the axial images, with associated mild cortical deformity or offset along the medial margin. Knee X-Ray 02/25/23 17:26 IMPRESSION: 1. Distal lateral femoral orthopedic plate in place. 2. Severe tricompartmental osteoarthritis of the knee. 3. Scattered vascular calcifications. 4. Postsurgical soft tissue findings about the lower extremity. Laboratory Results WBC 6.51 10^3/uL (3.29-11.43) 02/26/23 04:30 RBC 3.23 10^6/uL (3.85-5.65) L 02/26/23 04:30 Hgb 9.20 g/dL (11.27-16.99) L 02/26/23 04:30 Hct 29.0 % (36-47) L 02/26/23 04:30 MCV 89.8 fl (85-98) 02/26/23 04:30 MCH 28.5 pg (27-33) 02/26/23 04:30 MCHC 31.7 g/dL (30-55) 02/26/23 04:30 RDW 15.1 % (12.1-15.1) 02/26/23 04:30 Plt Count 244 10^3/cmm (157-399) 02/26/23 04:30 MPV 9.9 fL (7.4-10.4) 02/26/23 04:30 Neut % (Auto) 83.3 % 02/26/23 04:30 Lymph % (Auto) 8.8 % 02/26/23 04:30 [facility] % (Auto) 7.1 % 02/26/23 04:30 Eos % (Auto) 0.2 % 02/26/23 04:30 Baso % (Auto) 0.3 % 02/26/23 04:30 Neut # (Auto) 5.43 10^3/uL (1.8-7.7) 02/26/23 04:30 Lymph # (Auto) 0.6 10^3/uL (0.8-4.8) L 02/26/23 04:30 [facility] # (Auto) 0.5 10^3/uL (0.2-0.9) 02/26/23 04:30 Eos # (Auto) 0.0 10^3/uL (0.0-0.8) 02/26/23 04:30 Baso # (Auto) 0.0 10^3/uL (0.0-0.1) 02/26/23 04:30 Nucleated RBC % (auto) 0 % 02/26/23 04:30 Nucleated RBCs # 0.0 /100WBC 02/26/23 04:30 PT 14.60 SECONDS (12.1-14.9) 02/24/23 16:05 INR 1.11 (0.8-1.2) 02/24/23 16:05 APTT 28.2 SECONDS (23.9-36.7) 02/24/23 16:05 Sodium 137 mmol/L (136-145) 02/26/23 04:30 Potassium 4.5 mmol/L (3.5-5.1) 02/26/23 04:30 Chloride 103 mmol/L (98-107) 02/26/23 04:30 Carbon Dioxide 24 mmol/L (22-29) 02/26/23 04:30 Anion Gap 14.5 (5-19) 02/26/23 04:30 BUN 13 mg/dL (8-23) 02/26/23 04:30 Creatinine 0.6 mg/dL (0.5-0.9) 02/26/23 04:30 GFR Calculation Not Reportable 02/26/23 04:30 Glucose 85 mg/dL (65-115) 02/26/23 04:30 POC Glucose 96 mg/dL (70-110) 02/26/23 06:28 Calculated Osmolality 283 mOsm/kg (285-295) L 02/26/23 04:30 Calcium 8.4 mg/dL (8.5-10.5) L 02/26/23 04:30 Magnesium 1.8 mg/dL (1.7-2.3) 02/25/23 05:23 Total Bilirubin 0.4 mg/dL (0.15-1.2) 02/24/23 16:05 AST 18 U/L (0-32) 02/24/23 16:05 ALT 13 U/L (0-33) 02/24/23 16:05 Alkaline Phosphatase 162 U/L (35-105) H 02/24/23 16:05 C-Reactive Protein 36.5 mg/L (0.0-4.9) H 02/25/23 05:23 Total Protein 6.3 g/dL (6.6-8.7) L 02/24/23 16:05 Albumin 3.6 g/dL (3.5-5.2) 02/24/23 16:05 Globulin 2.7 g/dL (1.3-4.6) 02/24/23 16:05 Blood Type A Positive 02/25/23 08:50 Rho(D) Type Positive 02/25/23 08:50 Antibody Screen Negative 02/25/23 08:50 Vitals Last Vital Signs Temp 98.5 F 02/26/23 07:10 Pulse 105 H 02/26/23 09:36 Resp 16 02/26/23 09:36 BP 143/72 02/26/23 07:10 Pulse Ox 94 02/26/23 09:36 O2 Del Method Room Air 02/26/23 09:36 O2 Flow Rate 0 02/25/23 22:13 Discharge Plan Discharge Patient Disposition: Xfer SNF Condition: Stable Prescriptions: New Stool Softener-Laxative 8.6-50 mg Tablet 1 tab PO DAILY Qty: 10 0RF oxycodone-acetaminophen 5-325 mg Tablet 1 tab PO Q4H PRN (Reason: Moderate To Severe Pain) Qty: 10 0RF metoprolol tartrate 25 mg tablet 25 mg PO BID Qty: 90 3RF Continued calcium carb-vitamin D3-vit K2 500 mg calcium- 200 unit-90 mcg tablet 1 tab PO DAILY acetaminophen [Tylenol] 325 mg capsule 325 mg PO QID PRN (Reason: Pain) magnesium 250 mg tablet 250 mg PO DAILY memantine [Namenda] 10 mg tablet 10 mg PO BID Qty: 180 3RF doxycycline hyclate 100 mg capsule 100 mg PO BID 30 Days Qty: 60 12RF lisinopril 10 mg tablet 10 mg PO DAILY Qty: 90 3RF methenamine hippurate 1 gram tablet 1 g PO BID Qty: 180 3RF Rx Instructions: TAKE 1000 MG OF VITAMIN C WITH EACH DOSE OF METHENAMINE loratadine 10 mg tablet 10 mg PO DAILY Qty: 14 0RF (DME) Compression socks up to knees See Rx Instructions .Route .MEDSUPPLY Qty: 1 0RF Rx Instructions: As directed atorvastatin 10 mg tablet 10 mg PO BEDTIME Qty: 90 1RF ascorbic acid (vitamin C) [Vitamin C] 1,000 mg Tablet 1,000 mg PO BID cyanocobalamin (vitamin B-12) [Vitamin B-12] 100 mcg Tablet 100 mcg PO DAILY pantoprazole [Protonix] 40 mg tablet,delayed release (DR/EC) 40 mg PO BID PRN (Reason: Acid Reflux) galantamine 8 mg capsule,ext rel. pellets 24 hr 8 mg PO BID Eliquis 5 mg tablet 5 mg PO BID Qty: 120 0RF Changed furosemide 40 mg tablet 20 mg PO EVERY OTHER DAY Qty: 30 0RF Discontinued metoprolol succinate 25 mg tablet extended release 24 hr 25 mg PO DAILY Qty: 90 0RF digoxin 125 mcg (0.125 mg) tablet 0.125 mcg PO EVERY OTHER DAY Discharge Orders: Discharge Order (Routine); Ordered 02/27/23 Ordered By: Amara Murillo Other Ambulatory Orders: DME: [employer] (Order) Location: None Selected Ordered By: Amara Murillo Referrals: [facility] [Outside] Artem Kuhn DO [Physician] - 2 weeks Rob Grant MD [Primary Care Provider] - Patient Instructions: Metoprolol (By mouth), Oxycodone/Acetaminophen (By mouth), Laxative, Stool Softeners (By mouth), ORIF of a Leg Fracture (GEN), Opioid Safety Discharge Attestations Time Spent in Discharge Care*: greater than 30 min Status at Discharge: Cognitive status at discharge: cognitively intact , Behavioral status at discharge: cooperative , Quality Metrics Clinical Quality Measures [ No reported AMI, CVA or VTE this stay] Coding Level of Care Code Acute Code for Chg Fwd Diagnoses Closed fracture of left distal femur S72.402A Femur fracture, left S72.92XA Chronic cystitis N30.20 Prosthetic joint infection T84.50XA Anemia D64.9 Recurrent UTI N39.0 Afib I48.11 Atrial fibrillation type: longstanding persistent Chronic anticoagulation Z79.01 Bilateral knee pain M25.561; M25.562 Lower extremity edema R60.0
[2023-02-27 09:35] VITALS: PULSE 83; RESP 16; O2SAT 95
[2023-02-27 10:21] VITALS: RESP 14
[2023-02-27] MEDS: oxyCODONE-APAP 5-325 mg Tablet PO (10:21)
[2023-02-27] MEDS: apixaban 5 mg Tablet PO (10:22)
[2023-02-27] MEDS: memantine 5 mg tablet 10 MG PO (10:22)
[2023-02-27] MEDS: iron polysaccharide complex 150 mg Capsule PO (10:22)
[2023-02-27] MEDS: ascorbic acid 500 mg Tablet 1000 MG PO (10:22)
[2023-02-27] MEDS: multivitamin therapeutic Tablet 1 TAB PO (10:22)
[2023-02-27] MEDS: docusate sodium 100 mg Capsule PO (10:22)
[2023-02-27] MEDS: calcium carb-vit d 600mg/400unit 1 Tablet 1 EACH PO (10:22)
[2023-02-27] MEDS: sennosides-docusate Tablet 1 TAB PO (10:22)
[2023-02-27] MEDS: chlorhexidine gluconate 0.12% Btl 473 mL 30 ML MUCOUS MEM (10:25)
--- NOTE | 2023-02-27 10:45 | PC.SOCIAL ---
IMM Update pg 2 of IMM updated and reviewed w/ patient. Copy provided and copy dated, initialed and placed in chart.
--- NOTE | 2023-02-27 11:47 | PC.NURSE ---
report called to Alexandra DUVALL at [facility].
[2023-02-27 11:51] LABS: Glucose Point of Care 182 mg/dL (70-110)
--- NOTE | 2023-02-27 12:05 | PM.PN ---
Subjective Subjective: Patient seen and examined prior to discharge she is recovering well pain is controlled medications will discharge to SNF today. We will follow-up in 2 weeks. Continue nonweightbearing. We will get knee brace to accommodate for knee range of motion as tolerated but continue nonweightbearing Vitals/I&O/Wt Last Vital Signs Temp 98.7 F 02/27/23 07:59 Pulse 83 02/27/23 09:35 Resp 14 02/27/23 12:59 BP 129/68 02/27/23 07:59 Pulse Ox 95 02/27/23 09:35 O2 Del Method Room Air 02/27/23 09:35 O2 Flow Rate 0 02/25/23 22:13 Physical Exam Const: COMMON NORMALS: alert GENERAL APPEARANCE: cooperative HENMT: COMMON NORMALS: atraumatic HEAD & SCALP: atraumatic Resp: EFFORT & INSPECTION: Yes able to speak in complete sentences and No respiratory distress Extremity: NARRATIVE EXTREMITY EXAM: Left leg?knee immobilizer and Fletcher wrap and dressing is dry and in place. Patient is able to form straight leg raise but does endorse some pain. Compartments soft and compressible patient can dorsiflex and plantarflex foot. Pedal pulse 2+. Toes are warm and well-perfused with a normal cap refill under 2 seconds. Neuro: SENSORIUM/ORIENTATION: Yes alert Urinary Catheter Management: Rizvi: Cath Placed During This Visit: yes, but has since been removed by the nurse Reason for Continuing Indwelling Catheter: Acute Urinary Retention or Obstruction Urinary Catheter Date of Insertion: 02/26/23 Urinary Catheter Time of Insertion: 19:31 Date Urinary Catheter Removed: 02/26/23 Time Urinary Catheter Discontinued: 06:29 Data 02/27/23 05:11 02/27/23 05:11 Xray Ortho: My impression: Postoperative x-rays demonstrate stable ORIF left distal femur fracture with appropriate reduction and stable fixation. A&P Assessment and plan (1) Closed fracture of left distal femur: (2) Status post closed fracture of left femur: Plan Plan: Imaging reviewed Labs reviewed Nonweightbearing left lower extremity Ice and elevate for pain and swelling Pain control PT work on knee ROM but no weightbearing Transition to hinged knee brace to accommodate for knee range of motion VTE prophylaxis per medicine -patient will resume home Eliquis 5 Patient stable for discharge from orthopedic standpoint no further orthopedic surgical intervention required at this time orthopedic surgery team will sign off and follow peripherally we will follow in 2 weeks in the office. Attestations Medical Necessity Statement*: On going care for Left distal femur fracture Coding Level of Care Code Acute Code for Chg Fwd Diagnoses Closed fracture of left distal femur S72.402A Status post closed fracture of left femur Z87.81 Time Spent (min) 15
[2023-02-27] MEDS: insulin lispro 100 unit/1 mL SUBCUT (12:44)
[2023-02-27 12:59] VITALS: RESP 14
[2023-03-03 16:34] LABS: Albumin,Urine Random 100 %; Alpha-1-Globulins Urine Random 0 %; Alpha-2-Globulins Urine Random 0 %; Beta-Globulin,Urine Random 0 %; Gamma Globulin,Urine Random 0 %
== END 2023-02-27 13:00 | disposition skilled nursing facility (03) | DRG 481 ==
LOC: ER 14:20 → MEDSURG 17:20
PROVIDERS: Student in an Organized Health Care Education/Training Program; Admitting Provider Internal Medicine; Emergency Provider Internal Medicine; PCP Family Medicine; Visit Provider Internal Medicine
PROC: 0QSC04Z Reposition Left Lower Femur with Internal Fixation Device, Open Approach (ICD-10-PCS; principal; 2023-02-25 11:55)
DX: S72.412A Displaced unspecified condyle fracture of lower end of left femur, initial encounter for closed fracture (principal); I48.11 Longstanding persistent atrial fibrillation; I50.32 Chronic diastolic (congestive) heart failure; W18.30XA Fall on same level, unspecified, initial encounter; T45.516A Underdosing of anticoagulants, initial encounter; Z91.128 Patient's intentional underdosing of medication regimen for other reason; Z79.01 Long term (current) use of anticoagulants; G30.9 Alzheimer's disease, unspecified; F02.80 Dementia in other diseases classified elsewhere, unspecified severity, without behavioral disturbance, psychotic disturbance, mood disturbance, and anxiety; T84.53XD Infection and inflammatory reaction due to internal right knee prosthesis, subsequent encounter; E11.9 Type 2 diabetes mellitus without complications; E78.5 Hyperlipidemia, unspecified; Z87.440 Personal history of urinary (tract) infections; Z89.429 Acquired absence of other toe(s), unspecified side; N30.20 Other chronic cystitis without hematuria; Z79.2 Long term (current) use of antibiotics; E86.0 Dehydration; M17.12 Unilateral primary osteoarthritis, left knee
CPT/HCPCS: 36415; 36416; 51702; 73562; 73564; 73700; 73723; 76000; 80048; 80053; 80202; 82570; 82962; 83735; 84155; 84156; 84165; 84166; 85025; 85610; 85730; 86140; 86850; 86900; 87426; 93005; 96372; 97110; 97116; 97161; 97167; 97530; 97760; 99285; C1713; J0131; J0690; J1100; J1170; J1650; J1815; J1885; J2405; J2704; J2795; J3010; J3370; J7050; L1812; P9045

== ENCOUNTER → 2023-03-19 08:28 | Outpatient (BNVA) | payer OTHER, MEDICARE, SELFPAY | PROVIDERS: PCP Family Medicine; Visit Provider Physician Assistant | DX: Z48.89 Encounter for other specified surgical aftercare; Z98.890 Other specified postprocedural states; S72.402A Unspecified fracture of lower end of left femur, initial encounter for closed fracture; X58.XXXA Exposure to other specified factors, initial encounter | CPT/HCPCS: 73562; 99024 ==

== ENCOUNTER → 2023-04-16 12:58 | Outpatient (BNVA) | payer MEDICARE, OTHER, SELFPAY | PROVIDERS: PCP Family Medicine; Visit Provider Physician Assistant | DX: Z98.890 Other specified postprocedural states; S72.402D Unspecified fracture of lower end of left femur, subsequent encounter for closed fracture with routine healing; X58.XXXD Exposure to other specified factors, subsequent encounter | CPT/HCPCS: 73562; 99024; 99213 ==

== ENCOUNTER → 2023-04-29 13:59 | Outpatient (BNVA) | payer MEDICARE, OTHER, SELFPAY | PROVIDERS: PCP Family Medicine; Visit Provider Specialist | DX: R41.3 Other amnesia (principal); G30.9 Alzheimer's disease, unspecified; F02.80 Dementia in other diseases classified elsewhere, unspecified severity, without behavioral disturbance, psychotic disturbance, mood disturbance, and anxiety | CPT/HCPCS: 99213 ==

== ENCOUNTER → 2023-06-16 13:02 | Outpatient (BNVA) | payer MEDICARE, OTHER, SELFPAY | PROVIDERS: PCP Family Medicine; Visit Provider Physician Assistant | DX: Z98.890 Other specified postprocedural states (principal); S72.402D Unspecified fracture of lower end of left femur, subsequent encounter for closed fracture with routine healing; X58.XXXD Exposure to other specified factors, subsequent encounter | CPT/HCPCS: 73560; 73565; 99213 ==

== ENCOUNTER → 2023-06-30 09:09 | Outpatient (BNVA) | payer MEDICARE, OTHER, SELFPAY | PROVIDERS: PCP Family Medicine; Visit Provider Thoracic Surgery (Cardiothoracic Vascular Surgery) | DX: T81.31XD Disruption of external operation (surgical) wound, not elsewhere classified, subsequent encounter (principal); Y83.8 Other surgical procedures as the cause of abnormal reaction of the patient, or of later complication, without mention of misadventure at the time of the procedure | CPT/HCPCS: 87070; 87176; 87205; 97597; 99213; A6212 ==

== ENCOUNTER → 2023-07-28 10:41 | Outpatient (BNVA) | payer MEDICARE, OTHER, SELFPAY | PROVIDERS: PCP Family Medicine; Visit Provider Thoracic Surgery (Cardiothoracic Vascular Surgery) | DX: I96 Gangrene, not elsewhere classified (principal); T81.31XD Disruption of external operation (surgical) wound, not elsewhere classified, subsequent encounter; Y83.8 Other surgical procedures as the cause of abnormal reaction of the patient, or of later complication, without mention of misadventure at the time of the procedure | CPT/HCPCS: 97597; A6212 ==

== ENCOUNTER → 2023-08-25 10:47 | Outpatient (BNVA) | payer MEDICARE, OTHER, SELFPAY | PROVIDERS: PCP Family Medicine; Visit Provider Thoracic Surgery (Cardiothoracic Vascular Surgery) | DX: T81.31XD Disruption of external operation (surgical) wound, not elsewhere classified, subsequent encounter (principal); Y83.8 Other surgical procedures as the cause of abnormal reaction of the patient, or of later complication, without mention of misadventure at the time of the procedure | CPT/HCPCS: 97597 ==

== ENCOUNTER → 2023-09-22 10:43 | Outpatient (BNVA) | payer MEDICARE, OTHER, SELFPAY | PROVIDERS: PCP Family Medicine; Visit Provider Thoracic Surgery (Cardiothoracic Vascular Surgery) | DX: I96 Gangrene, not elsewhere classified (principal); T81.31XD Disruption of external operation (surgical) wound, not elsewhere classified, subsequent encounter; Y83.8 Other surgical procedures as the cause of abnormal reaction of the patient, or of later complication, without mention of misadventure at the time of the procedure | CPT/HCPCS: 97597 ==

== ENCOUNTER → 2023-10-01 15:43 | Outpatient (BNVA) | payer MEDICARE, OTHER, SELFPAY | PROVIDERS: PCP Family Medicine; Visit Provider Registered Nurse Neonatal Intensive Care | DX: R30.9 Painful micturition, unspecified (principal); N39.0 Urinary tract infection, site not specified | CPT/HCPCS: 81000; 87077; 87086; 87184 ==

== ENCOUNTER → 2023-10-20 13:08 | Outpatient (BNVA) | payer MEDICARE, OTHER, SELFPAY | PROVIDERS: PCP Family Medicine; Visit Provider Physician Assistant | DX: M17.12 Unilateral primary osteoarthritis, left knee (principal); Z87.81 Personal history of (healed) traumatic fracture | CPT/HCPCS: 73562; 97597 ==

== ENCOUNTER → 2023-10-28 14:45 | Outpatient (BNVA) | payer MEDICARE, OTHER, SELFPAY | PROVIDERS: PCP Family Medicine; Visit Provider Specialist | DX: R41.3 Other amnesia (principal); G30.9 Alzheimer's disease, unspecified; F02.80 Dementia in other diseases classified elsewhere, unspecified severity, without behavioral disturbance, psychotic disturbance, mood disturbance, and anxiety | CPT/HCPCS: 99213 ==

== ENCOUNTER → 2023-11-18 13:18 | Outpatient (BNVA) | payer MEDICARE, OTHER, SELFPAY | PROVIDERS: PCP Family Medicine; Visit Provider Thoracic Surgery (Cardiothoracic Vascular Surgery) | DX: T81.31XD Disruption of external operation (surgical) wound, not elsewhere classified, subsequent encounter (principal); Y83.8 Other surgical procedures as the cause of abnormal reaction of the patient, or of later complication, without mention of misadventure at the time of the procedure | CPT/HCPCS: 97597 ==

== ENCOUNTER → 2023-12-28 10:00 | Outpatient (BNVA) | payer MEDICARE, OTHER, SELFPAY | PROVIDERS: PCP Family Medicine; Visit Provider Thoracic Surgery (Cardiothoracic Vascular Surgery) | DX: L98.491 Non-pressure chronic ulcer of skin of other sites limited to breakdown of skin (principal) | CPT/HCPCS: A6212 ==

== ENCOUNTER → 2024-02-01 10:43 | Outpatient (BNVA) | payer MEDICARE, OTHER, SELFPAY | PROVIDERS: PCP Family Medicine; Visit Provider Thoracic Surgery (Cardiothoracic Vascular Surgery) | DX: L98.491 Non-pressure chronic ulcer of skin of other sites limited to breakdown of skin (principal) | CPT/HCPCS: 99212; A6212 ==

== ENCOUNTER 2024-02-04 21:46 | Emergency (ER) | payer MEDICARE, OTHER, SELFPAY ==
[2024-02-04 21:53] VITALS: BP 198/88; PULSE 63; RESP 16; TEMP 36.7; O2SAT 99; BMI 21.6
[2024-02-04 22:00] VITALS: BP 179/89; PULSE 62; O2SAT 98
--- NOTE | 2024-02-04 22:08 | XRR_ITS ---
PROCEDURE INFORMATION: Exam: XR Left Hand Exam date and time: 02/04/2024 10:13 PM Age: 83 years old Clinical indication: Injury or trauma; Fall; Blunt trauma (contusions or hematomas); Hand; Left; Additional info: Fall/pain/deformity TECHNIQUE: Imaging protocol: Radiologic exam of the left hand. Views: 3 or more views. COMPARISON: No relevant prior studies available. FINDINGS: Bones/joints: Mildly displaced oblique fracture through the base of the 4th finger proximal phalanx without intra-articular involvement. No dislocation. 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 Soft tissues: Soft tissue swelling at the base of the 4th finger. XR/XR hand LT min 3V* [id number] IMPRESSION: Acute 4th digit proximal phalanx fracture.
--- NOTE | 2024-02-04 22:08 | XRR_ITS ---
PROCEDURE INFORMATION: Exam: XR Left Knee Exam date and time: 02/04/2024 10:13 PM Age: 83 years old Clinical indication: Injury or trauma; Fall; Blunt trauma; Knee; Left; Prior surgery; Surgery date: 6+ months; Surgery type: Plates and screws; Additional info: Fall/pain TECHNIQUE: Imaging protocol: Radiologic exam of the left knee. Views: 3 views. COMPARISON: CR XR knee LT 3V* [id number] 10/20/2023 1:16 PM FINDINGS: Bones/joints: Generalized osteopenia. No acute fracture or dislocation. Stable postsurgical changes from ORIF of the distal femur with no evidence of hardware complication. Severe left knee degenerative joint disease. Soft tissues: Unremarkable. Vasculature: Vascular calcification. XR/XR knee LT 3V* [id number] IMPRESSION: No acute bony findings.
[2024-02-04] MEDS: amoxicillin-clav 875-125 mg Tablet 1 TAB PO (22:30)
--- NOTE | 2024-02-04 22:33 | ED_ITS ---
HPI - Fall General: Chief Complaint: Fall Stated Complaint: fall left hand/arm injury left knee Time Seen by Provider: 02/04/24 21:58 Source: patient and family Mode of arrival: ambulatory Limitations: no limitations History of Present Illness: Patient is an 83-year-old female presenting to the emergency department due to a fall prior to arrival. Patient was helping transfer a mentally handicapped f amily member, when the family member fell into the patient and injured her left knee and left forearm/left hand. She has a history of previous surgery on that left knee, states the pain is diffuse and she has had pain with walking. There is a large skin tear reported to her left forearm that has bandage on prior to arrival. Also is reporting pain to her left digits, where there is deformity noted. She took 2 extra strength Tylenol prior to presenting, has no other complaints. She did not hit her head or lose consciousness with this injury. Patient also is reporting unrelated redness to her right arm, stating she has a puppy that has been biting her repeatedly and the redness is slowly gotten worse. MD complaint: fall Onset (ago): minute(s) Fall from: other (Family member fell into her) Fall witnessed: yes, by family Place fall occurred: home Loss of consciousness: None Prolonged down time: no Symptoms prior to fall: none Location of injury - extremities: Left: forearm, hand and knee Associated symptoms-after fall: Denies abdominal pain, chest pain, headache(s) or neck pain Related Data Home Medications Medication Instructions Recorded Confirmed acetaminophen 325 mg capsule 325 mg PO QID PRN Pain 06/14/19 10/28/23 (Tylenol) magnesium 250 mg tablet 250 mg PO DAILY 06/14/19 10/28/23 calcium carbonate 500 mg-vitamin 1 tab PO DAILY 12/26/20 10/28/23 D3 200 unit-vitamin K2 90 mcg tablet ascorbic acid (vitamin C) 1,000 mg 1,000 mg PO BID 06/16/22 10/28/23 tablet (Vitamin C) cyanocobalamin (vitamin B-12) 100 100 mcg PO DAILY 08/04/22 10/28/23 mcg tablet (Vitamin B-12) pantoprazole 40 mg tablet,delayed 40 mg PO BID PRN Acid Reflux 01/07/23 10/28/23 release (Protonix) Previous Rx's Medication Instructions Recorded lisinopril 10 mg tablet 10 mg PO DAILY #90 tabs 03/05/22 atorvastatin 10 mg tablet 10 mg PO BEDTIME #90 tabs 04/08/22 loratadine 10 mg tablet 10 mg PO DAILY #14 tabs 04/18/22 doxycycline hyclate 100 mg capsule 100 mg PO BID 30 days #60 caps 08/08/22 methenamine hippurate 1 gram tablet 1 g PO BID #180 tabs 11/05/22 Compression socks up to knees #1 ea 01/14/23 oxycodone-acetaminophen 5 mg-325 1 tab PO Q4H PRN Moderate To 02/26/23 mg tablet Severe Pain #10 tabs sennosides 8.6 mg-docusate sodium 1 tab PO DAILY #10 tabs 02/26/23 50 mg tablet (Stool Softener-Laxative) furosemide 40 mg tablet 20 mg (1/2 x 40 mg) PO EVERY OTHER 05/29/23 DAY #30 tabs potassium chloride 20 mEq 40 meq (2 x 20 mEq) PO DAILY 10 06/11/23 tablet,extended release(part/cryst) days #20 tabs metoprolol tartrate 25 mg tablet 25 mg PO BID #180 tabs 06/12/23 galantamine 8 mg 24 hr See Rx Instructions .Route 07/21/23 capsule,extended release .COMPLEX #90 caps cephalexin 500 mg capsule 500 mg PO BID 7 days #14 caps 10/01/23 nitrofurantoin 100 mg PO BID 7 days #14 caps 10/04/23 monohydrate/macrocrystals 100 mg capsule (Macrobid) memantine 10 mg tablet 10 mg PO BID #180 tabs 11/20/23 apixaban 2.5 mg tablet (Eliquis) 2.5 mg PO BID #180 tabs 12/30/23 amoxicillin 875 mg-potassium 1 tab PO BID 10 days #20 tabs 02/04/24 clavulanate 125 mg tablet Allergies Allergy/AdvReac Type Severity Reaction Status Date / Time ezetimibe [From Zetia] Allergy unknown Verified 10/28/23 15:26 fenofibrate Allergy unknown Verified 10/28/23 15:26 lovastatin Allergy unknown Verified 10/28/23 15:26 simvastatin [From Vytorin] Allergy unknown Verified 10/28/23 15:26 Review of Systems General: Reports: 10 or more systems reviewed and unremarkable except in HPI and below Const: Reports: other (Fall); Denies: fever(s) or chills Card: Denies: chest pain Resp: Denies: dyspnea or productive cough GI: Denies: abdominal pain, nausea, vomiting or diarrhea : Denies: flank pain Musc: Reports: extremity pain (Left hand and forearm) and joint pain (Left knee); Denies: neck pain, back pain, extremity swelling, joint swelling, joint redness, joint warmth, limited range of motion or muscle weakness Skin/Breast: Reports: erythema (Right forearm); Denies: rash Neuro: Denies: headache(s), numbness in extremities or weakness in extremities PFSH ED PFSH: Medical History Afib on digoxin, metoprolol, eliquis, follows with Dr Mitchell Status post closed fracture of left femur Closed fracture of left distal femur Femur fracture, left Chronic cystitis Prosthetic joint infection Anemia Osteoarthritis of left knee Left knee pain 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, treated with chronic doxycycline, followed by Dr Catina CHÁVEZ in [place], and referred to specialist in [facility] Essential hypertension Alzheimer disease Dyslipidemia Urgency incontinence Lower extremity edema Chronic venous insufficiency Valgus deformity, not elsewhere classified, left knee Primary osteoarthritis of left knee Bilateral knee pain Diabetic peripheral neuropathy associated with type 2 diabetes mellitus diabetes resolved with weight loss, neuropathy persisted DM type 2 (diabetes mellitus, type 2) Improved after weight loss not on any antihyperglycemics Chronic anticoagulation eliquis, secondary to atrial fibrillation Bueno esophagus Recurrent UTI Incomplete emptying of bladder follows with [facility] Surgical History History of bilateral cataract extraction History of hysterectomy Amputated toe of right foot History of tonsillectomy History of appendectomy History of knee replacement right knee, with subsequent revision and later infection in replaced joint, treated with chronic doxycycline, followed by [facility]/O shoulder surgery Family History Father , at age 80 Cancer Bleeding disorder Diabetes Mother , at age 36 complication Other Seizure Denies family history of CAD (coronary artery disease) Clotting disorder Dementia Chronic kidney disease (CKD) Suicide Anesthesia complication Lung disease Stroke Social History Smoking and tobacco/nicotine status: never used tobacco/nicotine Second hand smoke exposure: No Alcohol intake: current Alcohol intake frequency: holidays/special occasions only Alcohol type: wine Substance/Drug Use: never Adopted: No Caregiver/support person: No Lives independently: Yes Marital status: / Current occupational status: retired Physical Exam Const: COMMON NORMALS: no acute distress, patient oriented x3, no limitations, healthy appearing, alert and well nourished HENMT: COMMON NORMALS: normocephalic and atraumatic HEAD & SCALP: normocephalic and atraumatic Neck/C-Spine: COMMON NORMALS: full ROM, supple and no meningeal signs Resp: COMMON NORMALS: normal respiratory effort, No use of accessory muscles and clear to auscultation bilaterally AUSCULTATION: clear to auscultation bilaterally Cardio: COMMON NORMALS: regular rate and regular rhythm RATE: regular rate RHYTHM: regular rhythm Extremity: NARRATIVE EXTREMITY EXAM: There is noticeable deformity of the left ring finger. Large skin tear to left forearm. Tenderness to palpation of this area, and tenderness to palpation diffusely within the left hand. Chronic bilateral lower extremity edema. Left knee diffusely tender to palpation, no obvious swelling when compared to the right. Gait unable to be assessed. No distal sensory changes. Neuro: COMMON NORMALS: patient oriented x3, moves all extremities, no focal motor deficits and no sensory deficits noted SENSORIUM/ORIENTATION: Yes alert MENINGEAL SIGNS: Yes no meningeal signs Skin: NARRATIVE SKIN EXAM: Skin tear as reported, also diffuse erythema noted to the dorsal aspect of the right forearm. Course Vital Signs: Vital signs: Vital Signs Temperature 98.1 F 02/04/24 21:53 Pulse Rate 57 L 02/05/24 00:00 Respiratory Rate 16 02/04/24 21:53 Blood Pressure 174/88 02/05/24 00:00 Pulse Oximetry 97 02/05/24 00:00 Oxygen Delivery Me thod Room Air 02/05/24 00:00 MDM - Fall Medical Decision Making Patient had a fall prior to arrival injuring her left hand, left knee, and left forearm. Skin tears present to left forearm will put Telfa pad on this. Left knee did not demonstrate any acute abnormalities, will treat with RICE therapy. Not related, she had developing redness to her right forearm that has worsened since being bit by her puppy, we will treat for cellulitis with Augmentin. And finally her left ring finger did have a proximal phalanx fracture, spoke with on-call orthopedist Dr. Webber who states that we can splint this and have her follow-up as an outpatient. General return precautions given should be discharged home at this time. Lab Data Radiology Impressions Hand X-Ray 02/04/24 22:08 IMPRESSION: Acute 4th digit proximal phalanx fracture. Knee X-Ray 02/04/24 22:08 IMPRESSION: No acute bony findings. All radiology interpretation(s) finalized by discharge Discharge Plan Discharge Patient Disposition: Home Clinical Impression: Fracture of proximal phalanx of digit of hand, Cellulitis of forearm, right Contusion of knee, left Qualifiers: Encounter type: initial encounter Qualified Code(s): S80.02XA - Contusion of left knee, initial encounter Skin tear of left forearm without complication Qualifiers: Encounter type: initial encounter Qualified Code(s): S51.812A - Laceration without foreign body of left forearm, initial encounter Condition: Stable Prescriptions: New amoxicillin-pot clavulanate 875-125 mg tablet 1 tab PO BID 10 Days Qty: 20 0RF No Action calcium carb-vitamin D3-vit K2 500 mg calcium- 200 unit-90 mcg tablet 1 tab PO DAILY acetaminophen [Tylenol] 325 mg capsule 325 mg PO QID PRN (Reason: Pain) magnesium 250 mg tablet 250 mg PO DAILY doxycycline hyclate 100 mg capsule 100 mg PO BID 30 Days Qty: 60 12RF potassium chloride 20 mEq tablet,ER particles/crystals 40 meq PO DAILY 10 Days Qty: 20 0RF lisinopril 10 mg tablet 10 mg PO DAILY Qty: 90 3RF methenamine hippurate 1 gram tablet 1 g PO BID Qty: 180 3RF Rx Instructions: TAKE 1000 MG OF VITAMIN C WITH EACH DOSE OF METHENAMINE loratadine 10 mg tablet 10 mg PO DAILY Qty: 14 0RF (DME) Compression socks up to knees See Rx Instructions .Route .MEDSUPPLY Qty: 1 0RF Rx Instructions: As directed cephalexin 500 mg capsule 500 mg PO BID 7 Days Qty: 14 0RF atorvastatin 10 mg tablet 10 mg PO BEDTIME Qty: 90 1RF furosemide 40 mg tablet 20 mg PO EVERY OTHER DAY Qty: 30 3RF metoprolol tartrate 25 mg tablet 25 mg PO BID Qty: 180 1RF galantamine 8 mg capsule,ext rel. pellets 24 hr See Rx Instructions .ROUTE .COMPLEX Qty: 90 0RF Dose Instruction: TAKE 1 CAPSULE BY MOUTH EVERY MORNING WITH BREAKFAST Rx Instructions: TAKE 1 CAPSULE BY MOUTH EVERY MORNING WITH BREAKFAST nitrofurantoin monohyd/m-cryst [Macrobid] 100 mg capsule 100 mg PO BID 7 Days Qty: 14 0RF Rx Instructions: must administer with a meal/food memantine 10 mg tablet 10 mg PO BID Qty: 180 3RF Eliquis 2.5 mg tablet 2.5 mg PO BID Qty: 180 0RF ascorbic acid (vitamin C) [Vitamin C] 1,000 mg Tablet 1,000 mg PO BID cyanocobalamin (vitamin B-12) [Vitamin B-12] 100 mcg Tablet 100 mcg PO DAILY pantoprazole [Protonix] 40 mg tablet,delayed release (DR/EC) 40 mg PO BID PRN (Reason: Acid Reflux) Stool Softener-Laxative 8.6-50 mg Tablet 1 tab PO DAILY Qty: 10 0RF oxycodone-acetaminophen 5-325 mg Tablet 1 tab PO Q4H PRN (Reason: Moderate To Severe Pain) Qty: 10 0RF Discharge Orders: Discharge ED (Routine); Ordered 02/05/24 Ordered By: Adarsh Moreno Referrals: Rob Grant MD [Primary Care Provider] - Discharge Diet: Usual diet Discharge Activity: Limit activity as instructed Patient Instructions: Finger Fracture (ED), Cellulitis (ED), Contusion in Adults (ED), Skin Tear (ED) Activity Restrictions/Additional Instructions: Augmentin as prescribed. With your left knee, please rest, ice, compress, and elevate as discussed. You may alternate Tylenol and ibuprofen. Nonadhesive dressing of the skin tear as discussed. With your finger fracture, please follow-up with orthopedics and keep splint on for immobilization. Please return if you develop any new or worsening symptoms. Coding Level of Care Code ED [employer] for Inez Michelle
[2024-02-05] VITALS: BP 174/88; PULSE 57; O2SAT 97
[2024-02-05 00:56] VITALS: BP 174/88; PULSE 60; O2SAT 96
--- NOTE | 2024-02-05 10:01 | PC.SOCIAL ---
Orthopedics Referral Message sent to clinic for f/u appt at this time.
== END 2024-02-05 00:45 | disposition home or self-care (01) ==
PROVIDERS: Emergency Provider Physician Assistant; PCP Family Medicine
DX: S62.614A Displaced fracture of proximal phalanx of right ring finger, initial encounter for closed fracture (principal); S51.812A Laceration without foreign body of left forearm, initial encounter; S80.02XA Contusion of left knee, initial encounter; W03.XXXA Other fall on same level due to collision with another person, initial encounter; L03.113 Cellulitis of right upper limb
CPT/HCPCS: 73130; 73562; 99284

== ENCOUNTER → 2024-02-08 09:06 | Outpatient (BNVA) | payer MEDICARE, OTHER, SELFPAY | PROVIDERS: PCP Family Medicine; Visit Provider Nurse Practitioner | DX: M79.642 Pain in left hand (principal); S62.645A Nondisplaced fracture of proximal phalanx of left ring finger, initial encounter for closed fracture; S80.02XA Contusion of left knee, initial encounter; W19.XXXA Unspecified fall, initial encounter | CPT/HCPCS: 73130 ==

== ENCOUNTER 2024-02-08 11:09 | Outpatient (CLI) | payer MEDICARE, OTHER, SELFPAY | END 2024-02-08 11:10 | disposition home or self-care (01) | LOC: SPT 11:10 | PROVIDERS: PCP Family Medicine; Visit Provider Nurse Practitioner | DX: Z46.89 Encounter for fitting and adjustment of other specified devices (principal); S62.645D Nondisplaced fracture of proximal phalanx of left ring finger, subsequent encounter for fracture with routine healing; X58.XXXD Exposure to other specified factors, subsequent encounter | CPT/HCPCS: 97760; 99204; L3984 ==

== ENCOUNTER → 2024-02-15 14:37 | Outpatient (BNVA) | payer MEDICARE, OTHER, SELFPAY | PROVIDERS: PCP Family Medicine; Visit Provider Nurse Practitioner | DX: S62.615A Displaced fracture of proximal phalanx of left ring finger, initial encounter for closed fracture (principal); S82.132A Displaced fracture of medial condyle of left tibia, initial encounter for closed fracture; X58.XXXA Exposure to other specified factors, initial encounter | CPT/HCPCS: 26720; 27530; 73130; 73560; 73562; 73565; 99204; A4590 ==

== ENCOUNTER 2024-02-16 07:05 | Outpatient (CLI) | payer MEDICARE, OTHER, SELFPAY ==
--- NOTE | 2024-02-16 07:00 | CT_ITS ---
WS: [id number] CT LEFT KNEE, NONCONTRAST HISTORY: Fell 1 week ago. Fracture LEFT knee. Technique: All CT scans at [facility] use at least one of these dose optimization techniques: automated exposure control; mA and/or kV adjustment per patient size (includes targeted exams where dose is matched to clinical indication); or iterative reconstruction. DLP: 657.84 mGy.cm COMPARISON: Radiograph 02/15/2024 Status post plate and screw fixation mid to distal LEFT femur. Moderate hardware artifact. Bones are diffusely osteopenic. Severe narrowing of the joint spaces, greatest involving the lateral compartment. New, acute fracture with minimal depression of the medial tibial plateau. Buckling of the fracture al gato the medial tibial metaphysis. The fracture extends to the tibial plateau surface. Subchondral cys tic changes along the tibial plateau with spurring. No additional acute fractures are identified. The visualized hardware appears appropriate. Extensive atherosclerotic calcification in the femoral and popliteal artery. Small joint effusion. So ft tissue edema along the medial knee from the recent trauma. CT/CT knee LT wo con* [id number] IMPRESSION: 1. Acute minimally depressed medial tibial plateau fracture with extension to the metaphysis. 2. Severe osteopenia. 3. Prior plate and screw fixation distal femur. 4. Severe arthropathy and severe atherosclerosis.
== END 2024-02-16 07:06 | disposition home or self-care (01) ==
PROVIDERS: PCP Family Medicine; Visit Provider Nurse Practitioner
DX: S80.02XA Contusion of left knee, initial encounter (principal); Z98.890 Other specified postprocedural states; Z87.81 Personal history of (healed) traumatic fracture; W19.XXXA Unspecified fall, initial encounter; M85.80 Other specified disorders of bone density and structure, unspecified site; M17.12 Unilateral primary osteoarthritis, left knee
CPT/HCPCS: 73700

== ENCOUNTER → 2024-02-17 09:28 | Outpatient (BNVA) | payer MEDICARE, OTHER, SELFPAY | PROVIDERS: PCP Family Medicine; Visit Provider Nurse Practitioner | DX: S82.132A Displaced fracture of medial condyle of left tibia, initial encounter for closed fracture (principal); X58.XXXA Exposure to other specified factors, initial encounter | CPT/HCPCS: 99024 ==

== ENCOUNTER → 2024-03-01 13:11 | Outpatient (BNVA) | payer MEDICARE, OTHER, SELFPAY | PROVIDERS: PCP Family Medicine; Visit Provider Physician Assistant | DX: Z98.890 Other specified postprocedural states (principal); Z87.81 Personal history of (healed) traumatic fracture | CPT/HCPCS: 73560; 73565; 99213 ==

== ENCOUNTER → 2024-03-09 10:06 | Outpatient (BNVA) | payer MEDICARE, OTHER, SELFPAY | PROVIDERS: PCP Family Medicine; Visit Provider Nurse Practitioner | DX: S62.615D Displaced fracture of proximal phalanx of left ring finger, subsequent encounter for fracture with routine healing; S82.132D Displaced fracture of medial condyle of left tibia, subsequent encounter for closed fracture with routine healing; X58.XXXD Exposure to other specified factors, subsequent encounter | CPT/HCPCS: 73130; 99024 ==

== ENCOUNTER → 2024-03-28 16:05 | Outpatient (BNVA) | payer MEDICARE, OTHER, SELFPAY | PROVIDERS: PCP Family Medicine; Visit Provider Nurse Practitioner | DX: N39.9 Disorder of urinary system, unspecified (principal) | CPT/HCPCS: 81000 ==

== ENCOUNTER → 2024-03-30 15:13 | Outpatient (BNVA) | payer MEDICARE, OTHER, SELFPAY | PROVIDERS: PCP Family Medicine; Visit Provider Nurse Practitioner | DX: S62.615A Displaced fracture of proximal phalanx of left ring finger, initial encounter for closed fracture; S82.132A Displaced fracture of medial condyle of left tibia, initial encounter for closed fracture; X58.XXXA Exposure to other specified factors, initial encounter | CPT/HCPCS: 73110; 73560; 73565; 99212 ==

== ENCOUNTER → 2024-04-22 12:23 | Outpatient (BNVA) | payer MEDICARE, OTHER, SELFPAY | PROVIDERS: PCP Family Medicine; Visit Provider Emergency Medicine | DX: R39.9 Unspecified symptoms and signs involving the genitourinary system (principal) | CPT/HCPCS: 81000 ==

== ENCOUNTER → 2024-04-28 12:23 | Outpatient (BNVA) | payer MEDICARE, OTHER, SELFPAY | PROVIDERS: PCP Family Medicine; Visit Provider Specialist | DX: G30.9 Alzheimer's disease, unspecified; F02.80 Dementia in other diseases classified elsewhere, unspecified severity, without behavioral disturbance, psychotic disturbance, mood disturbance, and anxiety | CPT/HCPCS: 99213 ==

== ENCOUNTER → 2024-05-13 15:32 | Outpatient (BNVA) | payer MEDICARE, OTHER, SELFPAY | PROVIDERS: PCP Family Medicine; Visit Provider Registered Nurse Neonatal Intensive Care | DX: R39.9 Unspecified symptoms and signs involving the genitourinary system (principal) | CPT/HCPCS: 81000; 87077; 87086; 87184 ==

== ENCOUNTER → 2024-06-20 13:27 | Outpatient (BNVA) | payer MEDICARE, OTHER, SELFPAY | PROVIDERS: PCP Family Medicine | DX: R39.9 Unspecified symptoms and signs involving the genitourinary system (principal); R33.9 Retention of urine, unspecified | CPT/HCPCS: 81000 ==

== ENCOUNTER → 2024-07-06 12:58 | Outpatient (BNVA) | payer MEDICARE, OTHER, SELFPAY | PROVIDERS: PCP Family Medicine; Visit Provider Family Medicine | DX: R39.9 Unspecified symptoms and signs involving the genitourinary system (principal) | CPT/HCPCS: 81000 ==

== ENCOUNTER → 2024-07-15 15:27 | Outpatient (BNVA) | payer MEDICARE, OTHER, SELFPAY | PROVIDERS: PCP Family Medicine; Visit Provider Family Medicine | DX: N39.0 Urinary tract infection, site not specified (principal) | CPT/HCPCS: 81000 ==

== ENCOUNTER 2024-07-26 11:29 | Emergency (ER) | payer MEDICARE, OTHER, SELFPAY ==
[2024-07-26 11:44] VITALS: BP 134/77; PULSE 71; TEMP 36.8; O2SAT 97; BMI 21.6
--- NOTE | 2024-07-26 11:52 | W.ED.FEMALGU ---
HPI - Female Genitourinary General: Chief complaint: Urogenital-Female Stated complaint: pain when urinating, lower back pain Time Seen by Provider: 07/26/24 11:41 Source: patient and family Mode of arrival: wheelchair Limitations: no limitations History of Present Illness: Patient is an 83-year-old female who presents to the ED today with continued complaints of urinary urgency, frequency, dysuria, cloudy urine, UTI . Patient has been seen multiple multiple times over the past four months for the symptoms. These are outlined below: 03/2024 placed on Cephalexin 04/2024 placed on Macrobid 05/2024 placed on Augmentin 06/2024 placed on Amoxicillin 06/2024 placed on Ciprofloxacin 07/2024 placed on Bactrim Out of all these visits-only one culture performed on her urine in May 2024 growing cerda sensitive E. Coli. On her last visit with her PCP/ Dr. Grant she did receive referral to see urology. She is scheduled for this appointment next Thursday with Dr. Liz. Patient does tell me she thinks she has a prolapsed bladder as she can feel it when she wipes and thinks this may be contibuting to symptoms. MD elicited complaint: dysuria, UTI , back pain and prolapse Onset (ago): month(s) Severity: moderate Consistency: constant Vaginal discharge: none Vaginal bleeding: none Urinary symptoms: Dysuria, Frequency and Urgency Exacerbating factors: urination Relieving factors: none Associated symptoms: Deny abdominal pain or nausea Treatment prior to arrival: none Sexual activity: No Patient : No Related Data Home Medications ?Medication ?Instructions ?Recorded ?Confirmed magnesium 250 mg tablet 250 mg PO DAILY 06/14/19 07/26/24 calcium 500 mg (as 1 tab PO DAILY 12/26/20 07/26/24 carbonate)-vitamin D3 200 unit-vit K2 90 mcg tablet ascorbic acid (vitamin C) 1,000 mg 1,000 mg PO BID 06/16/22 07/26/24 tablet (Vitamin C) cyanocobalamin (vitamin B-12) 100 100 mcg PO DAILY 08/04/22 07/26/24 mcg tablet (Vitamin B-12) loratadine 10 mg tablet 10 mg PO DAILY PRN allergies 07/26/24 07/26/24 Previous Rx's ?Medication ?Instructions ?Recorded Compression socks up to knees #1 ea 01/14/23 fast form ulnar gutter splint #1 ea 02/08/24 left knee ROM blusto Brace #1 ea 02/15/24 galantamine 4 mg tablet 4 mg PO BID #180 tabs 04/28/24 memantine 10 mg tablet 10 mg PO BID #180 tabs 04/28/24 methenamine hippurate 1 gram tablet 1 g PO BID #180 tabs 07/15/24 apixaban 2.5 mg tablet (Eliquis) 2.5 mg PO BID #180 tabs 07/16/24 amoxicillin 875 mg-potassium 1 tab PO BID #14 tabs 07/26/24 clavulanate 125 mg tablet phenazopyridine 200 mg tablet 200 mg PO Q8H PRN pain 6 doses #6 07/26/24 (Pyridium) tabs Allergies Allergy/AdvReac Type Severity Reaction Status Date / Time ezetimibe (From Zetia) Allergy unknown Verified 07/26/24 11:49 fenofibrate Allergy unknown Verified 07/26/24 11:49 lovastatin Allergy unknown Verified 07/26/24 11:49 simvastatin (From Vytorin) Allergy unknown Verified 07/26/24 11:49 Review of Systems Const: Denies: fever(s), chills, body aches, fatigue or malaise Card: Denies: chest pain Resp: Denies: dyspnea GI: Denies: abdominal pain, nausea, vomiting or diarrhea : Reports: dysuria, urinary frequency, urinary urgency, urinary hesitancy and prolapse symptoms; Denies: flank pain Musc: Reports: back pain Skin/Breast: Denies: rash Neuro: Denies: dizziness [facility] ED PFSH: Medical History Left medial tibial plateau fracture Contusion of left knee Afib on digoxin, metoprolol, eliquis, follows with Dr Mitchell Status post closed fracture of left femur Closed fracture of left distal femur Femur fracture, left Chronic cystitis Prosthetic joint infection Anemia Osteoarthritis of left knee Left knee pain 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, treated with chronic doxycycline, followed by Dr Catina CHÁVEZ in [place], and referred to specialist in [facility] Essential hypertension Alzheimer disease Dyslipidemia Urgency incontinence Lower extremity edema Chronic venous insufficiency Valgus deformity, not elsewhere classified, left knee Primary osteoarthritis of left knee Bilateral knee pain Diabetic peripheral neuropathy associated with type 2 diabetes mellitus diabetes resolved with weight loss, neuropathy persisted DM type 2 (diabetes mellitus, type 2) Improved after weight loss not on any antihyperglycemics Chronic anticoagulation eliquis, secondary to atrial fibrillation Bueno esophagus Recurrent UTI Incomplete emptying of bladder follows with [facility] Surgical History History of bilateral cataract extraction History of hysterectomy Amputated toe of right foot History of tonsillectomy History of appendectomy History of knee replacement right knee, with subsequent revision and later infection in replaced joint, treated with chronic doxycycline, followed by ID H/O shoulder surgery Family History Father , at age 80 Cancer Bleeding disorder Diabetes Mother , at age 36 complication Other Seizure Denies family history of CAD (coronary artery disease) Clotting disorder Dementia Chronic kidney disease (CKD) Suicide Anesthesia complication Lung disease Stroke Social History Smoking and tobacco/nicotine status: never used tobacco/nicotine Second hand smoke exposure: No Alcohol intake: current Alcohol intake frequency: holidays/special occasions only Alcohol type: wine Substance/Drug Use: never Adopted: No Caregiver/support person: No Lives independently: Yes Marital status: / Current occupational status: retired Physical Exam Const: COMMON NORMALS: no acute distress, average body habitus, patient oriented x3, no limitations, healthy appearing, alert and well nourished GENERAL APPEARANCE: cooperative ORIENTATION/CONSCIOUSNESS: Yes awake, Yes oriented to person, Yes oriented to place and Yes oriented to time Resp: COMMON NORMALS: normal respiratory effort and clear to auscultation bilaterally AUSCULTATION: clear to auscultation bilaterally Cardio: COMMON NORMALS: regular rate and regular rhythm RATE: regular rate RHYTHM: regular rhythm GI: COMMON NORMALS: Normal to inspection, nondistended, normoactive bowel sounds present, Soft to palpation, non-tender, No hepatosplenomegaly present and no masses INSPECTION: Yes normal to inspection PALPATION: Yes Soft to palpation and Yes No hepatosplenomegaly present : COMMON NORMALS: Yes no CVA tenderness BLADDER/KIDNEY EXAM: Yes no CVA tenderness Back/Pelvis: COMMON NORMALS: no CVA tenderness, thoracic and lumbar spine normal to inspection and thoraco-lumbar ROM normal OTHER: mild pain across lower back Neuro: COMMON NORMALS: patient oriented x3 SENSORIUM/ORIENTATION: Yes alert, Yes oriented to person, Yes oriented to place and Yes oriented to time Course Vital Signs: Vital signs: Vital Signs Temperature 98.2 F 07/26/24 11:44 Pulse Rate 71 07/26/24 11:44 Blood Pressure 134/77 07/26/24 11:44 Pulse Oximetry 97 07/26/24 11:44 Oxygen Delivery Me thod Room Air 07/26/24 11:44 MDM - Female Medical Decision Making Patient's blood work is unremarkable. Her UA today does show 3+ leukocyte esterase, 2+ blood, and greater than 100 WBCs. Will culture today's urine. Family is requesting something to help with symptoms until they can see Dr. Liz next week. I think symptoms are multifactorial including related to her bladder prolapse and chronic cystitis possible interstitial cystitis/bladder pain syndrome. Give her a prescription for Pyridium that she may use. Recommend she not use this 48 hours prior to to her appointment with Dr. Liz. Will place on Augmentin until this appointment. Last culture in May grew E. Coli cerda sensitive. She did have culture last September 2023 which grew ESBL E. Coli sensitive to Augmentin. Medical Records I reviewed the patient's medical records. Lab Data I reviewed the patient's lab results. 07/26/24 12:12 07/26/24 12:12 Laboratory Results WBC 7.53 10^3/uL (3.29-11.43) 07/26/24 12:12 RBC 3.83 10^6/uL (3.85-5.65) L 07/26/24 12:12 Hgb 11.90 g/dL (11.27-16.99) 07/26/24 12:12 Hct 36.6 % (36-47) 07/26/24 12:12 MCV 95.6 fl (85-98) 07/26/24 12:12 MCH 31.1 pg (27-33) 07/26/24 12:12 MCHC 32.5 g/dL (30-55) 07/26/24 12:12 RDW 12.9 % (12.1-15.1) 07/26/24 12:12 Plt Count 225 10^3/cmm (157-399) 07/26/24 12:12 MPV 9.4 fL (7.4-10.4) 07/26/24 12:12 Neut % (Auto) 77.5 % 07/26/24 12:12 Lymph % (Auto) 13.7 % 07/26/24 12:12 [place] % (Auto) 6.8 % 07/26/24 12:12 Eos % (Auto) 1.3 % 07/26/24 12:12 Baso % (Auto) 0.4 % 07/26/24 12:12 Neut # (Auto) 5.84 10^3/uL (1.8-7.7) 07/26/24 12:12 Lymph # (Auto) 1.0 10^3/uL (0.8-4.8) 07/26/24 12:12 [place] # (Auto) 0.5 10^3/uL (0.2-0.9) 07/26/24 12:12 Eos # (Auto) 0.1 10^3/uL (0.0-0.8) 07/26/24 12:12 Baso # (Auto) 0.0 10^3/uL (0.0-0.1) 07/26/24 12:12 Nucleated RBC % (auto) 0 % 07/26/24 12:12 Nucleated RBCs # 0.0 /100WBC 07/26/24 12:12 Sodium 138 mmol/L (136-145) 07/26/24 12:12 Potassium 4.4 mmol/L (3.5-5.1) 07/26/24 12:12 Chloride 102 mmol/L (98-107) 07/26/24 12:12 Carbon Dioxide 23 mmol/L (22-29) 07/26/24 12:12 Anion Gap 17.4 (5-19) 07/26/24 12:12 BUN 24 mg/dL (8-23) H 07/26/24 12:12 Creatinine 0.7 mg/dL (0.5-0.9) 07/26/24 12:12 GFR Calculation Not Reportable 07/26/24 12:12 Glucose 102 mg/dL (65-115) 07/26/24 12:12 Calculated Osmolality 290 mOsm/kg (285-295) 07/26/24 12:12 Calcium 8.8 mg/dL (8.5-10.5) 07/26/24 12:12 Total Bilirubin 0.2 mg/dL (0.15-1.2) 07/26/24 12:12 AST 17 U/L (0-32) 07/26/24 12:12 ALT 12 U/L (0-33) 07/26/24 12:12 Alkaline Phosphatase 72 U/L (35-105) 07/26/24 12:12 Total Protein 6.3 g/dL (6.6-8.7) L 07/26/24 12:12 Albumin 3.8 g/dL (3.5-5.2) 07/26/24 12:12 Globulin 2.5 g/dL (1.3-4.6) 07/26/24 12:12 Urine Color Yellow (Yellow) 07/26/24 11:54 Urine Appearance Turbid (CLEAR) A 07/26/24 11:54 Urine pH 5.5 (5-7) 07/26/24 11:54 Ur Specific [place] 1.016 (1.005-1.030) 07/26/24 11:54 Urine Protein 2+ (Negative) A 07/26/24 11:54 Urine Glucose (UA) Negative (Normal) 07/26/24 11:54 Urine Ketones Negative (Negative) 07/26/24 11:54 Urine Blood 2+ (Negative) A 07/26/24 11:54 Urine Nitrate Negative (Negative) 07/26/24 11:54 Urine Bilirubin Negative (Negative) 07/26/24 11:54 Urine Urobilinogen 0.2 mg/dL (Negative) 07/26/24 11:54 Ur Leukocyte Esterase 3+ (Negative) A 07/26/24 11:54 Urine RBC 6-10 /hpf (0-2) 07/26/24 11:54 Urine WBC >100 /hpf (0-5) H 07/26/24 11:54 Ur Squamous Epith Cells 6-10 /hpf (0-5) 07/26/24 11:54 Amorphous Sediment Not Reportable 07/26/24 11:54 Urine Bacteria 1+ /hpf (NONE) H 07/26/24 11:54 Hyaline Casts 3.68 /lpf 07/26/24 11:54 No radiology studies performed this visit Discharge Plan Discharge Patient Disposition: Home Clinical Impression: Chronic cystitis Condition: Stable Prescriptions: New amoxicillin-pot clavulanate 875-125 mg tablet 1 tab PO BID Qty: 14 0RF phenazopyridine [Pyridium] 200 mg tablet 200 mg PO Q8H PRN (Reason: pain) Qty: 6 0RF No Action calcium carb-vitamin D3-vit K2 500 mg calcium- 200 unit-90 mcg tablet 1 tab PO DAILY magnesium 250 mg tablet 250 mg PO DAILY (DME) fast form ulnar gutter splint See Rx Instructions .Route .MEDSUPPLY Qty: 1 0RF Rx Instructions: As directed methenamine hippurate 1 gram tablet 1 g PO BID Qty: 180 1RF Eliquis 2.5 mg tablet 2.5 mg PO BID Qty: 180 3RF (DME) Compression socks up to knees See Rx Instructions .Route .MEDSUPPLY Qty: 1 0RF Rx Instructions: As directed galantamine 4 mg tablet 4 mg PO BID Qty: 180 3RF Rx Instructions: administer with AM and PM meals memantine 10 mg tablet 10 mg PO BID Qty: 180 3RF (DME) left knee ROM blusto Brace See Rx Instructions .Route .MEDSUPPLY Qty: 1 0RF Rx Instructions: As directed ascorbic acid (vitamin C) [Vitamin C] 1,000 mg Tablet 1,000 mg PO BID cyanocobalamin (vitamin B-12) [Vitamin B-12] 100 mcg Tablet 100 mcg PO DAILY loratadine 10 mg tablet 10 mg PO DAILY PRN (Reason: allergies) Discharge Orders: Discharge ED (Routine); Ordered 07/26/24 Ordered By: sAia Perez Referrals: Rob Grant MD [Primary Care Provider] - Activity Restrictions/Additional Instructions: As we discussed, please follow-up with Dr. Liz next week as scheduled. Do not take the Pyridium at least 48 hours before this appointment and this could obscure some of the testing that he would like to perform. Print Language: Macedonian Coding Level of Care Code ED [employer]
[2024-07-26 12:12] LABS: Bilirubin Urine Negative (Negative); Blood Urine 2+ (Negative); Glucose Urine UA Negative (Normal); Ketones Urine Negative (Negative); Leukocyte Esterase Urine 3+ (Negative); Nitrate Urine Negative (Negative); Protein Urine 2+ (Negative); Specific Gravity, Urine 1.016 (1.005-1.030); Urine Appearance Turbid (CLEAR); Urine Color Yellow (Yellow); Urobilinogen Urine 0.2 mg/dL (Negative); pH Urine 5.5 (5-7)
[2024-07-26 12:15] LABS: Add Urine Microscopic? YES; Bacteria Urine 1+ /hpf; Hyaline Casts Urine 3.68 /lpf; WBC Urine >100 /hpf (0-5)
[2024-07-26 12:18] LABS: Basophils % 0.4 %; Eosinophils # 0.1 10^3/uL (0.0-0.8); Eosinophils % 1.3 %; Hematocrit 36.6 % (36-47); Lymphocytes % 13.7 %; Mean Corpuscular HGB Conc 32.5 g/dL (30-55); Mean Corpuscular Hemoglobin 31.1 pg (27-33); Mean Corpuscular Volume 95.6 fl (85-98); Mean Platelet Volume 9.4 fL (7.4-10.4); Monocytes # 0.5 10^3/uL (0.2-0.9); Monocytes % 6.8 %; Neutrophils # 5.84 10^3/uL (1.8-7.7); Neutrophils % 77.5 %; Nucleated Red Blood Cells % 0 %; Platelet Count 225 10^3/cmm (157-399); Red Blood Count 3.83 10^6/uL (3.85-5.65); Red Cell Distribution Width 12.9 % (12.1-15.1); White Blood Count 7.53 10^3/uL (3.29-11.43)
[2024-07-26 12:45] LABS: Add Urine Culture? Yes; UA Slide Review UA Slide Review Perf
[2024-07-26 12:46] LABS: Alanine Aminotransferase 12 U/L (0-33); Albumin Level 3.8 g/dL (3.5-5.2); Alkaline Phosphatase 72 U/L (35-105); Anion Gap 17.4 (5-19); Aspartate Amino Transferase 17 U/L (0-32); Blood Urea Nitrogen 24 mg/dL (8-23); Calcium 8.8 mg/dL (8.5-10.5); Carbon Dioxide 23 mmol/L (22-29); Chloride 102 mmol/L (98-107); Creatinine Clr Calc Pharmacy 49.4599; Globulin 2.5 g/dL (1.3-4.6); Glucose 102 mg/dL (65-115); Osmolality Calculated 290 mOsm/kg (285-295); Potassium 4.4 mmol/L (3.5-5.1); Sodium 138 mmol/L (136-145); Total Bilirubin 0.2 mg/dL (0.15-1.2); Total Protein 6.3 g/dL (6.6-8.7)
[2024-07-26 13:08] VITALS: BP 144/86; PULSE 65; O2SAT 98
== END 2024-07-26 13:10 | disposition home or self-care (01) ==
PROVIDERS: Family Medicine; Emergency Provider Physician Assistant; PCP Family Medicine
DX: N30.20 Other chronic cystitis without hematuria (principal); Z79.01 Long term (current) use of anticoagulants; E11.9 Type 2 diabetes mellitus without complications; I10 Essential (primary) hypertension
CPT/HCPCS: 36415; 80053; 81001; 85025; 87077; 87086; 87186; 99283

== ENCOUNTER 2024-08-17 10:15 | Outpatient (CLI) | payer MEDICARE, OTHER, SELFPAY ==
--- NOTE | 2024-08-17 10:25 | US_ITS ---
WS: [id number] RENAL ULTRASOUND URINARY BLADDER ULTRASOUND HISTORY: recurrent UTI COMPARISON: None available. TECHNIQUE: 2-D and color Doppler imaging of the kidney submitted. Right kidney: 11.1 cm x 5.0 cm x 4.8 cm. Normal echogenicity with no hydronephrosis or mass. Mild cortical thinning in the lower pole. Left kidney: 9.6 cm x 4.0 cm x 4.3 cm. Normal echogenicity with no hydronephrosis or mass. Aorta: Mild atherosclerotic plaque. Urinary Bladder: Normal distention. Prevoid volume: 90 mL. Postvoid volume: 38 mL. US/US renal BI with PV bladder IMPRESSION: 1. No renal obstruction or solid mass. 2. Minimal post void residual within the urinary bladder.
== END 2024-08-17 10:16 | disposition home or self-care (01) ==
LOC: RAD 10:18
PROVIDERS: PCP Family Medicine; Visit Provider Nurse Practitioner Family
DX: N39.0 Urinary tract infection, site not specified (principal); R93.421 Abnormal radiologic findings on diagnostic imaging of right kidney; I70.0 Atherosclerosis of aorta
CPT/HCPCS: 76770; 76857

== ENCOUNTER → 2024-10-27 12:41 | Outpatient (BNVA) | payer MEDICARE, OTHER, SELFPAY | PROVIDERS: PCP Family Medicine; Visit Provider Specialist | DX: R41.3 Other amnesia (principal); G30.9 Alzheimer's disease, unspecified; F02.80 Dementia in other diseases classified elsewhere, unspecified severity, without behavioral disturbance, psychotic disturbance, mood disturbance, and anxiety | CPT/HCPCS: 99213 ==

== ENCOUNTER → 2024-11-08 13:24 | Outpatient (BNVA) | payer MEDICARE, OTHER, SELFPAY | PROVIDERS: PCP Family Medicine; Visit Provider Student in an Organized Health Care Education/Training Program | DX: M17.12 Unilateral primary osteoarthritis, left knee (principal) | CPT/HCPCS: 36415; 80053; 85025; 85651; 86140; 99215 ==

== ENCOUNTER → 2025-01-30 13:05 | Outpatient (BNVA) | payer MEDICARE, OTHER, SELFPAY | PROVIDERS: PCP Family Medicine; Visit Provider Thoracic Surgery (Cardiothoracic Vascular Surgery) | DX: E11.52 Type 2 diabetes mellitus with diabetic peripheral angiopathy with gangrene (principal); E11.622 Type 2 diabetes mellitus with other skin ulcer; L97.812 Non-pressure chronic ulcer of other part of right lower leg with fat layer exposed | CPT/HCPCS: 11042 ==

== ENCOUNTER → 2025-02-06 13:44 | Outpatient (BNVA) | payer MEDICARE, OTHER, SELFPAY | PROVIDERS: PCP Family Medicine; Visit Provider Thoracic Surgery (Cardiothoracic Vascular Surgery) | DX: E11.52 Type 2 diabetes mellitus with diabetic peripheral angiopathy with gangrene (principal); E11.622 Type 2 diabetes mellitus with other skin ulcer; L97.811 Non-pressure chronic ulcer of other part of right lower leg limited to breakdown of skin | CPT/HCPCS: 97597 ==

== ENCOUNTER → 2025-02-13 13:44 | Outpatient (BNVA) | payer MEDICARE, OTHER, SELFPAY | PROVIDERS: PCP Family Medicine; Visit Provider Thoracic Surgery (Cardiothoracic Vascular Surgery) | DX: E11.52 Type 2 diabetes mellitus with diabetic peripheral angiopathy with gangrene (principal); E11.622 Type 2 diabetes mellitus with other skin ulcer; L97.811 Non-pressure chronic ulcer of other part of right lower leg limited to breakdown of skin | CPT/HCPCS: 97597 ==

== ENCOUNTER → 2025-02-16 15:01 | Outpatient (BNVA) | payer MEDICARE, OTHER, SELFPAY | PROVIDERS: PCP Family Medicine; Visit Provider Student in an Organized Health Care Education/Training Program | DX: M00.9 Pyogenic arthritis, unspecified (principal) | CPT/HCPCS: 36415; 85651; 86140 ==

== ENCOUNTER → 2025-02-27 13:29 | Outpatient (BNVA) | payer MEDICARE, OTHER, SELFPAY | PROVIDERS: PCP Family Medicine; Visit Provider Thoracic Surgery (Cardiothoracic Vascular Surgery) | DX: E11.52 Type 2 diabetes mellitus with diabetic peripheral angiopathy with gangrene (principal); E11.622 Type 2 diabetes mellitus with other skin ulcer; L97.811 Non-pressure chronic ulcer of other part of right lower leg limited to breakdown of skin | CPT/HCPCS: 87070; 87176; 87205; 97597 ==

== ENCOUNTER → 2025-03-16 13:05 | Outpatient (BNVA) | payer MEDICARE, OTHER, SELFPAY | PROVIDERS: PCP Family Medicine; Visit Provider Thoracic Surgery (Cardiothoracic Vascular Surgery) | DX: E11.52 Type 2 diabetes mellitus with diabetic peripheral angiopathy with gangrene (principal); E11.622 Type 2 diabetes mellitus with other skin ulcer; L97.811 Non-pressure chronic ulcer of other part of right lower leg limited to breakdown of skin | CPT/HCPCS: 99212; A6212 ==

== ENCOUNTER → 2025-04-14 10:53 | Outpatient (BNVA) | payer MEDICARE, OTHER, SELFPAY | PROVIDERS: PCP Family Medicine; Visit Provider Thoracic Surgery (Cardiothoracic Vascular Surgery) | DX: E11.52 Type 2 diabetes mellitus with diabetic peripheral angiopathy with gangrene (principal); E11.622 Type 2 diabetes mellitus with other skin ulcer; L97.811 Non-pressure chronic ulcer of other part of right lower leg limited to breakdown of skin | CPT/HCPCS: 97597 ==